=== PATIENT | male | born 1970 | race Caucasian/White ===

== ENCOUNTER 2020-01-10 10:10 | Outpatient (REF) | payer OTHER, SELFPAY ==
--- NOTE | 2020-01-10 10:27 | XR_ITS ---
EXAMINATION: XR BOTH KNEES AP STANDING XR LEFT KNEE, 2 VIEWS CLINICAL INFORMATION: Unilateral primary osteoarthritis in the left knee. COMPARISON: None. TECHNIQUE: Standing AP view of both knees and lateral and sunrise views of the left knee. FINDINGS: Left Knee: Screw tracks are evident within the tibial plateau from prior ORIF. Multiple punctate radiodense foreign bodies are present in the posterior lateral aspect of the knee, presumably related to prior surgical intervention or prior injury. No acute fractures are identified. The patella is absent. There is moderate osteophytes in the medial lateral compartments with nonuniform joint space narrowing, marginal osteophytes, cortical irregularity, and chondrocalcinosis. No appreciable joint effusion. Small foci of heterotopic ossification are present in the expected location of the patella. Right Knee: Moderate medial compartment osteoarthritis with joint space narrowing and marginal osteophytes. More mild lateral compartment osteophytes. Varus angulation is present at the right knee. Chondrocalcinosis is noted. IMPRESSION: Surgical absence of the left patella. Chronic postsurgical changes of prior ORIF of the tibial plateau with numerous punctate foreign bodies in the soft tissues surrounding the left knee. Moderate osteoarthritis in the left knee medial and lateral compartments. Moderate osteoarthritis in the medial compartment of the right knee with varus angulation.
== END 2020-01-10 10:11 | disposition home or self-care (01) ==
LOC: CF 10:10
PROVIDERS: PCP Internal Medicine; Visit Provider Orthopaedic Surgery
DX: M17.32 Unilateral post-traumatic osteoarthritis, left knee (principal)
CPT/HCPCS: 20610; 73562; 99204; J1100

== ENCOUNTER → 2020-02-14 10:39 | Outpatient (BNVA) | payer OTHER, SELFPAY | PROVIDERS: Visit Provider Orthopaedic Surgery | DX: M17.32 Unilateral post-traumatic osteoarthritis, left knee (principal); T14.90XS Injury, unspecified, sequela; M22.90 Unspecified disorder of patella, unspecified knee | CPT/HCPCS: 99212 ==

== ENCOUNTER 2020-03-05 09:04 | Outpatient (REF) | payer OTHER, SELFPAY | END 2020-03-05 09:05 | disposition home or self-care (01) | LOC: HO.HAP 09:04 | PROVIDERS: PCP Allergy & Immunology Allergy; Referring Provider Allergy & Immunology Allergy; Visit Provider Allergy & Immunology Allergy | DX: Z13.89 Encounter for screening for other disorder (principal) | CPT/HCPCS: 92700 ==

== ENCOUNTER 2020-03-19 14:21 | Outpatient (REF) | payer OTHER, SELFPAY | END 2020-03-19 14:22 | disposition home or self-care (01) | LOC: HO.HAP 14:21 | PROVIDERS: Visit Provider Allergy & Immunology Allergy | DX: Z13.89 Encounter for screening for other disorder (principal) ==

== ENCOUNTER 2020-05-01 08:42 | Outpatient (REF) | payer OTHER, SELFPAY ==
--- NOTE | 2020-05-01 08:46 | MR_ITS ---
EXAMINATION: MR KNEE WITHOUT CONTRAST, LEFT CLINICAL INFORMATION: Left knee pain. COMPARISON: Radiographs 01/10/2020. TECHNIQUE: MRI of the knee without contrast was performed using routine sequences on a high-field scanner. There is extensive micrometallic artifact from previous surgeries that obscure visualization. FINDINGS: MENISCI: Medial Meniscus: Visualization is largely obscured. No definite tear. Meniscal body is slightly attenuated and extruded. Lateral Meniscus: Visualization is predominately obscured. No obvious tear. LIGAMENTS: Cruciate: Visualization is obscured by artifact. The posterior cruciate ligament is intact. The ACL is not visualized, possibly a chronic complete tear with resorption. Collateral: Intact. EXTENSOR MECHANISM: The patella is essentially absent. There may be a few small ossific fragments remaining, with the quadriceps and patellar tendons appearing intact. ARTICULAR CARTILAGE/BONE: Patellofemoral Compartment: Cartilage thinning throughout the trochlea. Medial Compartment: Mild cartilage thinning with areas of surface irregularity throughout the weightbearing aspect with marginal osteophytes. Lateral Compartment: Prominent marginal osteophytes. JOINT FLUID AND BURSAE: Trace joint effusion. MR/MR knee LT wo con IMPRESSION: Postsurgical changes as described with extensive metallic artifact. Probable chronic complete ACL tear with resorption. No definite meniscal tear. The medial meniscus body is slightly attenuated and extruded. Postsurgical changes of the extensor mechanism with no acute abnormality. [id number] medial and lateral compartment osteoarthritis with a trace joint effusion.
== END 2020-05-01 08:43 | disposition home or self-care (01) ==
LOC: HO.MRI 08:42
PROVIDERS: Visit Provider Orthopaedic Surgery
DX: M17.32 Unilateral post-traumatic osteoarthritis, left knee (principal)
CPT/HCPCS: 73721

== ENCOUNTER → 2020-05-08 10:38 | Outpatient (BNVA) | payer OTHER, SELFPAY | PROVIDERS: Visit Provider Orthopaedic Surgery | DX: M22.92 Unspecified disorder of patella, left knee (principal); M17.32 Unilateral post-traumatic osteoarthritis, left knee; T14.90XS Injury, unspecified, sequela | CPT/HCPCS: 99212 ==

== ENCOUNTER 2020-06-09 08:45 | Outpatient (REF) | payer OTHER, SELFPAY ==
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
== END 2020-06-09 08:46 | disposition home or self-care (01) ==
LOC: HO.SH 08:45
PROVIDERS: Visit Provider Internal Medicine
DX: Z46.1 Encounter for fitting and adjustment of hearing aid (principal); H90.3 Sensorineural hearing loss, bilateral; H93.13 Tinnitus, bilateral
CPT/HCPCS: 92557; 92567; 92593; 99499

== ENCOUNTER → 2020-06-12 11:16 | Outpatient (BNVA) | payer OTHER, SELFPAY | PROVIDERS: PCP Internal Medicine; Visit Provider Orthopaedic Surgery | DX: M17.32 Unilateral post-traumatic osteoarthritis, left knee (principal); M22.90 Unspecified disorder of patella, unspecified knee; M17.11 Unilateral primary osteoarthritis, right knee; S06.9X9A Unspecified intracranial injury with loss of consciousness of unspecified duration, initial encounter | CPT/HCPCS: 20610; 99212; J1100; J7318 ==

== ENCOUNTER → 2020-07-10 09:36 | Outpatient (BNVA) | payer OTHER, SELFPAY | PROVIDERS: Visit Provider Orthopaedic Surgery | DX: M17.32 Unilateral post-traumatic osteoarthritis, left knee (principal) | CPT/HCPCS: 99212 ==

== ENCOUNTER 2020-09-04 09:46 | Outpatient (REF) | payer OTHER, SELFPAY ==
--- NOTE | 2020-09-04 11:16 | ECG_ITS ---
Test Reason : PREOP Blood Pressure : / mmHG Vent. Rate : 089 BPM Atrial Rate : 089 BPM P-R Int : 144 ms QRS Dur : 078 ms QT Int : 352 ms P-R-T Axes : 059 022 045 degrees QTc Int : 428 ms Normal sinus rhythm Normal ECG No previous ECGs available Referred By: Valentín Alejandro Electronically Signed By:Lakhwinder Atkinson
[2020-09-04 12:12] LABS: MANUAL DIFF FLAG NO
[2020-09-04 12:20] LABS: Basophils Percent Auto 0.5 % (0-2); Eosinophils Absolute Auto 0.1 X10*3/uL (0.0-0.4); Eosinophils Percent Auto 0.9 % (0-4); Hematocrit 42.2 % (42-52); Hemoglobin 14.4 g/dl (14.0-18.0); Imm Gran Abs Auto 0.05 X10*3/uL (0.00-0.03); Imm Gran Pct Auto 0.6 % (0.0-0.4); Lymphocytes Percent Auto 25.6 % (20-40); Mean Corpuscular HGB Conc 34.1 g/dl (31.0-36.0); Mean Corpuscular Hemoglobin 28.1 pg (27.0-33.0); Mean Corpuscular Volume 82.3 fL (80-98); Mean Platelet Volume 9.9 fL (9.4-12.4); Monocytes Absolute Auto 0.6 X10*3/uL (0.1-1.2); Monocytes Percent Auto 7.7 % (2-11); Neutrophils Absolute Auto 5.2 X10*3/uL (2.0-8.3); Neutrophils Percent Auto 64.7 % (45-73); Platelet Count 212 X10*3/uL (160-400); Red Blood Count 5.13 X10*6/uL (4.60-5.80); Red Cell Distribution Width 12.1 % (11.0-16.0)
[2020-09-04 13:00] LABS: Anion Gap 11 (12-20); Blood Urea Nitrogen 6 mg/dL (9-16); Calcium 9.6 mg/dL (8.4-10.2); Carbon Dioxide 29 mmol/L (22-29); Chloride 105 mmol/L (96-108); Estimated Glomerular Filt Rate > 60; Glucose Random 104 mg/dL (60-115); Potassium 4.2 mmol/L (3.3-5.1); Sodium 141 mmol/L (135-145)
== END 2020-09-04 09:47 | disposition home or self-care (01) ==
LOC: HO.LAB 09:46
PROVIDERS: PCP Internal Medicine; Visit Provider Orthopaedic Surgery
DX: Z01.810 Encounter for preprocedural cardiovascular examination (principal); Z01.812 Encounter for preprocedural laboratory examination
CPT/HCPCS: 36415; 80048; 85025; 93005

== ENCOUNTER 2020-09-25 08:26 | Outpatient (REF) | payer OTHER, SELFPAY ==
[2020-09-25 11:58] LABS: Cholesterol 235 mg/dL; HDL Cholesterol 33 mg/dL; Triglycerides 421 mg/dL
[2020-09-25 12:05] LABS: TSH reflex Free T4 0.32 uIU/mL (0.32-4.0); Vitamin D 25-OH Total 22.7 ng/mL (>30)
[2020-09-25 12:23] LABS: Folate 18.6 ng/mL (> or = 4.0); Vitamin B12 477 pg/mL (200-900)
== END 2020-09-25 08:27 | disposition home or self-care (01) ==
LOC: HO.WFDLDS 08:26
PROVIDERS: Visit Provider Internal Medicine
DX: E05.90 Thyrotoxicosis, unspecified without thyrotoxic crisis or storm (principal); E55.9 Vitamin D deficiency, unspecified
CPT/HCPCS: 36415; 80061; 82306; 82607; 82746; 84443

== ENCOUNTER 2020-10-14 07:00 | Outpatient (RCR) | payer OTHER, SELFPAY | END 2021-04-20 09:21 | disposition home or self-care (01) | LOC: HO.PTWFD 07:00 | PROVIDERS: PCP Internal Medicine; Visit Provider Orthopaedic Surgery | DX: M22.90 Unspecified disorder of patella, unspecified knee (principal) | CPT/HCPCS: 97110; 97116; 97162; 97530; 97535 ==

== ENCOUNTER → 2020-10-23 12:37 | Outpatient (BNVA) | payer OTHER, SELFPAY | PROVIDERS: Visit Provider Physician Assistant | DX: Z01.812 Encounter for preprocedural laboratory examination (principal); M17.32 Unilateral post-traumatic osteoarthritis, left knee; F17.210 Nicotine dependence, cigarettes, uncomplicated | CPT/HCPCS: 99212 ==

== ENCOUNTER 2020-10-28 08:16 | Inpatient (IN) | payer OTHER, SELFPAY ==
--- NOTE | 2020-10-03 11:49 | HO.ANESPROP2 ---
Documented by User: Gertrude Boseney 10/27/20 08:20 HPI - Anesthesia Eval Consult details Narrative: 50yo M for Left Knee Replacement Total PCP cleared [facility] Active Problems Active Problems: All Active Problems (Updated 10/03/20 @ 09:07 by Eboni Cardenas) Patellar disorder (Acute) Post-traumatic osteoarthritis of left knee (Acute) Past Medical History Medical History ADHD, adult residual type Anxiety Bipolar 1 disorder Elevated cholesterol Graves disease Patellar disorder Post-traumatic osteoarthritis of left knee Traumatic brain injury Family History Family History Father CVD (cardiovascular disease) Mother Hypertension Son No problems noted. Family history of problems with anesthesia: No Surgical History Surgical History H/O vasectomy History of left knee surgery History of right knee surgery Hx of surgical procedure History of Problems with Anesthesia: No Social History Social History Are you a primary palliative care specialist to a significant other at home: No Do you presently have visiting nurse or other home services: No Patient Tobacco Use Status: Former Tobacco user Quit Date: 5 months ago Tobacco use type: Cigarette Second Hand Smoke Exposure: No Use of substances other than those prescribed or required for medical reasons: No Have you been hit, kicked, punched, or otherwise hurt by someone within the past year? 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 Narrative Narrative: No recent illness No CP or SOB wihthin limits of OA pain Meds Allergies Allergy/AdvReac Type Severity Reaction Status Date / Time No Known Allergies Allergy Verified 10/23/20 12:44 [No Known Allergies*] Home Medications Medication Instructions Recorded Confirmed Last Taken Type cyclobenzaprine 10 mg tablet 10 mg PO TID PRN 01/02/20 10/02/20 Unknown History multivitamin 1 tab PO DAILY 01/02/20 10/02/20 Unknown History sertraline 100 mg tablet 100 mg PO BEDTIME 01/02/20 09/04/20 Unknown History tramadol 50 mg tablet 50 mg PO BID PRN 09/04/20 10/02/20 Unknown History cholecalciferol (vitamin D3) 1 tab PO DAILY 10/03/20 10/03/20 Unknown History [Vitamin D3] gabapentin 1 tab PO TID 10/03/20 10/03/20 Unknown History nabumetone 1 tab PO BID 10/03/20 10/03/20 Unknown History omega-3 fatty acids-fish oil 1 cap PO BID 10/03/20 10/03/20 Unknown History rosuvastatin 1 tab PO BEDTIME 10/03/20 10/03/20 Unknown History Exam Exam Date and Time: October 03, 2020 1149 Pertinent Lab Results Pertinent Lab Results: Laboratory Tests 09/04/20 09/04/20 11:30 11:30 WBC 8.0 Hgb 14.4 Hct 42.2 Plt Count 212 Sodium 141 Potassium 4.2 Chloride 105 Carbon Dioxide 29 BUN 6 L Creatinine 0.81 Lab Results 10/03/20 10/23/20 Range/Units Unknown 13:48 Nasal Screen MRSA (PCR) NEGATIVE (Negative) Nasal S. aureus Screen POSITIVE A (Negative) Nasal MRSA/S.aureus Interp SEE NOTE Blood Type O Positive Antibody Screen NEGATIVE Narrative Narrative: EKG 09/2020 Vent. Rate : 089 BPM Atrial Rate : 089 BPM P-R Int : 144 ms QRS Dur : 078 ms QT Int : 352 ms P-R-T Axes : 059 022 045 degrees QTc Int : 428 ms Normal sinus rhythm Normal ECG No previous ECGs available Airway Mallampati Class: I TM Dist: >3cm Neck ROM: Full Denture: Upper Loose/Missing/Broken Teeth: Yes (Lower molar missing) Heart: tachy Lungs: CTAB Assessment and Plan Assessment Anesthesia Assessment: Anesthesia Plan Discussed and PAT Visit Documented by User: Timothy Quiros MD 10/28/20 08:56 [facility] Past Medical History Medical History ADHD, adult residual type Anxiety Bipolar 1 disorder Elevated cholesterol Graves disease Patellar disorder Post-traumatic osteoarthritis of left knee Traumatic brain injury Family History Family History Father CVD (cardiovascular disease) Mother Hypertension Son No problems noted. Surgical History Surgical History H/O vasectomy History of left knee surgery History of right knee surgery Hx of surgical procedure Social History Social History Are you a primary palliative care specialist to a significant other at home: No Do you presently have visiting nurse or other home services: No Patient Tobacco Use Status: Former Tobacco user Quit Date: 5 months ago Tobacco use type: Cigarette Second Hand Smoke Exposure: No Use of substances other than those prescribed or required for medical reasons: No Have you been hit, kicked, punched, or otherwise hurt by someone within the past year? 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 Allergies Allergy/AdvReac Type Severity Reaction Status Date / Time No Known Allergies Allergy Verified 10/23/20 12:44 [No Known Allergies*] Home Medications Medication Instructions Recorded Confirmed Last Taken Type cyclobenzaprine 10 mg tablet 10 mg PO TID PRN 01/02/20 10/02/20 Unknown History multivitamin 1 tab PO DAILY 01/02/20 10/02/20 Unknown History sertraline 100 mg tablet 100 mg PO BEDTIME 01/02/20 09/04/20 Unknown History tramadol 50 mg tablet 50 mg PO BID PRN 09/04/20 10/02/20 Unknown History cholecalciferol (vitamin D3) 1 tab PO DAILY 10/03/20 10/03/20 Unknown History [Vitamin D3] gabapentin 1 tab PO TID 10/03/20 10/03/20 Unknown History nabumetone 1 tab PO BID 10/03/20 10/03/20 Unknown History omega-3 fatty acids-fish oil 1 cap PO BID 10/03/20 10/03/20 Unknown History rosuvastatin 1 tab PO BEDTIME 10/03/20 10/03/20 Unknown History Assessment and Plan Assessment Anesthesia Assessment: Anesthesia Plan Discussed and Chart Reviewed Final Anesthetic Review NPO: Yes ASA Class: II Final Preanesthetic Review: No Changes in Pt Med Stat, Meds/Allgs Chart Reviewed, Consent Obtained/Reviewed and Anes Risks/Benef Reviewed Patient Risk: Low Procedure Risk: Intermediate Anesthetic Plan Anesthetic Plan: MAC:, Spinal and Regional Block Disposition: Standard PACU
[2020-10-03 12:17] VITALS: BMI 23.3
[2020-10-03 12:26] VITALS: BP 134/95; PULSE 104; RESP 20; O2SAT 98
[2020-10-03 15:20] LABS: MRSA Nasal PCR NEGATIVE (Negative); SA Nasal PCR POSITIVE (Negative)
[2020-10-28] VITALS (12 sets, daily range): BP systolic 95–174; BP diastolic 58–117; PULSE 81–122; RESP 14–18; TEMP 36.2–37.2; O2SAT 96–100
--- NOTE | ~2020-10-28 | XR_ITS ---
EXAMINATION: XR KNEE, LEFT CLINICAL INFORMATION: Status post left TKA. COMPARISON: Left knee 01/10/2020 TECHNIQUE: Four views of the left knee. FINDINGS: There is a total left knee prosthesis with prosthetic components in satisfactory alignment. Immediate postoperative changes are noted with anterior skin juan f. XR/XR knee LT 2V IMPRESSION: Total left knee arthroplasty with prosthetic components in satisfactory alignment.
[2020-10-28 08:33] LABS: COVID-19 Test Negative (Negative)
[2020-10-28] MEDS: Lactated Ringers 1,000 ML 100 ML IVCONT (08:52)
--- NOTE | 2020-10-28 09:34 | MHC.SHP ---
Pre-Procedural Eval Section A Date of Service: 10/28/20 The patient is an INPATIENT: No Changes since office visit: Yes Patient answered all questions; No Cold of Flu in the past 2 weeks, No New Medical Problems and No Changes in Medication The History & Physical has been completed within 30 days and I have reviewed it.: Yes Section B Chief Complaint: Left Total Knee Arthroplasty Allergies: Allergies Allergy/AdvReac Type Severity Reaction Status Date / Time No Known Allergies Allergy Verified 10/23/20 12:44 [No Known Allergies*] Plan I have reviewed the history and physical and performed a pertinent physical examination on my patient. No changes have occurred unless specified.
--- NOTE | 2020-10-28 11:59 | P.BOP_ITS ---
Brief Operative Note Date of Service: 10/28/20 Pre-op diagnosis: left knee OA Post-op diagnosis: same Procedure: Left TKA Implants: [place] triathalon press fit 07/07/10PS Surgeon: Valentín Alejandro MD Anesthesia: GETA and regional Was an Pastoral Counselor used for this Procedure?: Yes Pastoral Counselor: Katie Quiroga Estimated blood loss (mL): 150 Tourniquet time (min): 42 IV fluids (mL): 1,000 Pathology: other Condition: stable Disposition: PACU
--- NOTE | 2020-10-28 12:01 | W.PM.OPN ---
Operative Note Operative Note Date of Service: 10/28/20 Narrative: Pre-op diagnosis: left knee OA Post-op diagnosis: same Procedure: Left TKA Implants: [place] triathalon press fit 07/07/10 Surgeon: Valentín Alejandro MD Anesthesia: GETA and regional Was an Electrostatic Powder Coating Technician used for this Procedure?: Yes Electrostatic Powder Coating Technician: Katie Quiroga Estimated blood loss (mL): 150 Tourniquet time (min): 42 IV fluids (mL): 1,000 Pathology: other Condition: stable Disposition: PACU Procedure in detail: Patient was brought to the operating room and prepped and draped in standard sterile fashion. A time-out was called to identify proper site proper procedure proper surgeon IV antibiotics were administered. 1 g of IV tranexamic acid was also administered. I began by making a midline incision to the retinaculum. He had had a prior patellectomy so I fermormed a modified medial perapatellar arthrotomy. and performed a medial parapatellar arthrotomy. The knee was flexed up and the trochlea and medial femoral condyle were eburnated. I performed a small medial peel and resected the infrapatellar fat pad. Dorchester's line was then used to drill my intramedullary femoral guide and my distal femur cut was made in 5 degrees of valgus. I then measured a # __4_ femur and placed my cutting guide and made my anterior posterior and chamfer cuts protecting the soft tissues at all times. A box cut was made slightly lateral and the PCL was removed. Once I was satisfied with my cut I turned my attention to the tibia. I removed the meniscus and , using an external cutting guide, in line with the tibial crest and the third ray, I made my distal tibial cut with slight posterior slope while the posterior soft tissues at all times. An extension block was used to confirm appropriate amount of bony resection. I then sized a #_5__ tibia and once I was satisfied that there was good tibial coverage I placed my trial in slight external rotation and with the trial femur in place took the knee through range of motion. I was satisfied with the extension and flexion as well as the stability at 0, 30 and 90 degrees. I then returned to the femur and drilled my femoral lug holes and prepared the tibia. Femoral bone plug was then placed and the knee was irrigated copiously. I then press fit the tibia and femur in standard fashion. I trialed different inserts until I selected a #___11PS_ insert. The final insert was placed and a 3 minutes iodine soak with local TXA was performed. The knee was then closed with a running Quill suture, a 3 0 Vicryl and juan f on the skin. Patient was then placed in sterile dressing and brought to recovery room in stable condition there were no known complications.
--- NOTE | 2020-10-28 15:27 | PM.IMCN ---
History of Present Illness Data of Consult Service Date: 10/28/20 Primary Care Provider: Chris Floyd MD HPI Reason for consult: hld 50M presented for elective left knee replacement. he has history of mood disorder on zoloft, well controlled, and hld on crestor. he is feeling well postoperatively, denies pain, sob, fever, chills. Review of Systems Cardiovascular: Cardiovascular: Reports no additional cardiovascular complaints Respiratory: Respiratory: Reports no additional respiratory complaints Gastrointestinal: Gastrointestinal: Reports no additional gastrointestinal complaints Genitourinary: Genitourinary: Reports no additional male genitourinary complaints Musculoskeletal: Musculoskeletal: Reports no additional musculoskeletal complaints PMFSH Medical History ADHD, adult residual type Anxiety Bipolar 1 disorder Elevated cholesterol Graves disease Patellar disorder Post-traumatic osteoarthritis of left knee Traumatic brain injury Family History Father CVD (cardiovascular disease) Mother Hypertension Son No problems noted. Family history: reviewed and not pertinent Surgical History H/O vasectomy History of left knee surgery History of right knee surgery Hx of surgical procedure Social History Are you a primary healthcare liaison to a significant other at home: No Do you presently have visiting nurse or other home services: No Patient Tobacco Use Status: Former Tobacco user Quit Date: 5 months ago Tobacco use type: Cigarette Second Hand Smoke Exposure: No Use of substances other than those prescribed or required for medical reasons: No Have you been hit, kicked, punched, or otherwise hurt by someone within the past year? 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 Allergies Allergy/AdvReac Type Severity Reaction Status Date / Time No Known Allergies Allergy Verified 10/23/20 12:44 [No Known Allergies*] Active Medications: Current Medications Generic Name Dose Route Start Last Admin Trade Name Freq PRN Reason Stop Dose Admin Acetaminophen 650 mg 10/28/20 15:16 Acetaminophen 325 Mg Tablet PO Q6H PRN Pain, Mild (Pain Scale 1-3) Atorvastatin Calcium 40 mg 10/28/20 21:00 Atorvastatin Calcium 40 Mg Tablet PO BEDTIME [facility] Celecoxib 200 mg 10/28/20 21:00 Celecoxib 200 Mg Capsule PO BID [facility] Cyclobenzaprine HCl 10 mg 10/28/20 15:16 Cyclobenzaprine Hcl 10 Mg Tablet PO TID PRN Pain Docusate Sodium 100 mg 10/28/20 21:00 Docusate Sodium 100 Mg Capsule PO BID [facility] Gabapentin 600 mg 10/28/20 15:16 Gabapentin 600 Mg Tablet PO TID [facility] Hydromorphone HCl 0.25 mg 10/28/20 15:16 Hydromorphone Hcl 0.5 Mg/0.5 Ml Syringe IVPUSH Q4H PRN Pain, Severe (Pain Scale 7-10) Dextrose/Sodium Chloride 1,000 mls @ 80 mls/hr 10/28/20 15:16 D51/2ns IVCONT .[id number] [facility] Cefazolin Sodium 2 gm/ Sodium 50 mls @ 100 mls/hr 10/28/20 16:00 Chloride IV 10/28/20 16:29 POSTOP ONE Multivitamins/Vitamin C 1 tab 10/29/20 09:00 Multivitamin Tablet PO DAILY [facility] Naloxone HCl 0.2 mg 10/28/20 15:16 Naloxone Hcl 0.4 Mg/Ml Vial IVPUSH Q2M PRN Excessive sedation or RR < 8 Ondansetron HCl 4 mg 10/28/20 15:16 Ondansetron Hcl 4 Mg/2 Ml Vial IVPUSH Q8H PRN Nausea and Vomiting Oxycodone HCl 10 mg 10/28/20 15:16 Oxycodone Hcl Immed Release 5 Mg Tablet PO Q4H PRN Pain, Moderate (Pain Scale 4-6 Oxycodone HCl 10 mg 10/28/20 21:00 Oxycodone Hcl Er 10 Mg Tab.Er.12h PO BID [facility] Sodium Chloride 3 ml 10/28/20 16:00 0.9 % Sodium Chloride Flush 3 Ml Syringe IVFLUSH QSHIFT [facility] Home Medications Medication Instructions Recorded Confirmed Last Taken Type cyclobenzaprine 10 mg tablet 10 mg PO TID PRN 01/02/20 10/02/20 Unknown History multivitamin 1 tab PO DAILY 01/02/20 10/02/20 Unknown History sertraline 100 mg tablet 100 mg PO BEDTIME 01/02/20 09/04/20 Unknown History tramadol 50 mg tablet 50 mg PO BID PRN 09/04/20 10/02/20 Unknown History cholecalciferol (vitamin D3) 1 tab PO DAILY 10/03/20 10/03/20 Unknown History [Vitamin D3] gabapentin 1 tab PO TID 10/03/20 10/03/20 10/28/20 History nabumetone 1 tab PO BID 10/03/20 10/03/20 Unknown History omega-3 fatty acids-fish oil 1 cap PO BID 10/03/20 10/03/20 Unknown History rosuvastatin 1 tab PO BEDTIME 10/03/20 10/03/20 Unknown History Physical Exam Vital Signs and Narrative: Vital Signs: Last Vital Signs Temp 97.2 F 10/28/20 13:35 Pulse 89 10/28/20 13:35 Resp 16 10/28/20 13:35 BP 119/79 10/28/20 13:35 Pulse Ox 98 10/28/20 13:35 Body Mass Index 23.3 General: no acute distress HEENT: atraumatic Neck: normal to visual inspection CVS: S1, S2, RRR Resp: CTA bilateral Chest: non tender GI: soft, non tender, non distended : no CVA tenderness Skin: no rashes Extremities: no edema Neuro: Oriented X3, grossly intact Psych: cooperative Results Labs Labs: Laboratory Results - last 24 hr 10/28/20 08:11 COVID-19 (DEX) Negative COVID-19 Clin Com See Note Imaging Radiologist's Impressions: Impressions Knee X-Ray 10/28/20 12:20 IMPRESSION: Total left knee arthroplasty with prosthetic components in satisfactory alignment. Assessment and Plan (1) Patellar disorder: Status: Acute 50M presented for left TKA s/p left TKA management per ortho hld statin mood disorder zoloft
--- NOTE | 2020-10-28 15:47 | PC.NURSE ---
PT RECEIVED INTO ROOM 385 AT 1350 PT WAS ALERT AND ORIENTED. ORIENTED TO ROOM. DSG D&I DENIED PAIN.
[2020-10-28] MEDS: HYDROmorphone HCl 0.5 MG/0.5 ML SYRINGE 0.25 MG IVPUSH ×2 (15:53→20:39)
[2020-10-28] MEDS: 0.9 % Sodium Chloride Flush 3 ML SYRINGE IVFLUSH (15:58)
[2020-10-28] MEDS: Gabapentin 600 MG TABLET PO ×2 (15:58→20:32)
[2020-10-28] MEDS: Dextrose 5 % and 0.45 % NaCl 1,000 ML 80 ML IVCONT (15:58)
[2020-10-28] MEDS: oxyCODONE HCl Immed Release 5 MG TABLET 10 MG PO (18:57)
[2020-10-28] MEDS: Celecoxib 200 MG CAPSULE PO (20:31)
[2020-10-28] MEDS: Atorvastatin Calcium 40 MG TABLET PO (20:32)
[2020-10-28] MEDS: oxyCODONE HCl ER 10 MG TAB.ER.12H PO (20:32)
[2020-10-28] MEDS: Docusate Sodium 100 MG CAPSULE PO (20:32)
[2020-10-28] MEDS: Acetaminophen 325 MG TABLET 650 MG PO (20:39)
[2020-10-28] MEDS: Cyclobenzaprine HCl 10 MG TABLET PO (20:39)
[2020-10-29] MEDS: Dextrose 5 % and 0.45 % NaCl 1,000 ML 80 ML IVCONT ×2 (02:58→15:27)
[2020-10-29 06:36] LABS: Basophils Percent Auto 0.1 % (0-2); Hematocrit 34.9 % (42-52); Hemoglobin 11.8 g/dl (14.0-18.0); Imm Gran Abs Auto 0.09 X10*3/uL (0.00-0.03); Imm Gran Pct Auto 0.5 % (0.0-0.4); Lymphocytes Absolute Auto 1.3 X10*3/uL (1.2-4.9); Lymphocytes Percent Auto 7.9 % (20-40); MANUAL DIFF FLAG SCAN; Mean Corpuscular HGB Conc 33.8 g/dl (31.0-36.0); Mean Corpuscular Hemoglobin 28.4 pg (27.0-33.0); Mean Corpuscular Volume 83.9 fL (80-98); Mean Platelet Volume 10.3 fL (9.4-12.4); Monocytes Absolute Auto 1.7 X10*3/uL (0.1-1.2); Monocytes Percent Auto 10.2 % (2-11); Neutrophils Absolute Auto 13.4 X10*3/uL (2.0-8.3); Neutrophils Percent Auto 81.3 % (45-73); Platelet Count 196 X10*3/uL (160-400); Red Blood Count 4.16 X10*6/uL (4.60-5.80); Red Cell Distribution Width 12.3 % (11.0-16.0); SCAN SMEAR FLAG 1; White Blood Count 16.4 X10*3/uL (4.8-10.8)
[2020-10-29 06:47] LABS: Anion Gap 13 (12-20); Blood Urea Nitrogen 15 mg/dL (9-16); Calcium 9.1 mg/dL (8.4-10.2); Carbon Dioxide 28 mmol/L (22-29); Chloride 102 mmol/L (96-108); Creatinine Clr Calc Pharmacy 113.3; Estimated Glomerular Filt Rate > 60; Glucose Fasting 138 mg/dL (60-99); Sodium 139 mmol/L (135-145)
[2020-10-29 07:32] VITALS: BP 122/89; PULSE 92; RESP 17; TEMP 36.2; O2SAT 99
--- NOTE | 2020-10-29 07:38 | P.PNOP_ITS ---
Subjective Subjective Date of Service: 10/29/20 Interval history: POD1 s/p LTKA with Dr. Alejandro. No overnight events. Pain is well managed. Denies SOB, CP, abd pain. Physical Exam Vital Signs: Vital Signs: Last Vital Signs Temp 97.2 F 10/29/20 07:32 Pulse 92 10/29/20 07:32 Resp 17 10/29/20 07:32 BP 122/89 10/29/20 07:32 Pulse Ox 99 10/29/20 07:32 Body Mass Index 23.3 Const: General: cooperative, healthy appearing and no acute distress Resp: Effort & Inspection: normal respiratory effort and able to speak in comp lete sentences Cardio: Rate: regular rate Peripheral pulses: Peripheral pulses 2+ throughout GI: Palpation (GI): Soft to palpation Skin: Lesions: no lesions Rashes: no rashes Extrem: Other: Left knee no ecchymosis, redness, or drainage. Aquacel is clean dry and intact. Patient is able to dorsiflex and plantar flex. Pedal pulse intact. Procedures Date of Service Date of Service: 10/29/20 Progress Note: A&P Assessment and plan (1) Status post total knee replacement, left: Status: Acute Assessment and Plan: Continue pain mgmnt Begin ASA for dvt ppx begin PT for LTKA Dispo planning-Pending PT eval, pain mgmnt Fall Risk Details Current Medications: Current Medications Generic Name Dose Route Start Last Admin Trade Name Freq PRN Reason Stop Dose Admin Acetaminophen 650 mg 10/28/20 15:16 10/28/20 20:39 Acetaminophen 325 Mg Tablet PO 650 mg Q6H PRN Administration Pain, Mild (Pain Scale 1-3) Aspirin 325 mg 10/29/20 10:00 Aspirin 325 Mg Tablet PO BID@1000,2200 SERGEY Atorvastatin Calcium 40 mg 10/28/20 21:00 10/28/20 20:32 Atorvastatin Calcium 40 Mg Tablet PO 40 mg BEDTIME SERGEY Administration Celecoxib 200 mg 10/28/20 21:00 10/28/20 20:31 Celecoxib 200 Mg Capsule PO 200 mg BID SERGEY Administration Cyclobenzaprine HCl 10 mg 10/28/20 15:16 10/28/20 20:39 Cyclobenzaprine Hcl 10 Mg Tablet PO 10 mg TID PRN Administration Pain Docusate Sodium 100 mg 10/28/20 21:00 10/28/20 20:32 Docusate Sodium 100 Mg Capsule PO 100 mg BID SERGEY Administration Gabapentin 600 mg 10/28/20 15:16 10/28/20 20:32 Gabapentin 600 Mg Tablet PO 600 mg TID SERGEY Administration Hydromorphone HCl 0.25 mg 10/28/20 15:16 10/28/20 20:39 Hydromorphone Hcl 0.5 Mg/0.5 Ml Syringe IVPUSH 0.25 mg Q4H PRN Administration Pain, Severe (Pain Scale 7-10) Dextrose/Sodium Chloride 1,000 mls @ 80 mls/hr 10/28/20 15:16 10/29/20 02:58 D51/2ns IVCONT 80 mls/hr .[id number] SERGEY Administration Multivitamins/Vitamin C 1 tab 10/29/20 09:00 Multivitamin Tablet PO DAILY SERGEY Naloxone HCl 0.2 mg 10/28/20 15:16 Naloxone Hcl 0.4 Mg/Ml Vial IVPUSH Q2M PRN Excessive sedation or RR < 8 Ondansetron HCl 4 mg 10/28/20 15:16 Ondansetron Hcl 4 Mg/2 Ml Vial IVPUSH Q8H PRN Nausea and Vomiting Oxycodone HCl 10 mg 10/28/20 15:16 10/28/20 18:57 Oxycodone Hcl Immed Release 5 Mg Tablet PO 10 mg Q4H PRN Administration Pain, Moderate (Pain Scale 4-6 Oxycodone HCl 10 mg 10/28/20 21:00 10/28/20 20:32 Oxycodone Hcl Er 10 Mg Tab.Er.12h PO 10 mg BID SERGEY Administration Sertraline HCl 100 mg 10/29/20 09:00 Sertraline Hcl 100 Mg Tablet PO DAILY SERGEY Sodium Chloride 3 ml 10/28/20 16:00 10/28/20 21:30 0.9 % Sodium Chloride Flush 3 Ml Syringe IVFLUSH Not Given QSHIFT SERGEY Time Spent With Patient Time: Total time spent is greater than 50% in coordination of care (as documented) at patient's floor/unit and/or counseling patient: Time with patient: less than 15 minutes Quality Stroke Does the patient have a stroke diagnosis?: No VTE Prior VTE?: No VTE Risk Level:: Surgical - high VTE Device Contraindication: N/A - Device Ordered VTE Drug Contraindication: N/A - Med Ordered
[2020-10-29 07:45] LABS: SLIDE REVIEW VERIFIED
[2020-10-29] MEDS: Multivitamin TABLET 1 TAB PO (07:59)
[2020-10-29] MEDS: Docusate Sodium 100 MG CAPSULE PO ×2 (07:59→21:13)
[2020-10-29] MEDS: Celecoxib 200 MG CAPSULE PO ×2 (07:59→21:13)
[2020-10-29] MEDS: Gabapentin 600 MG TABLET PO ×3 (07:59→21:13)
[2020-10-29] MEDS: oxyCODONE HCl Immed Release 5 MG TABLET 10 MG PO ×3 (07:59→16:59)
[2020-10-29] MEDS: Sertraline HCL 100 MG TABLET PO (07:59)
[2020-10-29 08:09] VITALS: BP 122/89; PULSE 92; O2SAT 99
[2020-10-29] MEDS: Aspirin 325 MG TABLET PO ×2 (08:38→21:13)
[2020-10-29] MEDS: oxyCODONE HCl ER 10 MG TAB.ER.12H PO ×2 (08:38→21:13)
[2020-10-29] MEDS: Cyclobenzaprine HCl 10 MG TABLET PO ×2 (08:39→14:32)
--- NOTE | 2020-10-29 08:40 | HO.POSTANES ---
Post Anesthesia Evaluation Post Anesthesia Evaluation Vital Signs: Vital Signs Temp Pulse Resp BP Pulse Ox 10/29/20 07:32 97.2 F 92 17 122/89 99 10/28/20 23:49 97.3 F 84 18 102/73 96 10/28/20 20:48 98.7 F 122 H 16 135/85 97 Anesthesia: General Mental Status: Awake Pain Control: Satisfactory Nausea/Vomiting: None Hydration: Adequate Anesthesia-Related Issues: No Anes. Related Issues
[2020-10-29 11:06] VITALS: BP 159/74; PULSE 94; RESP 17; TEMP 36.1; O2SAT 100
[2020-10-29 13:39] VITALS: BP 159/74; PULSE 94; O2SAT 100
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
--- NOTE | 2020-10-29 15:12 | HO.PM.IMPN ---
Subjective Subjective Date of Service: 10/29/20 Review of Systems Feels comfortable with complain mainly of knee pain Physical Exam Vital Signs: Vital Signs: Last Vital Signs Temp 97.0 F 10/29/20 11:06 Pulse 94 10/29/20 13:39 Resp 17 10/29/20 11:06 BP 159/74 H 10/29/20 13:39 Pulse Ox 100 10/29/20 13:39 Body Mass Index 23.3 Const: Other: Alert, oriented Knee covered with dressing, no drainage Breathing bilaterally well, no wheezing Skin clear with no Objective Data Current Medications Generic Name Dose Route Start Last Admin Trade Name Freq PRN Reason Stop Dose Admin Acetaminophen 650 mg 10/28/20 15:16 10/28/20 20:39 Acetaminophen 325 Mg Tablet PO 650 mg Q6H PRN Administration Pain, Mild (Pain Scale 1-3) Aspirin 325 mg 10/29/20 10:00 10/29/20 08:38 Aspirin 325 Mg Tablet PO 325 mg BID@1000,2200 SERGEY Administration Atorvastatin Calcium 40 mg 10/28/20 21:00 10/28/20 20:32 Atorvastatin Calcium 40 Mg Tablet PO 40 mg BEDTIME SERGEY Administration Celecoxib 200 mg 10/28/20 21:00 10/29/20 07:59 Celecoxib 200 Mg Capsule PO 200 mg BID SERGEY Administration Cyclobenzaprine HCl 10 mg 10/28/20 15:16 10/29/20 14:32 Cyclobenzaprine Hcl 10 Mg Tablet PO 10 mg TID PRN Administration Pain Docusate Sodium 100 mg 10/28/20 21:00 10/29/20 07:59 Docusate Sodium 100 Mg Capsule PO 100 mg BID SERGEY Administration Gabapentin 600 mg 10/28/20 15:16 10/29/20 14:32 Gabapentin 600 Mg Tablet PO 600 mg TID SERGEY Administration Hydromorphone HCl 0.25 mg 10/28/20 15:16 10/28/20 20:39 Hydromorphone Hcl 0.5 Mg/0.5 Ml Syringe IVPUSH 0.25 mg Q4H PRN Administration Pain, Severe (Pain Scale 7-10) Dextrose/Sodium Chloride 1,000 mls @ 80 mls/hr 10/28/20 15:16 10/29/20 02:58 D51/2ns IVCONT 80 mls/hr .[id number] SERGEY Administration Multivitamins/Vitamin C 1 tab 10/29/20 09:00 10/29/20 07:59 Multivitamin Tablet PO 1 tab DAILY SERGEY Administration Naloxone HCl 0.2 mg 10/28/20 15:16 Naloxone Hcl 0.4 Mg/Ml Vial IVPUSH Q2M PRN Excessive sedation or RR < 8 Ondansetron HCl 4 mg 10/28/20 15:16 Ondansetron Hcl 4 Mg/2 Ml Vial IVPUSH Q8H PRN Nausea and Vomiting Oxycodone HCl 10 mg 10/28/20 15:16 10/29/20 12:42 Oxycodone Hcl Immed Release 5 Mg Tablet PO 10 mg Q4H PRN Administration Pain, Moderate (Pain Scale 4-6 Oxycodone HCl 10 mg 10/28/20 21:00 10/29/20 08:38 Oxycodone Hcl Er 10 Mg Tab.Er.12h PO 10 mg BID SERGEY Administration Sertraline HCl 100 mg 10/29/20 09:00 10/29/20 07:59 Sertraline Hcl 100 Mg Tablet PO 100 mg DAILY SERGEY Administration Sodium Chloride 3 ml 10/28/20 16:00 10/29/20 15:11 0.9 % Sodium Chloride Flush 3 Ml Syringe IVFLUSH Not Given QSHIFT [facility] Labs CBC & Chem 7: 10/29/20 05:00 10/29/20 05:00 Labs: Laboratory Results - last 24 hr 10/29/20 10/29/20 05:00 05:00 MCV 83.9 MCH 28.4 MCHC 33.8 RDW 12.3 Plt Count 196 MPV 10.3 Immature Gran % (Auto) 0.5 H Neut % (Auto) 81.3 H Lymph % (Auto) 7.9 L [place] % (Auto) 10.2 Eos % (Auto) 0.0 Baso % (Auto) 0.1 Lymph # (Auto) 1.3 [place] # (Auto) 1.7 H Eos # (Auto) 0.0 Baso # (Auto) 0.0 Abs Immat Gran (auto) 0.09 H Absolute Neuts (auto) 13.4 H Absolute Nucleated RBC 0.000 Nucleated RBC % (auto) 0.0 Smear Tech's Comments VERIFIED Anion Gap 13 Estim Creat Clear Calc 113.3 Estimated GFR > 60 Fasting Glucose 138 H Calcium 9.1 Assessment and Plan (1) Status post total knee replacement, left: Status: Acute Assessment and Plan: 50 years old male with left total knee arthroplasty s/p left TKA management per ortho Hyperlipidemia Continue statin Anxiety disorder zoloft DVT PPX Per orthopedic team Quality Stroke Does the patient have a stroke diagnosis?: No VTE Prior VTE?: No VTE Risk Level:: Surgical - high VTE Device Contraindication: N/A - Device Ordered VTE Drug Contraindication: N/A - Med Ordered
[2020-10-29 15:15] VITALS: BP 164/82; PULSE 104; RESP 16; TEMP 37.1; O2SAT 100
[2020-10-29] MEDS: Acetaminophen 325 MG TABLET 650 MG PO (16:59)
[2020-10-29] MEDS: HYDROmorphone HCl 0.5 MG/0.5 ML SYRINGE 0.25 MG IVPUSH (18:12)
[2020-10-29 18:58] VITALS: BP 139/83; PULSE 93; RESP 18; TEMP 36.3; O2SAT 98
[2020-10-29] MEDS: Atorvastatin Calcium 40 MG TABLET PO (21:14)
[2020-10-30] VITALS: BP 149/83; PULSE 100; RESP 16; TEMP 36.1; O2SAT 99
[2020-10-30] MEDS: 0.9 % Sodium Chloride Flush 3 ML SYRINGE IVFLUSH (00:21)
[2020-10-30] MEDS: oxyCODONE HCl Immed Release 5 MG TABLET 10 MG PO ×3 (00:38→13:16)
[2020-10-30 04:00] VITALS: BP 126/81; PULSE 99; RESP 16; TEMP 36.9; O2SAT 99
[2020-10-30] MEDS: Dextrose 5 % and 0.45 % NaCl 1,000 ML 80 ML IVCONT (05:12)
[2020-10-30 07:08] LABS: Anion Gap 13 (12-20); Blood Urea Nitrogen 11 mg/dL (9-16); Carbon Dioxide 29 mmol/L (22-29); Chloride 105 mmol/L (96-108); Creatinine Clr Calc Pharmacy 113.3; Estimated Glomerular Filt Rate > 60; Glucose Fasting 129 mg/dL (60-99); Potassium 4.7 mmol/L (3.3-5.1); Sodium 142 mmol/L (135-145)
[2020-10-30 07:17] VITALS: BP 127/65; PULSE 105; RESP 17; TEMP 36.2; O2SAT 99
--- NOTE | 2020-10-30 07:59 | PM.DS ---
DS: Providers Provider Date of Service: 10/30/20 Date of admission: 10/28/20 08:16 Primary care physician: Chris Floyd MD Consults: 10/28/20 15:16 Consult to Hospitalist Routine Consulting Provider: Hospitalist Reason For Exam: post op medical managmeent DS: Diagnosis Discharge Diagnosis (1) Status post total knee replacement, left: Status: Acute DS: Medications Discharge Medications Home Medications: Home Medications Medication Instructions Recorded Confirmed cyclobenzaprine 10 mg tablet 10 mg PO TID PRN 01/02/20 10/02/20 multivitamin 1 tab PO DAILY 01/02/20 10/02/20 sertraline 100 mg tablet 100 mg PO BEDTIME 01/02/20 09/04/20 cholecalciferol (vitamin D3) 125 1 tab PO DAILY 10/03/20 10/03/20 mcg (5,000 unit) tablet (Vitamin D3) gabapentin 600 mg tablet 1 tab PO TID 10/03/20 10/03/20 nabumetone 750 mg tablet 1 tab PO BID 10/03/20 10/03/20 omega-3 fatty acids-fish oil 300 1 cap PO BID 10/03/20 10/03/20 mg-1,000 mg capsule rosuvastatin 10 mg tablet 1 tab PO BEDTIME 10/03/20 10/03/20 Previous Rx's Medication Instructions Recorded walker #1 ea 10/23/20 acetaminophen 325 mg tablet 650 mg PO Q6H PRN 30 Days #240 tab 10/30/20 aspirin 325 mg tablet 325 mg PO BID@1000,2200 28 Days 10/30/20 #56 tab docusate sodium 100 mg capsule 100 mg PO BID 14 Days #28 cap 10/30/20 oxycodone 10 mg tablet 10 mg PO Q4H PRN 7 Days #42 tab 10/30/20 DS: Summary Hospital Course Hospital Course: This is a 50-year-old gentleman who presented to the office with left knee pain. 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 Therefore he consented to move forward with left total knee arthroplasty. The patient underwent a successful left total knee arthroplasty, was transferred to PACU and then to the floor to recover. During their stay, their vitals were stable, afebrile at 97.2. Labs were unremarkable . POD 1 he was started on aspirin for DVT ppx, they also received physical therapy services twice a day. Prior to discharge, their dressing was change, incision clean dry and intact, new Aquacel dressing applied and the plan was to be discharged home with VNA services Time Spent with Patient Time attestation: Total time spent providing and/or coordinating discharge services: Discharge coordination time: Less than 30 minutes Quality: Stroke Does the patient have a stroke diagnosis?: No Physical Exam Vital Signs: Vital Signs: Last Vital Signs Temp 97.2 F 10/30/20 07:17 Pulse 105 H 10/30/20 07:17 Resp 17 10/30/20 07:17 BP 127/65 10/30/20 07:17 Pulse Ox 99 10/30/20 07:17 Body Mass Index 23.3 Const: General: cooperative, healthy appearing and no acute distress Resp: Effort & Inspection: normal respiratory effort and able to speak in complete sentences Cardio: Rate: regular rate Peripheral pulses: Peripheral pulses 2+ throughout GI: Palpation (GI): Soft to palpation Skin: General skin exam: no rashes or lesions noted Extrem: Other: incision clean dry and intact. [place] intact. No erythema or joint effusion. Calf supple nontender. Neurovascularly intact. DS: Data Data Completed and Pending Pending studies at discharge: Pending at discharge 10/28/20 11:35 Surgical [PTH] Routine Labs on day of discharge: Laboratory Results - last 24 hr 10/30/20 06:02 Sodium 142 Potassium 4.7 Chloride 105 Carbon Dioxide 29 Anion Gap 13 BUN 11 Creatinine 0.78 Estim Creat Clear Calc 113.3 Estimated GFR > 60 Fasting Glucose 129 H Calcium 9.0 Discharge Plan Discharge Patient Disposition: Home Health Service Discharge Diagnosis: LT TKA Referrals: [facility] [Outside] - 1 Day (DISCHARGED [place] WITH NEW REFERRAL TO THE [facility] FOR HOME PHYSICAL THEAPRY , TO START THE DAY AFTER YOU ARE DISCHARGED PCP CHRIS PEGUERO PATIENT INSTRUCTED TO CALL FOR POST HOSPITLA DISCHARGE FOLLOW UP ORTHOPEDIC SURGICAL FOLLOW IP PER DISCHARGE INSTRUCTIONS TRANSPORTATION FAMILY ) Chris Floyd MD [Primary Care Provider] - 1 Week Discharge Medications: New docusate sodium 100 mg Capsule 100 mg PO BID 14 Days Qty: 28 RF: 0 oxycodone 10 mg tablet 10 mg PO Q4H PRN (Reason: Pain, Moderate (Pain Scale 4-6) 7 Days Qty: 42 RF: 0 aspirin 325 mg Tablet 325 mg PO BID@1000,2200 28 Days Qty: 56 RF: 0 acetaminophen 325 mg Tablet 650 mg PO Q6H PRN (Reason: Pain, Mild (Pain Scale 1-3)) 30 Days Qty: 240 RF: 0 Continued gabapentin 600 mg tablet 1 tab PO TID RF: 0 rosuvastatin 10 mg tablet 1 tab PO BEDTIME RF: 0 cholecalciferol (vitamin D3) [Vitamin D3] 125 mcg (5,000 unit) tablet 1 tab PO DAILY RF: 0 nabumetone 750 mg tablet 1 tab PO BID RF: 0 sertraline 100 mg tablet 100 mg PO BEDTIME RF: 0 cyclobenzaprine 10 mg tablet 10 mg PO TID PRN (Reason: Pain) RF: 0 multivitamin Tablet 1 tab PO DAILY RF: 0 (DME) walker Misc See Rx Instructions .MEDSUPPLY Qty: 1 RF: 0 Held omega-3 fatty acids-fish oil 300-1,000 mg capsule 1 cap PO BID RF: 0 Hold Instructions: Resume on 10/30/20. Hold Fish Oil until Aspirin discontinued Discontinued tramadol 50 mg tablet 50 mg PO BID PRN (Reason: Pain) RF: 0 Discharge Orders: Discharge Order (Routine); Ordered 10/30/20 Ordered By: Katie Quiroga Diet: regular diet Activity on Discharge: Use cane or walker Stand Alone Forms: Patient Portal Discharge page Care Plan Goals: Restore function of joint Health Concerns: none Plan of Treatment: Physical Therapy Pain management DVT prophylaxis Assessment: Physical Therapy for Total knee arthroplasty: gait training, ROM 0-12, quad strength Limit stair climbing No showering, no tub bath-keep dressing clean, dry and intact No driving x6 weeks Continue Aspirin twice a day x 4 weeks Follow up with [facility] Orth[facility]ics in 2 weeks
[2020-10-30] MEDS: Gabapentin 600 MG TABLET PO (08:10)
[2020-10-30] MEDS: Docusate Sodium 100 MG CAPSULE PO (08:10)
[2020-10-30] MEDS: Celecoxib 200 MG CAPSULE PO (08:10)
[2020-10-30] MEDS: Multivitamin TABLET 1 TAB PO (08:10)
[2020-10-30] MEDS: Sertraline HCL 100 MG TABLET PO (08:10)
[2020-10-30] MEDS: oxyCODONE HCl ER 10 MG TAB.ER.12H PO (09:17)
[2020-10-30] MEDS: Aspirin 325 MG TABLET PO (09:17)
[2020-10-30 09:52] VITALS: BP 127/65; PULSE 105; O2SAT 99
[2020-10-30 11:11] VITALS: BP 144/86; PULSE 102; RESP 17; TEMP 36.2; O2SAT 98
--- NOTE | 2020-10-30 12:24 | HO.PM.IMPN ---
Subjective Subjective Date of Service: 10/30/20 Review of Systems Seen and evaluated in the morning Able to ambulate with no reported pain Do not Feels comfortable with complain mainly of knee pain Physical Exam Vital Signs: Vital Signs: Last Vital Signs Temp 97.1 F 10/30/20 11:11 Pulse 102 H 10/30/20 11:11 Resp 17 10/30/20 11:11 BP 144/86 H 10/30/20 11:11 Pulse Ox 98 10/30/20 11:11 Body Mass Index 23.3 Const: Other: Alert, oriented Knee covered with dressing, no drainage Breathing bilaterally well, no wheezing Skin clear with no Objective Data Current Medications Generic Name Dose Route Start Last Admin Trade Name Freq PRN Reason Stop Dose Admin Acetaminophen 650 mg 10/28/20 15:16 10/29/20 16:59 Acetaminophen 325 Mg Tablet PO 650 mg Q6H PRN Administration Pain, Mild (Pain Scale 1-3) Aspirin 325 mg 10/29/20 10:00 10/30/20 09:17 Aspirin 325 Mg Tablet PO 325 mg BID@1000,2200 SERGEY Administration Atorvastatin Calcium 40 mg 10/28/20 21:00 10/29/20 21:14 Atorvastatin Calcium 40 Mg Tablet PO 40 mg BEDTIME SERGEY Administration Celecoxib 200 mg 10/28/20 21:00 10/30/20 08:10 Celecoxib 200 Mg Capsule PO 200 mg BID SERGEY Administration Cyclobenzaprine HCl 10 mg 10/28/20 15:16 10/29/20 14:32 Cyclobenzaprine Hcl 10 Mg Tablet PO 10 mg TID PRN Administration Pain Docusate Sodium 100 mg 10/28/20 21:00 10/30/20 08:10 Docusate Sodium 100 Mg Capsule PO 100 mg BID SERGEY Administration Gabapentin 600 mg 10/28/20 15:16 10/30/20 08:10 Gabapentin 600 Mg Tablet PO 600 mg TID SERGEY Administration Hydromorphone HCl 0.25 mg 10/28/20 15:16 10/29/20 18:12 Hydromorphone Hcl 0.5 Mg/0.5 Ml Syringe IVPUSH 0.25 mg Q4H PRN Administration Pain, Severe (Pain Scale 7-10) Dextrose/Sodium Chloride 1,000 mls @ 80 mls/hr 10/28/20 15:16 10/30/20 05:12 D51/2ns IVCONT 80 mls/hr .[id number] SERGEY Administration Multivitamins/Vitamin C 1 tab 10/29/20 09:00 10/30/20 08:10 Multivitamin Tablet PO 1 tab DAILY SERGEY Administration Naloxone HCl 0.2 mg 10/28/20 15:16 Naloxone Hcl 0.4 Mg/Ml Vial IVPUSH Q2M PRN Excessive sedation or RR < 8 Ondansetron HCl 4 mg 10/28/20 15:16 Ondansetron Hcl 4 Mg/2 Ml Vial IVPUSH Q8H PRN Nausea and Vomiting Oxycodone HCl 10 mg 10/28/20 15:16 10/30/20 08:10 Oxycodone Hcl Immed Release 5 Mg Tablet PO 10 mg Q4H PRN Administration Pain, Moderate (Pain Scale 4-6 Oxycodone HCl 10 mg 10/28/20 21:00 10/30/20 09:17 Oxycodone Hcl Er 10 Mg Tab.Er.12h PO 10 mg BID SERGEY Administration Sertraline HCl 100 mg 10/29/20 09:00 10/30/20 08:10 Sertraline Hcl 100 Mg Tablet PO 100 mg DAILY SERGEY Administration Sodium Chloride 3 ml 10/28/20 16:00 10/30/20 08:11 0.9 % Sodium Chloride Flush 3 Ml Syringe IVFLUSH Not Given QSHIFT [facility] Labs CBC & Chem 7: 10/29/20 05:00 10/30/20 06:02 Labs: Laboratory Results - last 24 hr 10/30/20 06:02 Anion Gap 13 Estim Creat Clear Calc 113.3 Estimated GFR > 60 Fasting Glucose 129 H Calcium 9.0 Assessment and Plan (1) Status post total knee replacement, left: Status: Acute Assessment and Plan: 50 years old male with left total knee arthroplasty s/p left TKA management per ortho Hyperlipidemia Continue statin Anxiety disorder zoloft DVT PPX Per orthopedic team Quality Stroke Does the patient have a stroke diagnosis?: No VTE Prior VTE?: No VTE Risk Level:: Surgical - high VTE Device Contraindication: N/A - Device Ordered VTE Drug Contraindication: N/A - Med Ordered
== END 2020-10-30 13:18 | disposition home health service (06) | DRG 470 ==
LOC: HO.SSSA 08:18 → HO.S3 13:28
PROVIDERS: Physician Assistant; Admitting Provider Orthopaedic Surgery; PCP Internal Medicine; Visit Provider Orthopaedic Surgery
PROC: 0SRD0JA Replacement of Left Knee Joint with Synthetic Substitute, Uncemented, Open Approach (ICD-10-PCS; CPT 27447; principal; 2020-10-28 10:00)
DX: M17.32 Unilateral post-traumatic osteoarthritis, left knee (principal); F39 Unspecified mood [affective] disorder; E78.5 Hyperlipidemia, unspecified; Z20.822 Contact with and (suspected) exposure to COVID-19; Z87.891 Personal history of nicotine dependence; Z79.82 Long term (current) use of aspirin; Z79.899 Other long term (current) drug therapy
CPT/HCPCS: 36415; 73560; 80048; 85025; 86850; 86900; 86901; 87635; 87640; 87641; 88305; 88311; 97110; 97116; 97162; C1776; J0690; J1100; J1170; J2250

== ENCOUNTER 2020-10-29 13:37 | Outpatient (REF) | payer OTHER, SELFPAY ==
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
== END 2020-10-29 13:38 | disposition home or self-care (01) ==
LOC: HO.HAP 13:37
PROVIDERS: Visit Provider Internal Medicine
DX: Z13.89 Encounter for screening for other disorder (principal)

== ENCOUNTER → 2020-11-13 09:58 | Outpatient (BNVA) | payer OTHER, SELFPAY | PROVIDERS: PCP Internal Medicine; Visit Provider Physician Assistant | DX: Z47.1 Aftercare following joint replacement surgery (principal); Z96.652 Presence of left artificial knee joint | CPT/HCPCS: 99212 ==

== ENCOUNTER → 2020-11-20 13:32 | Outpatient (BNVA) | payer OTHER, SELFPAY | PROVIDERS: PCP Internal Medicine; Visit Provider Orthopaedic Surgery | DX: Z47.1 Aftercare following joint replacement surgery (principal); Z96.652 Presence of left artificial knee joint | CPT/HCPCS: 99212 ==

== ENCOUNTER 2020-11-24 12:58 | Outpatient (REF) | payer OTHER, SELFPAY | END 2020-11-24 12:59 | disposition home or self-care (01) | LOC: HO.HAP 12:58 | PROVIDERS: Visit Provider Allergy & Immunology Allergy | DX: Z13.89 Encounter for screening for other disorder (principal) ==

== ENCOUNTER → 2020-12-11 13:29 | Outpatient (BNVA) | payer OTHER, SELFPAY | PROVIDERS: Visit Provider Orthopaedic Surgery | DX: Z47.1 Aftercare following joint replacement surgery (principal); Z96.652 Presence of left artificial knee joint | CPT/HCPCS: 99212 ==

== ENCOUNTER 2021-01-21 11:00 | Outpatient (RCR) | payer OTHER, SELFPAY ==
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
--- NOTE | 2021-02-04 08:01 | MHC.PT.DC ---
[facility] [place] Office [place] Office [place] Office [address] Florencio Shipman [address] [phone] F: [phone] F: [phone] F: [phone] F: [phone] Physical Therapy Discharge Report Diagnosis: S/P L TKA 10/28/20 Date of Surgery: 10/28/20 Date of Evaluation: 11/19/20 Date of Discharge: 02/04/21 Treatments to Date: 25 Cancellations to Date: No Shows to Date: Discharge Status: Achieved Goals Improved Function Independent with HEP Discharge Summary: HAS MET PT GOALS. TO SEE ORTHO TOMORROW (WILL EITHER FINISH UP WITH LAST SESSIONS VS DC...DC Electronically signed by: CRISTIANO MARTINEZ PT Please sign and return to therapist. Thank you for your referral.
== END 2021-02-04 08:02 | disposition home or self-care (01) ==
LOC: HO.PTWFD 11:00
PROVIDERS: Visit Provider Physician Assistant
DX: Z96.652 Presence of left artificial knee joint (principal)
CPT/HCPCS: 97014; 97110; 97140; 97163; 97530; 97535

== ENCOUNTER → 2021-01-22 12:22 | Outpatient (BNVA) | payer OTHER, SELFPAY | PROVIDERS: Visit Provider Orthopaedic Surgery | DX: Z47.1 Aftercare following joint replacement surgery (principal); Z96.652 Presence of left artificial knee joint | CPT/HCPCS: 99212 ==

== ENCOUNTER 2021-05-07 12:23 | Outpatient (REF) | payer SELFPAY | END 2021-05-07 12:24 | disposition home or self-care (01) | LOC: HO.HAP 12:23 | PROVIDERS: PCP Internal Medicine; Visit Provider Internal Medicine | DX: Z01.118 Encounter for examination of ears and hearing with other abnormal findings (principal); H90.3 Sensorineural hearing loss, bilateral | CPT/HCPCS: 92700 ==

== ENCOUNTER 2021-11-06 09:28 | Outpatient (REF) | payer SELFPAY ==
--- NOTE | ~2021-11-06 | XR_ITS ---
EXAMINATION: XR KNEE, LEFT XR KNEE AP STANDING CLINICAL INFORMATION: Pain. COMPARISON: Prior radiographs, most recently 10/28/2020. TECHNIQUE: Four views of the left knee. AP bilateral standing view of the knees was obtained. FINDINGS: Prosthetic components of the left total knee arthroplasty are appropriately aligned, without periprosthetic fracture or abnormal lucency. No component migration. No joint effusion. There is moderate asymmetric narrowing of the medial joint space compartment of the right knee, and the lateral joint space compartment is well-maintained. There is a secondary mild varus configuration. The right knee shows chondrocalcinosis. XR/XR knee standing BI IMPRESSION: 1. Appropriate alignment of the left total knee arthroplasty without evidence of complications. 2. There is moderate asymmetric narrowing of the medial joint space compartment of the right knee. There is a mild right paracentral configuration. 3. There is right knee chondrocalcinosis, which can be associated with CPPD.
--- NOTE | ~2021-11-06 | XR_ITS ---
EXAMINATION: XR KNEE, LEFT XR KNEE AP STANDING CLINICAL INFORMATION: Pain. COMPARISON: Prior radiographs, most recently 10/28/2020. TECHNIQUE: Four views of the left knee. AP bilateral standing view of the knees was obtained. FINDINGS: Prosthetic components of the left total knee arthroplasty are appropriately aligned, without periprosthetic fracture or abnormal lucency. No component migration. No joint effusion. There is moderate asymmetric narrowing of the medial joint space compartment of the right knee, and the lateral joint space compartment is well-maintained. There is a secondary mild varus configuration. The right knee shows chondrocalcinosis. XR/XR knee LT 2V IMPRESSION: 1. Appropriate alignment of the left total knee arthroplasty without evidence of complications. 2. There is moderate asymmetric narrowing of the medial joint space compartment of the right knee. There is a mild right paracentral configuration. 3. There is right knee chondrocalcinosis, which can be associated with CPPD.
== END 2021-11-06 09:29 | disposition home or self-care (01) ==
LOC: HO.HOSX 09:28
PROVIDERS: Visit Provider Orthopaedic Surgery
DX: M25.561 Pain in right knee (principal); Z96.652 Presence of left artificial knee joint
CPT/HCPCS: 73560; 73565; 99212

== ENCOUNTER 2022-06-03 12:11 | Outpatient (REF) | payer OTHER, SELFPAY ==
--- NOTE | ~2022-06-03 | XR_ITS ---
EXAMINATION: XR SHOULDER, LEFT CLINICAL INFORMATION: Pain COMPARISON: None TECHNIQUE: AP external rotation, Grashey, scapular Y, and axillary views of the left shoulder. FINDINGS: The bones and soft tissues are normal. No fracture. Glenohumeral and acromioclavicular alignment is anatomic with mild loss of left AC joint space. No abnormal soft tissue calcifications. XR/XR shoulder LT min 2V IMPRESSION: Mild degenerative changes left AC joint. No visible acute fracture or dislocation seen. Rest of the left shoulder appears unremarkable
== END 2022-06-03 12:12 | disposition home or self-care (01) ==
LOC: HO.HOSX 12:11
PROVIDERS: Visit Provider Orthopaedic Surgery
DX: M25.512 Pain in left shoulder (principal); M75.42 Impingement syndrome of left shoulder
CPT/HCPCS: 20610; 73030; 99212; J1100

== ENCOUNTER 2022-07-13 08:00 | Outpatient (RCR) | payer OTHER, SELFPAY ==
--- NOTE | 2022-07-13 08:12 | MHC.PT.OD ---
[facility] [place] Office [place] Office [place] Office [address] Florencio Shipman [address] [phone] F: [phone] F: [phone] F: [phone] F: [phone] Physical Therapy Daily Note Diagnosis: PT eval and treat: Impingement syndrome of left shoulder- M75.[address] Alejandro 06/03/22 Date of Surgery: Date of Evaluation: 06/08/22 Date of Treatment: 07/05/22 Treatments to Date: Cancellations to Date: No Shows to Date: Authorized Visits: 7 Insurance End Date: Precautions/ Contraindications:history of TBI, anxiety, history of falls fall onto L shoulder 6 months ago history of L TKA Subjective: I cant reach behind my back or beyond neutral. Its really bothering me. Pain Score and Location: 6 Objective Flowsheet: Tests & Measures AROM flexion 130, (140) AROM IR T12 AROM ER T1 Abduction 130 Exercises SCI-fit bike seat #8 airex pad under feet for posterior revolutions UE exercise x 8 minutes cues for postural support. AAROM shoulder flexion x 2 sets 5R, AAROM shoulder scaption x 2 sets 5R, iso scap squeeze x 10R, rows x 2 sets 10R RTB reviewed quadriped UE lower trap raises and middle trap raises x 2 sets 10R with core tight kneeling on mat, neutral core. Phone call placed to [facility] spoke with Chaparro to establish assist and establish intake for patient as patient verbalizes desire to seek emotional support. Sensation intact. Three piece rocktape I strip for L anterior/medial/posterior shoulder stability taping with education re: application/removal/indications for use. Fourth tape piece used to provide scapular stability. self care, icing shoulder, pillow/positional support changes for posture/bed mobility HEP sheet AAROM flexion with hand vs cane supine, isometricc scap retraction, seated rows with YTB to neutral, Modalities Ice to L shoulder seated x 10 minutes post session with pillow under arm Assessment: 07/05/22 Pt to see [facility] ortho for a follow up on 07/15/22 at 8:45 am. Pt has demonstrated some improvements in sx/ROM/pain since start of care, however due to plateauing status patient would benefit from a follow up to rule out need for further imaging due to hx trauma. Pt continues to exhibit TTP posterior RTC insertion and reports pain with ER/ABD/IR. (He reports this is the area he had direct trauma to when he fell and landed on L shoulder a few months ago). Pt continues to attend the gym several times weekly and has been advised to refrain from tasks which cause him pain. He has been encouraged to ice his shoulder prn for sx relief. 06/24/22: Pt has attended five se ssions of PT to date demonstrating improvements in AROM/AAROM and periscap strength. Pt would benefit from continued skilled PT services at a frequency of 2x/week to address impairments, implement HEP, and restore functional mobility and advance to meeting STG/LTG. 06/21/22 Improving ROM and mobility of the L shoulder. 06/24/22: Pt more sore today, reports reaching behind his back irritated sx. We reviewed body mechanics and ways to reduce sx along with icing. Pt has been improving motion of the L shoulder since start of care. Pt's sx are present along posterior L RTC insertion. Recommending patient continue 2xweek for two weeks to meet listed goals. 06/17/22: Pt demonstrates improvement in L shoulder motion since start of care. Pt reports he has been exercising in the gym setting- we reviewed specific gym equipment he has been using. I encouraged him to refrain from lifting objects overhead and continue use of icing prn for sx. He was issued a written HEP program today and given horizontal abduction, resisted flexion, and ER pullout in supine with YTB for home. 06/10/22: Positive response from trial of ROCKTAPE for postural support. Educated re: goals of treatment, findings, removal, indications for use. Pt is an ambidextrous 51 y/o male, referred to PT from Dr. Alejandro for treatment of L shoulder pain following history of fall down the stairs (landed on L shoulder) which occurred about six months ago. Pt exhibits decreased AROM of the L shoulder, impaired strength/lifting tolerance for the L UE, impaired sleeping tolerance, and TTP over posterior/lateral L RTC insertion GH joint of the L shoulder. Pt would benefit from attending skilled PT services at a frequency of 2x/week x 4 weeks to address impairments, implement HEP, and restore functional mobility tolerance to maximize safety. 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 Pt PMH significant for TBI, anxiety, bipolar disorder, L TKA 10/2020. Pt exhibits altered gait pattern due to neurological impact due to history of TBI. Pt was initiated in AAROM of the L shoulder and encouraged to trial icing in effort to ease sx. Pt has had PT at this office in the past and has a history of excellent compliance. PT Plan: one visit- reassessment next session then to [facility] ortho 07/15/22 at 8:45 am. Short Term Goals: 1. Pt will demonstrate AAROM flexion 160 degrees. 2. Strength L scapular extensors 5/5. 3. Strength ER 5/5 on the L. 4. Pt will demonstrate self care and good safety insight on the L shoulder. Intermediate Goals: 1. Strength AAROM ER 5/5. 2. Pt will lift a gallon of milk with use of his left upper extremity. 3. Pt will resume sleeping on L side 50% of the evening. 4. Pt will ambulate 500ft with use of quad cane in L UE with good dynamic balance and pain <3/10. 5. Pt will demonstrate good HEP. Electronically signed by: Chantal Griffin, PT, DPT
== END 2023-05-03 12:09 | disposition home or self-care (01) ==
LOC: HO.PTWFD 08:00
PROVIDERS: PCP Radiology Diagnostic Radiology; Visit Provider Orthopaedic Surgery
DX: M75.42 Impingement syndrome of left shoulder (principal)
CPT/HCPCS: 97110; 97140; 97163; 97535

== ENCOUNTER → 2022-07-15 08:32 | Outpatient (BNVA) | payer OTHER, SELFPAY | PROVIDERS: PCP Radiology Diagnostic Radiology; Visit Provider Orthopaedic Surgery | DX: M75.42 Impingement syndrome of left shoulder (principal); M24.812 Other specific joint derangements of left shoulder, not elsewhere classified | CPT/HCPCS: 99212 ==

== ENCOUNTER 2022-09-01 10:00 | Outpatient (REF) | payer OTHER, SELFPAY ==
--- NOTE | ~2022-09-01 | MR_ITS ---
EXAMINATION: MRI LEFT SHOULDER WITHOUT CONTRAST CLINICAL INFORMATION: Left shoulder pain COMPARISON: Radiographs 06/03/2022 TECHNIQUE: MRI of the shoulder without contrast is performed on a 1.5 Anjana high-field scanner. FINDINGS: ROTATOR CUFF: Moderate infraspinatus tendinopathy. Mild undersurface fraying at the anterior leading edge of the supraspinatus tendon insertion. Small ill-defined undersurface partial tear of the subscapularis tendon insertion. No full-thickness tendon tear. No muscle atrophy or fatty infiltration. BICEPS: Normal. CORACOACROMIAL ARCH: The undersurface of the acromion is curved with no subacromial spur. Mild to moderate acromioclavicular osteoarthritis. LABRUM/CAPSULE: Evidence of a small undersurface tear of the posterior labrum at the 9:00 position with a 4 mm paralabral cyst. Probable small undersurface partial tear of the inferior labrum at the 5:00-6:00 position demonstrated on coronal images 10-11. GLENOHUMERAL JOINT/MARROW: Trace glenohumeral joint effusion. Small subchondral cyst of the posterior glenoid rim. ADDITIONAL FINDINGS: None. MR/MR shoulder LT wo con IMPRESSION: 1. Moderate infraspinatus tendinopathy. Mild undersurface fraying at the anterior leading edge of the supraspinatus tendon insertion. 2. Small ill-defined undersurface partial tear of the subscapularis tendon insertion. 3. Mild to moderate acromioclavicular osteoarthritis. 4. Small undersurface tears of the posterior and inferior labrum. Trace glenohumeral joint effusion.
== END 2022-09-01 10:01 | disposition home or self-care (01) ==
LOC: HO.MRI 10:00
PROVIDERS: PCP Nurse Practitioner Family; Visit Provider Orthopaedic Surgery
DX: M75.42 Impingement syndrome of left shoulder (principal)
CPT/HCPCS: 73221

== ENCOUNTER → 2022-09-24 11:41 | Outpatient (BNVA) | payer OTHER, SELFPAY | PROVIDERS: PCP Nurse Practitioner Family; Visit Provider Orthopaedic Surgery | DX: M24.812 Other specific joint derangements of left shoulder, not elsewhere classified (principal); M75.42 Impingement syndrome of left shoulder | CPT/HCPCS: 99212 ==

== ENCOUNTER → 2022-10-08 08:48 | Outpatient (BNVA) | payer OTHER, SELFPAY | PROVIDERS: Visit Provider Orthopaedic Surgery | DX: M65.331 Trigger finger, right middle finger (principal) | CPT/HCPCS: 99202 ==

== ENCOUNTER 2022-10-25 09:05 | Day surgery (SDC) | payer OTHER, SELFPAY ==
[2022-10-25 11:08] VITALS: BMI 21.1
[2022-10-25 11:23] VITALS: BP 112/75; PULSE 95; RESP 18; TEMP 36.2; O2SAT 99
--- NOTE | 2022-10-25 12:32 | W.PM.OPN ---
Operative Note Operative Note Date of Service: 10/25/22 Narrative: Operative Note Preop diagnosis: 1. right middle finger Trigger finger Postop diagnosis: 1. right middle finger Trigger finger Procedure: 1. right middle finger A1 jacqui release Surgeon: Dionne Dobbs MD Anesthesia: local block using 1% lidocaine with epinephrine Findings: No locking or catching after A1 jacqui release EBL: Less than 5 mL Tourniquet time: None Specimens: None Complications: None Disposition: Brought to recovery room in stable condition Plan: Follow-up for 10-14 days for wound check and suture removal Indications: The patient is 52 years old, with a right middle finger trigger finger that has been unresponsive to nonoperative management. The risks and benefits of operative treatment including but not limited to risk of damage to blood vessels, nerves, tendons, infection, persistent pain, persistent symptoms, recurrence or possible need for additional surgery were discussed with the patient and the patient wishes to proceed with surgery. Procedure: Once consent was obtained a local block was performed in the preop area using a combination of 1% lidocaine with epinephrine. The patient was then brought back to the operating suite and placed on the operative table in supine position. The right upper extremity was prepped and draped in a standard surgical fashion. Once assured that we had a good block, a 1.5 cm oblique incision was made centered over the A1 jacqui of the right middle finger . The incision was made through the skin to the subcutaneous tissues using a #15 blade. Careful dissection was made down to the level of the A1 jacqui using tenotomy scissors, with care being taken to protect the nearby neurovascular structures. A longitudinal incision was made in the A1 jacqui 1st using a #15 blade, then using tenotomy scissors under direct visualization. The A1 jacqui was noted to be thickened. Following our A1 jacqui release, we no longer saw any locking or catching of the digit with flexion and extension. Once satisfied with our A1 jacqui release the wound was copiously irrigated with normal saline and hemostasis was obtained with a brief period of local pressure. The skin edges were reapproximated with some 5.0 nylon suture material and a sterile dressing was applied. The patient appears to have tolerated the procedure well and with no complications. All digits were well vascularized at the conclusion of the case.
[2022-10-25 13:15] VITALS: BP 125/65; PULSE 65; RESP 16; TEMP 36.2; O2SAT 98
== END 2022-10-25 13:58 | disposition home or self-care (01) ==
PROVIDERS: PCP Nurse Practitioner Family; Visit Provider Orthopaedic Surgery
PROC: (CPT 26055; principal; 2022-10-25 11:00)
DX: M65.331 Trigger finger, right middle finger (principal)
CPT/HCPCS: 26055; J0171

== ENCOUNTER → 2022-10-25 09:05 | Outpatient (BNV) | payer OTHER, SELFPAY | PROVIDERS: PCP Nurse Practitioner Family; Visit Provider Orthopaedic Surgery | DX: M65.331 Trigger finger, right middle finger (principal) | CPT/HCPCS: 26055 ==

== ENCOUNTER 2022-11-08 13:01 | Outpatient (AMB) | payer OTHER, SELFPAY ==
--- NOTE | 2022-11-08 13:13 | MHC.OFFVIS ---
Intake Vital Signs 11/08/22 13:19 Height 5 ft 9 in Weight 142 lb BMI 21.0 Handedness Ambidextrous Intake Visit Reasons: PO RT MF trigger 10/25/22 AR Intake Note: Cristobal is a 52 year old ambidextrous hand dominant male who presents today for his post op appointment s/p right MF trigger 10/25/22 AR. Patient reports having some soreness to the touch. He states that his middle finger feels better after surgery. Allergies No Known Allergies [No Known Allergies*] Allergy (Verified 11/08/22 13:16) HPI PO RT MF trigger 10/25/22 AR HPI Details Patient presents to the office today status post right middle finger trigger finger release with Dr. Dobbs on 10/25/2022. He reports that his symptoms have completely resolved and is not experiencing any locking or catching. Denies any pain. Denies any redness or drainage. [facility] Medical History ADHD, adult residual type Anxiety Bipolar 1 disorder Elevated cholesterol Graves disease Impingement syndrome, shoulder, left Patellar disorder Post-traumatic osteoarthritis of left knee Traumatic brain injury Surgical History H/O vasectomy History of left knee surgery History of right knee surgery Hx of surgical procedure Family History Father CVD (cardiovascular disease) Mother Hypertension Son No problems noted. 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 No surrounding erythema or drainage. No signs of infection. Able to perform full extension and flexion. No active locking. NVI. Assessment & Plan Assessment & Plan (1) Trigger finger, right middle finger: Code(s): M65.331 - Trigger finger, right middle finger Plan: Patient presents to the office today status post right middle finger trigger finger release with Dr. Dobbs on 10/25/2022. He reports that his symptoms have completely resolved and is not experiencing any locking or catching. Denies any pain. Denies any redness or drainage. Sutures removed in the office today Steri-Strips applied. Patient is able to demonstrate full hand range of motion so therefore occupational therapy was deferred at this time. He will follow-up p.r.n. sooner if needed. Coding Level of Care Code Global (20611) Diagnoses Trigger finger, right middle finger M65.331
[2022-11-08 13:19] VITALS: BMI 21.0
== END 2022-11-08 13:28 | disposition home or self-care (01) ==
PROVIDERS: PCP Nurse Practitioner Family; Visit Provider Physician Assistant
DX: M65.331 Trigger finger, right middle finger (principal)
CPT/HCPCS: 99024

== ENCOUNTER → 2022-11-08 13:01 | Outpatient (BNVA) | payer OTHER, SELFPAY | PROVIDERS: PCP Nurse Practitioner Family; Visit Provider Physician Assistant ==

== ENCOUNTER 2022-12-22 08:57 | Outpatient (AMB) | payer OTHER, SELFPAY ==
[2022-12-22 09:38] VITALS: BMI 21.0
--- NOTE | 2022-12-22 09:38 | A.OFFVIS_ITS ---
Intake Vital Signs 12/22/22 09:38 Height 5 ft 9 in Weight 142 lb BMI 21.0 Intake Visit Reasons: FC- Rt ring finger cortical fx Intake Note: Cristobal 52 yr old male who is ambidextrous, presents today for a new problem for his right ring form DOI approx Dec 01 while he was moving. States he injured his finger but isnt sure how it occurred. He is S/P RT MF trigger 10/25/22 AR. Currently states he has pain at his DIP in ring finger. Seen at [facility] where a fracture was confirm. States he has pa in when bending and also has a sharp pain at his MCP of MF and RF. Allergies No Known Allergies [No Known Allergies*] Allergy (Verified 12/22/22 09:45) HPI FC- Rt ring finger cortical fx HPI Details Cristobal is a 52 year old ambidextrous man who presents with complaints of right ring finger pain. He says he injured his ring finger on 12/01/22 while moving, and was told by an outside hospital that he had a fracture. He complains of pain primarily in his ring finger with bending activities as well as a sharp pain in the MCP joint of his ring & middle fingers. He complains of some swelling in his ring finger which he was concerned about. He says he has been taping his finger when performing daily activities, but when at rest he works on finger ROM. He has a hx of a right middle trigger finger release, DOS: 10/25/22, and he no longer has any locking or catching. He complains of swelling in his middle finger and continues to have some pain when using it. He also says he occasionally sees a bubble in his finger when using it. [facility] Medical History ADHD, adult residual type Anxiety Bipolar 1 disorder Elevated cholesterol Graves disease Impingement syndrome, shoulder, left Patellar disorder Post-traumatic osteoarthritis of left knee Traumatic brain injury Surgical History H/O vasectomy History of left knee surgery History of right knee surgery Hx of surgical procedure Family History Father CVD (cardiovascular disease) Mother Hypertension Son No problems noted. 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 Review of Systems Const All systems reviewed & are unremarkable except as noted in HPI and below Physical Exam Vital Signs: BMI result Body Mass Index 21.0 Const General: no acute distress and alert Orientation/consciousness: patient oriented x3 Neuro General: patient oriented x3 Extrem Other: Evaluation of Right Upper Extremity: The patient is alert, oriented, and in no acute distress Neuro: Median, Ulnar, Radial nerves motor and sensory intact and sensation is normal to the tips of all digits Vascular: Cap refill brisk ROM: He can make a fist and extend all his digits Mild tenderness and swelling over the ring finger distal phalanx No nail deformity No rotational or angular mal-alignment At the middle finger a1 jacqui surgical site, the incision is well-healed He has a scar there which is mildly tender Good active ROM with no locking or catching Radiographs: 3 views of the right hand, with attention to the ring finger, were taken and viewed by me today in clinic. They show a distal phalanx body fracture, transverse at the metaphyseal-diaphyseal junction with some evidence of interval bony healing. 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 Psych Appearance: grossly normal Affect: normal affect Attitude: cooperative Office Procedures Fracture Care Details: Fracture care [id number] Fracture Billing Code: Fracture Billing Code Assessment & Plan Assessment & Plan (1) Fracture of distal phalanx of right ring finger: Code(s): S62.634A - Displaced fracture of distal phalanx of right ring finger, initial encounter for closed fracture (2) Trigger finger, right middle finger: Code(s): M65.331 - Trigger finger, right middle finger Plan Assessment & Plan: 1. Right ring finger distal phalanx body fracture, transverse & non-displaced At the metaphyseal-diaphyseal junction DOI: 12/01/22 I educated him about this condition I discussed operative and non-operative treatment options I recommend we manage this conservatively I discussed activity modification, he is to limit or avoid any heavy lifting activities for the next few weeks He should continue to tape or splint his finger with daily activities or out of the house, but should remove this when at rest He will continue to use his hands for daily activities and work on finger ROM He will follow up in 4 weeks with a PA. No X-rays unless he has increased pain. He can cancel this appointment if he is feeling well 2. Right middle finger trigger finger, S/P release DOS: 10/25/22 He complains of some soreness & swelling in his finger, worse with activity I explained that this is likely still from healing and I encouraged him to continue to use his hand for daily activities No acute intervention warranted Scribed for Dionne Dobbs MD by Sgeundo Pacheco, medical assisting instructor, on 12/22/22 at 10:10 AM, EST. Orders: Orders XR hand RT min 3V Today M79.641 - Pain in right hand Coding Level of Care Code Est Pt Level 3 (86488) Diagnoses Fracture of distal phalanx of right ring finger S62.634A Trigger finger, right middle finger M65.331 CPT Codes Fracture Care - Fracture Billing Code: Fracture Billing Code ([id number])
== END 2022-12-22 10:02 | disposition home or self-care (01) ==
PROVIDERS: PCP Nurse Practitioner Family; Visit Provider Orthopaedic Surgery
DX: S62.664A Nondisplaced fracture of distal phalanx of right ring finger, initial encounter for closed fracture (principal)
CPT/HCPCS: 99213

== ENCOUNTER 2022-12-22 11:28 | Outpatient (REF) | payer OTHER, SELFPAY ==
--- NOTE | ~2022-12-22 | XR_ITS ---
EXAMINATION: XR HAND, RIGHT CLINICAL INFORMATION: Pain in the right hand. COMPARISON: None available. TECHNIQUE: PA, lateral, and oblique views of the right hand. FINDINGS: There is a well-corticated ossific fragment distal to the ulna which has the appearance of an ununited ulnar styloid fracture. Otherwise, the bones and soft tissues are normal. Alignment is anatomic. Joint spaces are maintained. No erosions or soft tissue calcifications. XR/XR hand RT min 3V IMPRESSION: 1. No acute abnormality. 2. Old ununited ulnar styloid fracture.
== END 2022-12-22 11:29 | disposition home or self-care (01) ==
LOC: HO.HOSX 11:28
PROVIDERS: Visit Provider Orthopaedic Surgery
DX: S62.634A Displaced fracture of distal phalanx of right ring finger, initial encounter for closed fracture (principal)
CPT/HCPCS: 73130; 99212

== ENCOUNTER 2023-10-14 09:10 | Outpatient (REF) | payer OTHER, SELFPAY | END 2023-10-14 09:11 | disposition home or self-care (01) | LOC: HO.HOSX 09:10 | PROVIDERS: Visit Provider Orthopaedic Surgery | DX: Z13.89 Encounter for screening for other disorder (principal) ==

== ENCOUNTER 2023-11-10 13:58 | Outpatient (AMB) | payer OTHER, SELFPAY ==
--- NOTE | 2023-11-10 14:12 | A.OFFVIS_ITS ---
Intake Visit Reasons: Newprob-right knee pain/possible fluid Intake Note: Cristobal is a 53 year old male who presents today for a new problem visit with complaints of right knee pain. Patient reports that the right knee has bothered him since 1987, he reports that he took a fall about 1 month ago which has caused increased pain. He has an accumulation of fluid at the knee and he is hoping the have it drained. He have continued pain on the right knee but the left is doing great. Allergies No Known Allergies [No Known Allergies*] Allergy (Verified 12/22/22 09:45) HPI HPI Newprob-right knee pain/possible fluid: Details: Cristobal is a 53 year old male who presents today for a new problem visit with complaints of right knee pain. Patient reports that the right knee has bothered him since 1987, he reports that he took a fall about 1 month ago which has caused increased pain. He has an accumulation of fluid at the knee and he is hoping the have it drained. He have continued pain on the right knee but the left is doing great. [facility] Medical History (Updated 11/11/23 @ 09:11 by Valentín Alejandro MD) Traumatic brain injury Impingement syndrome, shoulder, left Anxiety Elevated cholesterol ADHD, adult residual type Bipolar 1 disorder Patellar disorder Post-traumatic osteoarthritis of left knee Graves disease Surgical History History of right knee surgery Hx of surgical procedure History of left knee surgery H/O vasectomy Family History Father CVD (cardiovascular disease) Mother Hypertension Son No problems noted. 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 He understands this (2) Arthritis of right knee: Code(s): M17.11 - Unilateral primary osteoarthritis, right knee Category: Medical Plan: Right knee OA. Pain and exam are unimpressive. He is curious about draining. There is nothing to drain. Can return if pain or swelling worsen. Coding Level of Care Code Est Pt Level 3 (16254) Diagnoses Traumatic brain injury S06.9X9A Arthritis of right knee M17.11
== END 2023-11-10 14:32 | disposition home or self-care (01) ==
PROVIDERS: PCP Nurse Practitioner Family; Visit Provider Orthopaedic Surgery
DX: M17.11 Unilateral primary osteoarthritis, right knee (principal); S06.9X9A Unspecified intracranial injury with loss of consciousness of unspecified duration, initial encounter
CPT/HCPCS: 99213

== ENCOUNTER → 2023-11-10 13:58 | Outpatient (BNVA) | payer OTHER, SELFPAY | PROVIDERS: PCP Nurse Practitioner Family; Visit Provider Orthopaedic Surgery | DX: S06.9X9A Unspecified intracranial injury with loss of consciousness of unspecified duration, initial encounter (principal); M17.11 Unilateral primary osteoarthritis, right knee | CPT/HCPCS: 99212 ==

== ENCOUNTER 2024-03-16 07:51 | Outpatient (AMB) | payer OTHER, SELFPAY ==
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
[2024-03-16 08:10] VITALS: BMI 21.9
== END 2024-03-16 08:29 | disposition home or self-care (01) ==
PROVIDERS: PCP Nurse Practitioner Family
DX: M25.641 Stiffness of right hand, not elsewhere classified (principal); M25.642 Stiffness of left hand, not elsewhere classified; R20.0 Anesthesia of skin; R20.2 Paresthesia of skin
CPT/HCPCS: 99213

== ENCOUNTER 2024-03-16 09:01 | Outpatient (REF) | payer OTHER, SELFPAY | END 2024-03-16 09:02 | disposition home or self-care (01) | LOC: HO.HOSX 09:01 | DX: M79.642 Pain in left hand (principal); M79.641 Pain in right hand; M25.641 Stiffness of right hand, not elsewhere classified; M25.642 Stiffness of left hand, not elsewhere classified; R20.0 Anesthesia of skin; R20.2 Paresthesia of skin | CPT/HCPCS: 73130; 99212 ==

== ENCOUNTER 2024-04-13 09:09 | Outpatient (AMB) | payer OTHER, SELFPAY ==
[2024-04-13 09:12] VITALS: BMI 21.9
--- NOTE | 2024-04-13 09:12 | A.OFFVIS_ITS ---
Vital Signs 04/13/24 09:12 Height 5 ft 9 in Weight 148 lb BMI 21.9 Intake Visit Reasons: OV-behind right knee pain/possible fluid Intake Note: Cristobal is a 53 year old male who presents today for a follow up of his right knee OA. Patient reports that he continues to have pain and swelling in the posterior aspect of the right knee. Patient reports that the right knee has bothered him since 1987. He has clicking of the knee with walking. Allergies No Known Allergies [No Known Allergies*] Allergy (Verified 04/13/24 09:14) HPI HPI OV-behind right knee pain/possible fluid: Details: Cristobal has right knee osteoarthritis. He has been having moderate pain occasionally and wanted to come in for a visit. He feels his knee is a little unstable and there is some swelling posterolaterally. [facility] Medical History (Updated 03/16/24 @ 09:16 by VICKI Olivares) Traumatic brain injury Impingement syndrome, shoulder, left Anxiety Elevated cholesterol ADHD, adult residual type Bipolar 1 disorder Patellar disorder Post-traumatic osteoarthritis of left knee Graves disease Surgical History History of right knee surgery Hx of surgical procedure History of left knee surgery H/O vasectomy Family History Father CVD (cardiovascular disease) Mother Hypertension Son No problems noted. 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 Office Procedures Joint Inj/Aspir; Non-Pain Clin Joint Injection/Drain Details: Injected 1 mL of Decadron and 3 mL 1% lidocaine and 3 mL of 0.25% Marcaine. Site was prepped using aseptic technique. Patient tolerated the procedure well. Shoulders, Hips, Knees, Knee Large Joint Injection : Right Knee Coding Procedure code (CPT) selection complete Assessment & Plan Assessment & Plan (1) Arthritis of right knee: Code(s): M17.11 - Unilateral primary osteoarthritis, right knee Category: Medical Plan: 53-year-old gentleman with right knee osteoarthritis. We did a left knee replacement many years ago and he has been doing well. His right knee continues to swell but he is able to engage in daily activities without severe discomfort. I injected his right knee. He can follow up in 6 months if he would like but no additional intervention warranted at this time. Coding Level of Care Code Est Pt Level 3 (87529) Diagnoses Arthritis of right knee M17.11 CPT Codes Shoulders, Hips, Knees, - Knee Large Joint Injection : Right Knee ([id number])
== END 2024-04-13 09:52 | disposition home or self-care (01) ==
PROVIDERS: PCP Nurse Practitioner Family; Visit Provider Orthopaedic Surgery
DX: M17.11 Unilateral primary osteoarthritis, right knee (principal)
CPT/HCPCS: 20610; 99213

== ENCOUNTER → 2024-04-13 09:09 | Outpatient (BNVA) | payer OTHER, SELFPAY | PROVIDERS: PCP Nurse Practitioner Family; Visit Provider Orthopaedic Surgery | DX: M17.11 Unilateral primary osteoarthritis, right knee (principal) | CPT/HCPCS: 20610; 99212; J0665; J1100; J2003 ==

== ENCOUNTER 2024-04-25 08:03 | Outpatient (REF) | payer OTHER, SELFPAY ==
--- NOTE | 2024-04-25 08:07 | EMG_ITS ---
Chief complaint: Bilateral hand numbness and trigger finger, left worse History of TBI, residual right sided weakness. Reason for referral: Evaluate for Carpal Tunnel Syndrome Referred by: Rafael COHEN Procedure done: Upper extremity NCS/EMG Precautions and/or limitations: None The limb temperature was monitored continuously and remained between 32-36 degrees C during the performance of the NCS. Nerve Conduction Studies Anti Sensory Summary Table ?Stim Site NR Onset (ms) Norm Onset (ms) Peak (ms) Norm Peak (ms) O-P Amp (?V) Norm O-P Amp Site1 Site2 Delta-0 (ms) Dist (cm) Conner (m/s) Norm Conner (m/s) Left Median Anti Sensory (2nd Digit) Wrist ? 2.8 3.6 <3.6 20.2 >10 Wrist 2nd Digit 2.8 14.0 50 Right Median Anti Sensory (2nd Digit) Wrist ? 2.8 3.4 <3.6 17.2 >10 Wrist 2nd Digit 2.8 14.0 50 Left Ulnar Anti Sensory (5th Digit) Wrist ? 0.9 3.0 <3.7 12.7 >15.0 Wrist 5th Digit 0.9 14.0 156 Right Ulnar Anti Sensory (5th Digit) Wrist ? 2.4 3.2 <3.7 26.1 >15.0 Wrist 5th Digit 2.4 14.0 58 Motor Summary Table ?Stim Site NR Onset (ms) Norm Onset (ms) O-P Amp (mV) Norm O-P Amp iAmp (mV) Amp (1st) (%) Site1 Site2 Delta-0 (ms) Dist (cm) Conner (m/s) Norm Conner (m/s) Left Median Motor (Abd Poll Brev) Wrist ? 3.8 <3.9 11.6 >4.5 14.6 100.0 Elbow Wrist 4.2 21.0 50 >45 Elbow ? 8.0 10.8 13.6 93.1 Right Median Motor (Abd Poll Brev) Wrist ? 3.5 <3.9 9.6 >4.5 11.2 100.0 Elbow Wrist 3.8 20.5 54 >45 Elbow ? 7.3 10.8 12.5 112.5 Left Ulnar Motor (Abd Dig Minimi) Wrist ? 2.7 <3.0 5.1 >5 6.3 100.0 B Elbow Wrist 3.2 19.0 59 >45 B Elbow ? 5.9 5.3 6.5 103.9 A Elbow B Elbow 2.2 10.0 45 >45 A Elbow ? 8.1 4.8 6.0 94.1 Right Ulnar Motor (Abd Dig Minimi) Wrist ? 2.8 <3.0 7.3 >5 10.0 100.0 B Elbow Wrist 3.5 20.0 57 >45 B Elbow ? 6.3 7.0 9.8 95.9 A Elbow B Elbow 1.3 10.0 77 >45 A Elbow ? 7.6 5.7 8.5 78.1 Comparison Summary Table ?Stim Site NR Peak (ms) Norm Peak (ms) P-T Amp (?V) Site1 Site2 Delta-P (ms) Norm Delta (ms) Left Median/Radial Dig I Comparison (Digit 1 - 10cm) Median ? 2.9 <2.9 29.7 Median Radial 0.3 Radial ? 2.6 <2.8 5.7 EMG ?Side Muscle Nerve Root Ins Act Fibs Psw Amp Dur Poly Recrt Int Pat Comment Right 1stDorInt Ulnar C8-T1 Nml Nml Nml Nml Nml 0 Nml Complete Right FlexCarRad Median C6-7 Nml Nml Nml Nml Nml 0 Nml Complete Right Biceps Musculocut C5-6 Nml Nml Nml Nml Nml 0 Nml Complete Right Triceps Radial C6-7-8 Nml Nml Nml Nml Nml 0 Nml Complete Right Deltoid Axillary C5-6 Nml Nml Nml Nml Nml 0 Nml Complete Left 1stDorInt Ulnar C8-T1 Nml Nml Nml Nml Nml 0 Nml Complete Left FlexCarRad Median C6-7 Nml Nml Nml Nml Nml 0 Nml Complete Left Biceps Musculocut C5-6 Nml Nml Nml Nml Nml 0 Nml Complete Left Triceps Radial C6-7-8 Nml Nml Nml Nml Nml 0 Nml Complete Left Deltoid Axillary C5-6 Nml Nml Nml Nml Nml 0 Nml Complete FINDINGS: All motor and sensory nerves tested showed normal latencies, amplitudes and conduction velocities. Concentric needle EMG was performed in selected muscles of the bilateral upper extremities. Study did not reveal signs of electric abnormalities as shown in the table above. IMPRESSION: 1. This is a normal study. 2. There is no electrodiagnostic evidence for median neuropathy, ulnar neuropathy, brachial plexopathy, or cervical radiculopathy. Thank you for your kind referral. Dorothy Heaton MD, RAKESH Board Certified, [place] Board of Physical Medicine and Rehabilitation (ABPMR) Board Certified, [place] Board of Electrodiagnostic Medicine (ABEM) CODIN [phone] MTDD
--- OUTSIDE RECORDS SUMMARY | 2024-04-25 08:07 | XMS_ITS | Encounter Summary ---
Author Organization [employer] Address [address] [place] [address] [address] [place] [address] Care Team Providers Care Seal Mixing Operator Name Role Phone Nadira Ospina NP Primary Care Provider [phone] Reason for Referral * Consultation (Routine) - Closed Specialty Diagnoses / Procedures Referred By Contadali t Referred To Contact Physical Therapy Diagnoses Chronic pain syndrome Nadira Ospina NP [address] [place] [address] Phone: tel: fax: [facility] [address] [place] [address] Phone: tel: fax: Referral ID Status Reason Start Date Expiration Date V isits Requested Visits Authorized [id number] Closed Specialty Services Required 04/13/2024 04/13/2025 1 1 Reason for Visit * Reason Onset Date Comments Referral 04/11/2024 Encounter Details Date Type Department Care Team ([facility] st Contact Info) Description 04/11/2024 Telephone [facility] MEDICINE [address] [place] [address] Nadira Ospina NP [address], [place] [phone] Referral Social History Tobacco Use Types Packs/Day Years Used Date Smoking Tobacco: Former Cigarettes Smokeless Tobacco: Never Alcohol Use Standard Drinks/Week Comments Never 0 (1 standard drink = 0.6 oz pur e alcohol) Alcohol Answer Date Recorded Frequency of Alcohol Consumption Not on file 01/31/2024 Average Number of Drinks Not on file 024 Frequency of Binge Drinking Not on file 01/03 Score 0 01/31/2024 Depression Answer Date Recorded Patient Health Questionnaire-9 Score 3 05/09/2023 Patient Health Questionnaire-9 Score 3 05/09/2023 Last PHQ-9: Questionnaire Data Not on file 0 05/09/2023 Housing Stability Answer Date Recorded What is your housing situation today? I have héctor norwood 01/31/[address] you li ve. Do you have problems with any of the following? None of the above 01/31/2024 Food Insecurity Answer Date Recorded Within the past 12 months, y ou worried that your food would run out before you got money to buy more: Never True 01/31/2024 Within the past 12 months,th e food you bought just didn't last and you didn't have enough money to get more: Never True Transportation Answer Date Recorded In the past 12 months, has l ack of transportation kept you from medical appts, meetings, work or from getting things needed for daily living? No 01/31/2024 Utilities Answer Date Recorded In the past 12 months, has t he electric, gas, oil or water company threatened to shut off services in your home? No 01/31/2024 Depression Answer Date Recorded Patient Health Questionnaire-2 Score 0 05/09/2023 Internet Access Answer Date Recorded Internet Access Q1 Yes 01/31/2024 Internet Access Q2 Not on file 01/31/2024 Sex and Gender Information Value Date Recorded Sex Assigned at Male 02/01/2022 10:31 AM EDT Legal Sex Male 10:31 AM EDT Gender Identity Male 02/01/2022 10:31 AM EDT Sexual Orientation Straight 02/01/2022 10 :31 AM EDT documented as of this encounter Miscellaneous Notes * Telephone Encounter - Alicia Atkins RN - 04/13/2024 9:44 AM EST TC placed to pt per PCP message that referral was placed for massage therapy. No answer, LVM to return call to office and ask to speak to the [place] team nurses. * Telephone Encounter - Alicia Atkins RN - 04/11/2024 11:55 AM EST TC to pt to inform a referral was mailed to pt 02/06/24 to contact [place] [phone] for audiology services as [facility] doesn't cover services for hearing. Pt notified of message and states he will call for audiology services. Pt requesting referral for therapeutic massage due to body pain. Pt states he has osteoarthritis, hx of left knee replacement, back discs, and pain in his neck, back, shoulders, and hands. Pt does not have a specific facility he would like the referral to be sent to upon PCP review. Message forwarded to PCP to review and advise. * Telephone Encounter - Jamir Mcarthur - 04/11/2024 8:14 AM EST Tc from pt requesting a new referral for audiology and therapeutic massage for a whole body as pt inform he needs it urgently documented in this encounter Plan of Treatment Scheduled Referrals Name Type Priority Associated Diagnoses Orde r Schedule Referral to Massage Therapy Outpatient Referral Routine Chronic pain syndrome Expected: 04/13/2024 (Approximate), Expires: 04/13/2025 documented as of this encounter Visit Diagnoses Diagnosis Chronic pain syndrome- Primary documented in this encounter Additional Health Concerns Assessment Noted Time PHQ-9 Depression Total Score: 3 05/09/19 10:30 AM EST documented as of this encounter Care Teams Seal Mixing Operator Relationship Specialty Start Date End Date Nadira Ospina NP [address] [place] [address] PCP - General Family Medicine 12/06/23 documented as of this encounter
--- OUTSIDE RECORDS SUMMARY | 2024-04-25 08:07 | XMS_ITS | Encounter Summary ---
Author Organization [employer] Address [address] [facility] [address] [place] [address] Care Team Providers Care Associate Sales Manager Name Role Phone Nadira Ospina NP Primary Care Provider [phone] Reason for Visit * Reason Comments Med Refill Encounter Details Date Type Department Care Team ([facility] st Contact Info) Description 04/18/2024 Refill [facility] MEDICINE [address] [place], [place] [phone] Nadira Ospina NP [address] [place], [place] [phone] Chronic low back pain, unspecified back pain laterality, unspecified whether sciatica present Social History Tobacco Use Types Packs/Day Years [...] AM EDT documented as of this encounter Plan of Treatment Not on file documented as of this encounter Visit Diagnoses Diagnosis Chronic low back pain, unspecified back pain laterality, unspecified whether sciatica present documented in this encounter Additional Health Concerns Assessment Noted Time PHQ-9 Depression Total Score: 3 05/09/19 24 10:30 AM EST documented as of this encounter Care Teams Associate Sales Manager Relationship Specialty Start Date End Date Nadira Ospina NP [address] [place] [id number] PCP - General Family Medicine 12/06/23 documented as of this encounter
--- OUTSIDE RECORDS SUMMARY | 2024-04-25 08:07 | XMS_ITS | Encounter Summary ---
Author Organization [employer] Address [address] [facility] 7t [place] [address] Care Team Providers Care Fretted String Instrument Repairer Name Role Phone Nadira Ospina NP Primary Care Provider [phone] Reason for Visit * Reason Onset Date Comments Referral 04/16/2024 Encounter Details Date Type Department Care Team ([facility] st Contact Info) Description 04/16/2024 Telephone [facility] MED[facility] [address] [place], [place] [phone] Nadira Ospina NP [address] [place], [place] [phone] Referral Social History Tobacco Use Types Packs/Day [...] Telephone Encounter - Alicia Atkins RN - 04/17/2024 11:45 AM EST TC to pt to inform of message from [facility] clinical account specialist, Joe gonzalez, [facility] PT will decide if patient is eligible for this. At this point there's nothing else we can do. If patient finds a place that would do that he can call us back with information to fax notes. As of now it's up to PT to consider it necessary. Thank you. Pt verbalized understanding and reports he will look for a facility for therapeutic massage. Denies any further questions or concerns at this time. * Telephone Encounter - Alicia Atkins RN - 04/17/2024 9:23 AM EST TC placed to Kyaw [facility] Physical Therapy in regards to referral placed on 04/13/24. Kyaw states that referral received states chronic pain but the note says hand pain. Kyaw states that if the pt is specifically looking for therapeutic massage and not physical therapy, they do not do that at [facility]. Kyaw states that massage is added to plan of care if they believe it would help to the pt but would not be apart of every visit. Kyaw states that if pt is looking for services for his hand pain, a new referral will need to be placed to OT. If the pt is looking for PT for knee pain, the referral they have willsuffice. TC placed to pt regarding above message from [facility]. Pt informed of what [facility] states. Pt specifically wants therapeutic massage. Pt reports he does not want PT and/or OT and is requesting therapeuticmassage only for chronic whole body pain due to osteoarthritis . Message forwarded to referral team to review and advise. * Telephone Encounter - Kun Barber - 04/17/2024 8:59 AM EST TC from pt Kyaw at [facility] Physical therapy returning call regarding prior message. Contact Kyaw at [phone] * Telephone Encounter - Alicia Atkins RN - 04/16/2024 11:09 AM EST TC placed to Kyaw at [facility] Physical Therapy. No answer, LVM to call office back and ask to speak to blue team nurses. * Telephone Encounter - Mike Garcia - 04/16/2024 9:56 AM EST Tc from Kyaw with Physical Therapy at [facility] reports received Referral for Chronic pain , but notes attached was regarding hand pain . Kyaw suggest if referral is indeed regarding hand pain , referral needs to be updated to Occupational Therapy and DX would also have to be updated with a DX for hand Kyaw # [phone] documented in this encounter Plan of Treatment Not on file documented as of this encounter Visit Diagnoses Not on filedocumented in this encounter Additional Health Concerns Assessment Noted Time PHQ-9 Depression Total Score: 3 05/09/19 10:30 AM EST documented as of this encounter Care Teams Fretted String Instrument Repairer Relationship Specialty Start Date End Date Nadira Ospina NP [address] [place] [id number] PCP - General Family Medicine 12/06/23 documented as of this encounter
--- OUTSIDE RECORDS SUMMARY | 2024-04-25 08:07 | XMS_ITS | Encounter Summary ---
Author Organization [employer] Address [address] [facility] 7[address] [place] [address] Care Team Providers Care Conical Mixer Name Role Phone Lauren Morgan Primary Care Provider [phone] Nadira Ospina NP Primary Care Provider [phone] Encounter Details Date Type Department Care Team (Late st Contact Info) Description 09/02/2023 Orders Only [facility] MED & PEDS [address] [place], [place] [phone] Lauren Morgan FNP [address] [place], [place] [phone] Social History Tobacco Use Types Packs/Day Years Used Date Smoking Tobacco: Some Days Cigarettes Smokeless Tobacco: Never Alcohol Use Standard Drinks/Week Comments Never 0 (1 standard drink = 0.6 oz pur e alcohol) Depression Answer Date Recorded Patient Health Questionnaire-9 Score 3 05/09/2023 Patient Health Questionnaire-9 Score 3 05/09/2023 Last PHQ-9: Questionnaire Data Not on file 0 05/09/2023 Housing Stability Answer Date Recorded What is your housing situation today? I have héctor norwood 01/18/[address] you li ve. Do you have problems with any of the following? None of the above 01/18/2023 Food Insecurity Answer Date Recorded Within the past 12 months, y ou worried that your food would run out before you got money to buy more: Never True 01/18/2023 Within the past 12 months,th e food you bought just didn't last and you didn't have enough money to get more: Never True Transportation Answer Date Recorded In the past 12 months, has l ack of transportation kept you from medical appts, meetings, work or from getting things needed for daily living? No 01/18/2023 Utilities Answer Date Recorded In the past 12 months, has t he electric, gas, oil or water company threatened to shut off services in your home? No 01/18/2023 Depression Answer Date Recorded Patient Health Questionnaire-2 Score 0 05/09/2023 Sex and Gender Information Value Date Recorded [...] documented as of this encounter Care Teams Conical Mixer Relationship Specialty Start Date End Date Lauren Morgan FNP [address] [place] [address] PCP - General Family Medicine 06/07/22 12/05/23 Nadira Ospina NP [address] [place] [address] PCP - General Family Medicine 12/06/23 documented as of this encounter
--- OUTSIDE RECORDS SUMMARY | 2024-04-25 08:07 | XMS_ITS | Clinical Summary ---
Author Organization [employer] Address [address] [place] [address] 7[address] [place] [address] Care Team Providers Care Control Board Operator Name Role Phone Nadira Ospina NP Primary Care Provider [phone] Allergies No known active allergies Medications Multiple Vitamins-Minerals (Mens Daily Formula/Lycopene) capsule Take 1 capsule by mouth in the morning. 021 Active gabapentin (Neurontin) 600 MG tablet TAKE 1 AND 1/2 TABLETS BY MOUTH 3 TIMES A DAY 023 Active rosuvastatin (Crestor) 10 MG tablet TAKE 1 TABLET BY MOUTH EVERY DAY 90 tablet 3 024 Active nabumetone (Relafen) 750 MG tabletIndications :Herniation of intervertebral disc between L4 and L5 TAKE 1 TABLET BY MOUTH TWICE A DAY 180 tablet 3 024 Active omega-3 (fish oil) 1000 MG capsule TAKE 1 CAPSULE (1,000 MG) BY MOUTH 2 TIMES DAILY. 180 capsule 2 024 Active Additional Information Patient taking differently: 1 capsule Oral Daily, Informant: Self, Reported on 01/04/2024 miconazole (Micotin) 2 % cream Apply 1 Application. topically 2 times daily. to affected area 024 Active mineral oil-hydrophilic petrolatum (Aquaphor) ointment Apply topically if needed for dry skin. 396 g 1 024 2024 Active lisinopril 20 MG tablet TAKE 1 TABLET BY MOUTH EVERY DAY IN THE MORNING 90 tablet 1 024 Active D-1000 Extra Strength 25 MCG (1000 UT) tabletIndications :Vitamin D deficiency TAKE 1 TABLET BY MOUTH EVERY DAY 90 tablet 1 024 Active cyclobenzaprine (Flexeril) 10 MG tabletIndications :Chronic low back pain, unspecified back pain laterality, unspecified whether sciatica present TAKE 1 TABLET BY MOUTH TWICE A DAY IN THE MORNING AND BEDTIME NEEDED FOR SPASMS 60 tablet 025 Active cyclobenzaprine (Flexeril) 10 MG tabletIndications :Chronic low back pain, unspecified back pain laterality, unspecified whether sciatica present TAKE 1 TABLET BY MOUTH TWICE A DAY IN THE MORNING AND BEDTIME NEEDED FOR SPASMS 60 tablet 024 2024 Discontinued Active Problems Problem Noted Date Diagnosed Date Diabetes due to undrl condition w oth diabetic n euro comp 02/04/2024 Conductive hearing loss of left ear 01/31/2024 Speech delay 01/31/2024 Pain in both hands 01/31/2024 Assessment & Plan (02/04/2024 3:30 PM EDT): Referral to ortho Hyperlipidemia 01/31/2024 Assessment & Plan (02/04/2024 3:31 PM EDT): Continue statin Labs as ordered below Hypertension 01/31/2024 Assessment & Plan (02/04/2024 3:30 PM EDT): Above goal of <140/<90 however pt reports bp at goal at home Continue lisinopril 20 mg Measure at home Encounter for screening for malignant neoplasm o f colon 01/31/2024 Assessment & Plan (02/04/2024 3:31 PM EDT): Cologuard ordered Flexural atopic dermatitis 01/31/2024 History of total left knee replacement (TKR) Muscle spasticity 06/30/2022 Assessment & Plan (02/04/2024 3:28 PM EDT): Cyclobenzaprine beneficial Cervicalgia 05/07/2022 Convulsions 05/07/2022 Excessive falling 05/07/2022 Osteoarthritis of knee 05/07/2022 Bipolar disorder 05/07/2022 Varicose veins of lower extremity 04/16/2022 IFG (impaired fasting glucose) 08/01/2018 Abnormal MRI, thoracic spine 08/08/2017 Chronic low back pain 08/08/2017 Herniation of intervertebral disc between L5 and S1 08/08/2017 Knee pain 10/13/2016 Post-traumatic osteoarthritis of both knees 10/02 Adult attention deficit hyperactivity disorder 0 08/10/2016 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 Assessment & Plan (02/04/2024 3:32 PM EDT): Stable, in remission Active Denies mh concerns Concerned re speech delay referral to speech therapy Encounters Date Type Department Care Team Description 04/18/2024 Refill [facility] [address] [place] [address] Nadira Ospina NP Chronic low back pain, unspecified back pain laterality, unspecified whether sciatica present 04/16/2024 Telephone [facility] [address] [place] [address] Nadira Ospina NP Referral 04/11/2024 Telephone [facility] [address] [place] [address] Nadira Ospina NP Referral 03/14/2024 Refill [facility] [address] [place] [address] Nadira Ospina NP Chronic low back pain, unspecified back pain laterality, unspecified whether sciatica present 02/18/2024 Refill [facility] [address] [place] [address] Lauren Morgan FNP Vitamin D deficiency 02/11/2024 Refill [facility] [address] [place] [address] Nadira Ospina NP Chronic low back pain, unspecified back pain laterality, unspecified whether sciatica present 01/31/2024 11:00 AM EDT Office Visit [facility] [address] [place] [address] Nadira Ospina NP Cervicalgia (Primary Dx); Convulsions, unspecified convulsion type (CMS/HCC); Herniation of intervertebral disc between L5 and S1; Conductive hearing loss of left ear, unspecified hearing status on contralateral side; Traumatic brain injury, 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, sequela (CMS/HCC); Speech delay; Pain in both hands; Hypertension, unspecified type; Moderate mixed hyperlipidemia not requiring statin therapy; Encounter for screening for malignant neoplasm of colon; Flexural atopic dermatitis; Encounter for immunization; Muscle spasticity; Diabetes due to undrl condition w oth diabetic neuro comp ([facility]/HCC); Bipolar disorder in full remission, most recent episode unspecified type (CMS/HCC); Traumatic brain injury with loss of consciousness, sequela ([facility]/HCC) 01/31/2024 Travel 01/30/2024 Telephone [facility] [address] [place] [address] Miracle Ferguson [place] CHART PREP 01/24/2024 Patient Outreach [facility] [address] [place], [place] [phone] Nadira Ospina NP Pre-visit Planning (SDOH unable to reach LV) from Last 3 Months Immunizations Name Administration Dates Next Due INFLUENZA VACCINE QUADRIVALE NT RECOMBINANT PRESERVATIVE FREE RIV4 01/31/2020 Influenza Injectable Quadriv alant Preservative Free IIV4 MDCK 03/16/2022,05/13/2017 Influenza injectable quadrivalent preservative f ree 03/16/2019,02/03/2018 Influenza, seasonal, injectable, preservative fr ee 01/31/2024,11/25/2014 Moderna Covid-19 Vaccine 12+ 09/12/2020,08/16/19 21 Pneumococcal Polysaccharide PPSV23 10/13/2023 Tdap 10/13/2023 Zoster, Recombinant 10/13/2023 Family History Medical History Relation Name Comments Heart attack Father Throat cancer Maternal Grandfather Heart disease Mother Liver cancer Paternal Grandfather Aneurysm Paternal Grandmother Relation Name Status Comments Father Maternal Grandfather Mother Paternal Grandfather Paternal Grandmother Social History Tobacco Use Types Packs/Day Years Used Date Smoking Tobacco: Former Cigarettes Smokeless Tobacco: Never Tobacco Cessation:Counseling Given: Not Answered Alcohol Use Standard Drinks/Week Comments Never 0 [...] Orientation Straight 02/01/2022 10 :31 AM EDT Last Filed Vital Signs Vital Sign Reading Time Taken Comments Blood Pressure 144/84 01/31/2024 10:49 AM EDT Pulse 83 01/31/2024 10:49 AM EDT Temperature 36.3 ??C (97.4 ??F) 09/02/2023 9:54 AM ED T Respiratory Rate 16 01/31/2024 10:49 AM EDT Oxygen Saturation 97% 01/31/2024 10:49 AM EDT Inhaled Oxygen Concentration - - Weight 65.9 kg (145 lb 3.2 oz) 01/31/2024 10:49 AM EDT Height 175.3 cm (5' 9 ) 01/31/2024 10:49 AM EDT Body Mass Index 21.44 01/31/2024 10:49 AM EDT Plan of Treatment Health Maintenance Due Date Last Done Comments CT Colonography 1970 Colonoscopy 1970 FIT DNA/Cologuard 1970 FIT 1970 Sigmoidoscopy 1970 Diabetes: Foot Exam 1980 Eye Exam 1980 Diabetes: Urine Protein Screening 1989 Hepatitis B Vaccines (1 of 3 - 19+ 3-dose series) 1989 Diabetes: Hemoglobin A1C 11/07/2022 05/10/2022, 09/02 Lipid Panel 05/10/2023 05/10/2022, 09/03, 09/19/2020 Colorectal Cancer Screening 08/03/2023 FOBT 08/03/2023 COVID-19 Vaccine ( season) 2023 09/12/2020, 08/15/2020 Zoster Vaccines (2 of 2) 12/08/2023 10/13/2023 Depression Screening 05/09/2024 05/09/2023, 05/09/19 24 Pneumococcal Vaccine: Pediatrics (0 to 5 Years) and At-Risk Patients (6 to 64 Years) (2 of 2 - PCV) 10/12/2024 10/13/2023 Alcohol/Substance Use Screening 01/30/2025 01/31/2024 SDOH Screening 01/30/2025 01/31/2024 Tobacco Screening 01/30/2025 01/31/2024 DTaP/Tdap/Td Vaccines (2 - Td or Tdap) 10/12/2033 10/13/2023 RSV Patients and Patients Aged 60 years or older (1 - 1-dose 75+ series) 2045 HIV Screening Completed 09/27/2022 Hepatitis C Screening Completed 09/27/2022 Influenza Vaccine Completed 01/31/2024, , 01/31/2020, Additional history exists HIB Vaccines Aged Out No longer eligi ble based on patient's age to complete this topic HPV Vaccines Aged Out No longer eligi ble based on patient's age to complete this topic Hepatitis A Vaccines Aged Out No long er eligible based on patient's age to complete this topic IPV Vaccines Aged Out No longer eligi ble based on patient's age to complete this topic Meningococcal Vaccine Aged Out No liz roger eligible based on patient's age to complete this topic RSV under 20 months Aged Out No longe r eligible based on patient's age to complete this topic Rotavirus Vaccines Aged Out No longer eligible based on patient's age to complete this topic Procedures Procedure Name Priority Date/Time Associated Diagnosis Comments HEPATITIS C AB W/REFL TO HCV RNA, QN, PCR Routine 09/27/2022 8:32 AM EDT Screening for STD (sexually transmitted disease) HIV 1 RNA, QN PCR W/RFL MAGGY (RTI,PI,INTEGRASE) Routine 09/27/2022 8:32 AM EDT Screening for STD (sexually transmitted disease) HEMOGLOBIN A1C Routine 05/10/2022 9:25 AM EST IFG (impaired fasting glucose) LIPID PANEL, STANDARD Routine 05/10/2022 9:25 AM EST IFG (impaired fasting glucose) from Last 3 Months or Most Recently Relevant to Health Maintenance Results * HIV-1 RNA, Quantitative, Real-Time PCR with Reflex to Genotype (RTI, PI, Integrase) (09/27/2022 8:32 AM EDT) Pathologist [facility] HIV 1 RNA, QN PCR NOT DETECTED copies/mL [facility]/N Written [facility], HIV 1 RNA, QN PCR NOT DETECTED Log copies/mL [facility]/N Written [facility], Comment: REFERENCE RANGE: NOT DETECTED copies/mL ?NOT DETECTED ??Log copies/mL This test was performed using Real-Time Polymerase Chain Reaction. Reportable range is 20 to 10,000,000 copies/mL (1.30-7.00 Log copies/mL). 09/27/2022 8:32 AM EDT 09/27/2022 8:33 AM EDT Narrative [facility] - 09/30/2022 7:15 PM EDT FASTING:NO FASTING: NO [employer] [facility] LAB BLOOD ORDERABLES Final Resu lt Performing Organization Address [facility] de Phone Number [facility] [address], [facility] [place] [address] [employer]Antonio [facility], [address] [place] [address] * Hepatitis C Antibody with Reflex to HCV, RNA, Quantitative, Real-Time PCR (09/27/2022 8:32 AM EDT) Pathologist [facility] Hepatitis C Antibody NON-REACT ANA MARÍA NON-REACT ANA MARÍA [employer] Comment: HCV antibody was non-reactive. There is no laboratory evidence of HCV infection. In most cases, no further action is required. However, if recent HCV exposure is suspected, a test for HCV RNA (test code 75771) is suggested. For additional information please refer to http://education.[employer]/faq/NIW17y9 (This link is being provided for informational/ educational purposes only.) Blood Venous blood specimen / Unknown 09/27/2022 8:32 AM EDT 09/27/2022 8:33 AM EDT Narrative [facility] - 09/30/2022 7:15 PM EDT FASTING:NO FASTING: NO Result [facility] [employer] [facility] LAB BLOOD ORDERABLES Final Resu lt Performing Organization Address [facility] Co de Phone Number [facility] [address], [facility] [place] [address] [employer] [place] [facility] [address] [place] [address] * Hemoglobin A1c (05/10/2022 9:25 AM EST) Pathologist [facility] Hemoglobin A1c 5.3 <5.7 % of total Hgb [employer] [facility] Comment: For the purpose of screening for the presence of diabetes: <5.7% ? Consistent with the absence of diabetes 5.7-6.4% ?Consistent with increased risk for diabetes ?(prediabetes) > or =6.5% ??Consistent with diabetes This assay result is consistent with a decreased risk of diabetes. Currently, no consensus exists regarding use of hemoglobin A1c for diagnosis of diabetes in children. According to [place] Diabetes Association (ADA) guidelines, hemoglobin A1c <7.0% represents optimal control in non- diabetic patients. Different metrics may apply to specific patient populations. Standards of Medical Care in Diabetes(ADA). ?? Blood Venous blood specimen / Unknown 05/10/2022 9:25 AM EST 05/10/2022 9:25 AM EST Narrative [facility] - 05/10/2022 9:11 PM EST FASTING:YES FASTING: YES Lauren Cathy [facility] LAB BLOOD ORDERABLES Final Resu lt [address], [place] [address] [employer] [place] [facility] [address] [facility], ([address]) [place] [address] * (ABNORMAL) Lipid Panel, Standard (05/10/2022 9:25 AM EST) [facility] Signature Cholesterol, Total 187 <200 mg/dL [employer] [place] [facility] HDL Cholesterol 37(L) > OR = 40 mg/dL [employer] [place] [facility] Triglycerides 184(H) <150 mg/dL [employer] [facility] LDL Cholesterol 119(H) mg/dL (calc) [employer] [facility] Comment: Reference range: <100 Desirable range <100 mg/dL for primary prevention; ?? <70 mg/dL for patients with CHD or diabetic patients with > or = 2 CHD risk factors. LDL-C is now calculated using the Joao calculation, which is a validated novel method providing better accuracy than the Friedewald equation in the estimation of LDL-C. Darek SANTOS et al. JEANNE. 2013;310(19): 6859-0357 (http://education.lensgen.[place] [employer]/faq/XSP704) Chol/HDLC Ratio 5.1(H) <5.0 (calc) [employer] [facility] Non-HDL Cholesterol 150(H) <130 mg/dL (calc) [employer] [facility] Comment: For patients with diabetes plus 1 major ASCVD risk factor, treating to a non-HDL-C goal of <100 mg/dL (LDL-C of <70 mg/dL) is considered a therapeutic option. Blood Venous blood specimen / Unknown 05/10/2022 9:25 AM EST 05/10/2022 9:25 AM EST Narrative [facility] - 05/10/2022 9:11 PM EST FASTING:YES FASTING: YES Lauren Morgan [facility] LAB BLOOD ORDERABLES Final Resu lt [facility] [address], [place] [address] [employer] 200 [facility], ([address]) [place] [address] from Last 3 Months or Most Recently Relevant to Health Maintenance Insurance [facility] Care Teams Control Board Operator Relationship Specialty Start Date End Date Nadira Ospina NP [address] [place] [address] PCP - General Family Medicine 12/06/23
--- OUTSIDE RECORDS SUMMARY | 2024-04-25 08:07 | XMS_ITS | Clinical Summary ---
Author Organization [employer] [facility] ity Address [address] [place] [address] Care Team Providers Care Software Packaging Engineer Name Role Phone Unavailable Primary Care Provider Unavailabl e Social History Tobacco Use Types Packs/Day Years Used Date Smoking Tobacco: Never Assessed Sex and Gender Information Value Date Recorded Sex Assigned at Not on file Gender Identity Not on file Sexual Orientation Not on file Plan of Treatment Health Maintenance Due Date Last Done Comments DTaP,Tdap,and Td Vaccines (1 - Tdap) 1989 Hepatitis B Vaccines (1 of 3 - 19+ 3-dose series) 1989 Zoster Vaccines (1 of 2) 2020 Cholesterol Screening (Lipid Panel) 11/28/2023 Colorectal Cancer Screening: Colonoscopy 11/28/2023 Depression Screening 11/28/2023 HIV Screening 11/28/2023 Hepatitis C Screening 11/28/2023 Social Influencers of Health Screening 11/28/2023 COVID-19 Vaccine ( - 2023-2 5 season) 2023 Influenza Vaccine (#1) 2023 HIB Vaccines Aged Out No longer eligi [...] on patient's age to complete this topic MMR Vaccines Aged Out No longer eligi ble based on patient's age to complete this topic Meningococcal ACWY Vaccine Aged Out N o longer eligible based on patient's age to complete this topic Pneumococcal Vaccine: Pediat rics (0 to 5 Years) and At-Risk Patients (6 to 64 Years) Aged Out No longer eligible b ased on patient's age to complete this topic RSV Immunization Patients Un christin 20 months Aged Out No longer eligible b ased on patient's age to complete this topic Varicella Vaccines Aged Out No longer eligible based on patient's age to complete this topic
--- OUTSIDE RECORDS SUMMARY | 2024-04-25 08:08 | XMS_ITS | Encounter Summary ---
Author Organization [employer] Address [address] [place] [address] 7t [place] [address] Care Team Providers Care Sequins Spooler Name Role Phone Lauren MorganP Primary Care Provider [phone] Nadira Ospina NP Primary Care Provider [phone] Reason for Visit * Reason Onset Date Comments Med Refill 08/31/2023 Encounter Details Date Type Department Care Team (Late st Contact Info) Description 08/31/2023 Refill [facility] MEDICINE [address] [place], [place] [phone] Lauren Morgan FNP [address] [place], [place] [phone] Chronic low back pain, unspecified back pain laterality, unspecified whether sciatica present; Herniation of intervertebral disc between L4 and L5 Social History Tobacco Use Types Packs/Day Years [...] back pain laterality, unspecified whether sciatica present Herniation of intervertebral disc between L4 and L5 documented in this encounter Additional Health Concerns Assessment Noted Time PHQ-9 Depression Total Score: 3 05/09/19 24 10:30 AM EST documented as of this encounter Care Teams Sequins Spooler Relationship Specialty Start Date End Date Lauren Morgan FNP [address] [place] [address] PCP - General Family Medicine 06/07/22 12/05/23 Nadira Ospina NP [address] [place] [address] PCP - General Family Medicine 12/06/23 documented as of this encounter
--- OUTSIDE RECORDS SUMMARY | 2024-04-25 08:08 | XMS_ITS | Encounter Summary ---
Author Organization [employer] Address [address] [place] [address] 7 [place] [address] Care Team Providers Care Rifle Case Repairer Name Role Phone Jordan Hagen Primary Care Provider Gilmer Mcadams Primary Care Provider Gilmer Bender Primary Care Provider Jordan Lacey Primary Care Provider Unavail Lauren Peterson Primary Care Provider + Nadira Ospina NP Primary Care Provider [phone] Reason for Visit * Reason Comments Med Refill Encounter Details Date Type Department Care Team (Late st Contact Info) Description 04/19/2022 Refill [facility] [address] [place], [place] [phone] Barry Ott MD [address] [place], [place] [phone] Herniation of intervertebral disc between L4 and [...] encounter Miscellaneous Notes * Telephone Encounter - JOHN Garcia - 04/23/2022 4:38 PM EST Will refill, please schedule TP appointment with me. documented in this encounter Plan of Treatment Not on file documented as of this encounter Visit Diagnoses Diagnosis Herniation of intervertebral disc between L4 and L5 documented in this encounter Care Teams Rifle Case Repairer Relationship Specialty Start Date End Date Jordan Hagen AGNP PCP - General Family Medicine 03/03/22 05/06/22 Gilmer Biggs FNP PCP - General Family Medicine 05/07/22 05/16/22 Gilmer Biggs FNP PCP - General Family Medicine 05/17/22 05/26/22 Jordan Hagen AGNP PCP - General Family Medicine 05/27/22 06/06/22 Lauren Morgan FNP 230 [place] [address] PCP - General Family Medicine 06/07/22 12/05/23 Nadira Ospina NP [address] [place] [address] PCP - General Family Medicine 12/06/23 documented as of this encounter
--- OUTSIDE RECORDS SUMMARY | 2024-04-25 08:08 | XMS_ITS | Encounter Summary ---
Author Organization [employer] Address [address] [place] [address] 7t [place] [address] Care Team Providers Care Sheet Metal Layout Worker Name Role Phone Lauren MorganP Primary Care Provider [phone] Nadira Ospian NP Primary Care Provider [phone] Reason for Visit * Reason Comments Med Change Request Encounter Details Date Type Department Care Team ([facility] st Contact Info) Description 09/02/2023 Refill [facility] MEDICINE [address] [place], [place] [phone] Lauren Morgan FNP [address] [place], [place] [phone] Social History Tobacco Use Types Packs/Day Years [...] documented as of this encounter Care Teams Sheet Metal Layout Worker Relationship Specialty Start Date End Date Lauren Morgan FNP [address] [place] [address] PCP - General Family Medicine 06/07/22 12/05/23 Nadira Ospina NP [address] [place] [address] PCP - General Family Medicine 12/06/23 documented as of this encounter
--- OUTSIDE RECORDS SUMMARY | 2024-04-25 08:08 | XMS_ITS | Encounter Summary ---
Author Organization [employer] Address [address] [facility] 7t [place] [address] Care Team Providers Care Radiology Teacher Name Role Phone Lauren MorganP Primary Care Provider [phone] Nadira Ospina NP Primary Care Provider [phone] Reason for Visit * Reason Comments Med Refill Encounter Details Date Type Department Care Team (Late st Contact Info) Description 04/12/2023 Refill [facility] MEDICINE [address] [place], [place] [phone] Lauren Morgan FNP [address] [place], [place] [phone] Vitamin D deficiency Social History Tobacco Use Types Packs/Day Years Used Date Smoking Tobacco: Never Smokeless Tobacco: Never Alcohol Use Standard Drinks/Week Comments Never 0 (1 standard drink = 0.6 oz pur e alcohol) Housing Stability Answer Date Recorded What is [...] Date Recorded Patient Health Questionnaire-2 Score 0 05/07/2022 Sex and Gender Information Value Date Recorded Sex Assigned at Male 02/01/2022 10:31 AM EDT Legal Sex Male 10:31 AM EDT Gender Identity Male 02/01/2022 10:31 AM EDT Sexual Orientation Straight 02/01/2022 10 :31 AM EDT documented as of this encounter Plan of Treatment Not on file documented as of this encounter Visit Diagnoses Diagnosis Vitamin D deficiency documented in this encounter Care Teams Radiology Teacher Relationship Specialty Start Date End Date Lauren Morgan FNP [address] [place] [address] PCP - General Family Medicine 06/07/22 12/05/23 Nadira Ospina NP [address] [place] [address] PCP - General Family Medicine 12/06/23 documented as of this encounter
--- OUTSIDE RECORDS SUMMARY | 2024-04-25 08:08 | XMS_ITS | Encounter Summary ---
Author Organization [employer] Address [address] [place] [address] 7t [place] [address] Care Team Providers Care Solar Energy Consultant And Designer Name Role Phone Lauren Morgan COMMUNITY SUPPORT WORKER Primary Care Provider [phone] Nadira Ospina PRODUCTION TEAM ADVISOR Primary Care Provider [phone] Reason for Visit * Reason Comments Med Refill Encounter Details Date Type Department Care Team (Late st Contact Info) Description 08/30/2023 Refill [facility] MEDICINE [address] [place], [place] [phone] [facility] [address] [place], [place] [phone] Herniation of intervertebral disc between L4 and [...] documented as of this encounter Care Teams Solar Energy Consultant And Designer Relationship Specialty Start Date End Date Lauren Morgan FNP [address] [place] [address] PCP - General Family Medicine 06/07/22 12/05/23 Nadira Ospina NP [address] [place] [address] PCP - General Family Medicine 12/06/23 documented as of this encounter
--- OUTSIDE RECORDS SUMMARY | 2024-04-25 08:08 | XMS_ITS | Encounter Summary ---
Author Organization [employer] Address [address] [facility] 7t [place] [address] Care Team Providers Care Entertainer & Comic Name Role Phone Lauren MorganP Primary Care Provider [phone] Nadira Ospina NP Primary Care Provider [phone] Reason for Visit * Reason Comments Med Change Request Encounter Details Date Type Department Care Team ([facility] st Contact Info) Description 03/26/2023 Refill [facility] MEDICINE [address] [place], [place] [phone] Lauren Morgan FNP [address] [place], [place] [phone] Herniation of intervertebral disc between L4 and [...] encounter Miscellaneous Notes * Telephone Encounter - Lauren Morgan CNP - 04/25/2023 7:48 PM EST duplicate documented in this encounter Plan of Treatment Not on file documented as of this encounter Visit Diagnoses Diagnosis Herniation of intervertebral disc between L4 and L5 documented in this encounter Care Teams Entertainer & Comic Relationship Specialty Start Date End Date Lauren Morgan FNP [address] [place] [address] PCP - General Family Medicine 06/07/22 12/05/23 Nadira Ospina NP [address] [place] [address] PCP - General Family Medicine 12/06/23 documented as of this encounter
--- OUTSIDE RECORDS SUMMARY | 2024-04-25 08:08 | XMS_ITS | Encounter Summary ---
Author Organization [employer] Address [address] [place] [address] 7t [place] [address] Care Team Providers Care Outside Solar Sales Consultant Name Role Phone Lauren MorganP Primary Care Provider [phone] Nadira Ospina NP Primary Care Provider Reason for Visit * Reason Comments Med Refill Encounter Details Date Type Department Care Team (Late st Contact Info) Description 08/20/2023 Refill [facility] MEDICINE [address] [place], [place] [phone] Lauren Morgan FNP [address] [place], [place] [phone] Vitamin D deficiency Social History Tobacco Use [...] Vitamin D deficiency documented in this encounter Additional Health Concerns Assessment Noted Time PHQ-9 Depression Total Score: 3 05/09/19 10:30 AM EST documented as of this encounter Care Teams Outside Solar Sales Consultant Relationship Specialty Start Date End Date Lauren Morgan FNP [address] [place] [address] PCP - General Family Medicine 06/07/22 12/05/23 Nadira Ospina NP [address] [place] [address] PCP - General Family Medicine 12/06/23 documented as of this encounter
--- OUTSIDE RECORDS SUMMARY | 2024-04-25 08:08 | XMS_ITS | Encounter Summary ---
Author Organization [employer] Address [address] [place] [address] 7t [place] [address] Care Team Providers Care Hand Sewer Shoes Name Role Phone Gilmer Biggs Primary Care Provider Gilmer Bender Primary Care Provider Jordan Lacey Primary Care Provider Lauren Ames Primary Care Provider [phone] Nadira Ospina NP Primary Care Provider [phone] Encounter Details Date Type Department Care Team (Late st Contact Info) Description 05/10/2022 Orders Only [facility] MEDICINE [address] [place], [place] [phone] Lauren Morgan FNP [address] [place], [place] [phone] IFG (impaired fasting glucose) (Primary Dx) Social History Tobacco Use Types Packs/Day Years Used Date Smoking Tobacco: Never Smokeless Tobacco: Never Depression Answer Date Recorded Patient Health Questionnaire-2 Score 0 05/07/2022 Sex and Gender Information Value Date Recorded Sex Assigned at Male 02/01/2022 10:31 AM EDT Legal Sex Male 10:31 AM EDT Gender Identity Male 02/01/2022 10:31 AM EDT Sexual Orientation Straight 02/01/2022 10 :31 AM EDT COVID-19 Exposure Response Date Recorded In the last 10 days, have yo u been in contact with someone who was confirmed or suspected to have Coronavirus/COVID-19? No / Unsure 05/07/2022 9:11 AM EST documented as of this encounter Plan of Treatment Not on file documented as of this encounter Procedures Procedure Name Priority Date/Time Associated Diagnosis Comments HEMOGLOBIN A1C Routine 05/10/2022 9:25 AM EST IFG (impaired fasting glucose) LIPID PANEL, STANDARD Routine 05/10/2022 9:25 AM EST IFG (impaired fasting glucose) COMPREHENSIVE METABOLIC PANEL Routine 05/10/2022 9:25 AM EST IFG (impaired fasting glucose) documented in this encounter Results * Hemoglobin A1c (05/10/2022 9:25 AM EST) Pathologist [facility] Hemoglobin A1c 5.3 <5.7 % of total Hgb [facility] Comment: For the purpose of screening for the presence of diabetes: <5.7% ? Consistent with the absence of diabetes 5.7-6.4% ?Consistent with increased risk for diabetes ?(prediabetes) > or =6.5% ??Consistent with diabetes This assay result is consistent with a decreased risk of diabetes. Currently, no consensus exists regarding use of hemoglobin A1c for diagnosis of diabetes in children. According to [place] Diabetes Association (ADA) guidelines, hemoglobin A1c <7.0% represents optimal control in non- diabetic patients. Different metrics may apply to specific patient populations. Standards of Medical Care in Diabetes(ADA). ?? Blood Venous blood specimen / Unknown 05/10/2022 9:25 AM EST 05/10/2022 9:25 AM EST Narrative [facility] - 05/10/2022 9:11 PM EST FASTING:YES FASTING: YES us Lauren Morgan [facility] BLOOD ORDERABLES Final Resu lt [facility] [address], [place] [address] [facility] [address] [facility], ([address]) [place] [address] * (ABNORMAL) Lipid Panel, Standard (05/10/2022 9:25 AM EST) Pathologist [facility] Cholesterol, Total 187 <200 mg/dL [facility] HDL Cholesterol 37(L) > OR = 40 mg/dL [facility] Triglycerides 184(H) <150 mg/dL [facility] LDL Cholesterol 119(H) mg/dL (calc) [facility] Comment: Reference range: <100 Desirable range <100 mg/dL for primary prevention; ?? <70 mg/dL for patients with CHD or diabetic patients with > or = 2 CHD risk factors. LDL-C is now calculated using the Joao calculation, which is a validated novel method providing better accuracy than the Friedewald equation in the estimation of LDL-C. Darek SS et al. JEANNE. 2013;310(19): 8387-1167 (http://education.[employer]faq/WEY048) Chol/HDLC Ratio 5.1(H) <5.0 (calc) [facility] Non-HDL Cholesterol 150(H) <130 mg/dL (calc) [facility] Comment: For patients with diabetes plus 1 major ASCVD risk factor, treating to a non-HDL-C goal of <100 mg/dL (LDL-C of <70 mg/dL) is considered a therapeutic option. Blood Venous blood specimen / Unknown 05/10/2022 9:25 AM EST 05/10/2022 9:25 AM EST Narrative [facility] - 05/10/2022 9:11 PM EST FASTING:YES FASTING: YES Lauren Morgan [facility] BLOOD ORDERABLES Final Resu lt [facility] [address] [facility], [place] [address] [facility] [address] [facility], ([address]) [place] [address] * (ABNORMAL) Comprehensive Metabolic Panel (05/10/2022 9:25 AM EST) Glucose 101(H) 65 - 99 mg/dL [facility] Comment: ? Fasting reference interval For someone without known diabetes, a glucose value between 100 and 125 mg/dL is consistent with prediabetes and should be confirmed with a follow-up test. Urea Nitrogen (BUN) 9 7 - 25 mg/dL [facility] Creatinine, Serum 0.81 0.70 - 1.30 mg/dL [facility] eGFR 107 > OR = 60 mL/min/1 .73m2 [facility] Comment: The eGFR is based on the CKD-EPI 2020 equation. To calculate the new eGFR from a previous Creatinine or Cystatin C result, go to https://www.kidney.org/professionals/ kdoqi/gfr%5Fcalculator BUN/Creatinine Ratio NOT APPLICABLE 6 - 22 (calc) [facility] Sodium 139 135 - 146 mmol/L [facility] Potassium 4.6 3.5 - 5.3 mmol/L [facility] Chloride 101 98 - 110 mmol/L [facility] Carbon Dioxide 26 20 - 32 mmol/L [facility] Calcium 9.7 8.6 - 10.3 mg/dL [facility] Protein, Total 7.5 6.1 - 8.1 g/dL [facility] Albumin 4.9 3.6 - 5.1 g/dL [facility] Globulin 2.6 1.9 - 3.7 g/dL (calc) [facility] Albumin/Globul in Ratio 1.9 1.0 - 2.5 (calc) [facility] Bilirubin, Total 0.4 0.2 - 1.2 mg/dL [facility] Alkaline Phosphatase 77 35 - 144 U/L [facility] AST 24 10 - 35 U/L [facility] ALT 31 9 - 46 U/L [facility] Blood Venous blood specimen / Unknown 05/10/2022 9:25 AM EST 05/10/2022 9:25 AM EST Narrative [facility] - 05/10/2022 9:11 PM EST FASTING:YES FASTING: YES Lauren [facility] BLOOD ORDERABLES Final Resu lt [facility] [address] [facility], [place] [address] [facility] [address] [facility], ([address]) [place] [address] documented in this encounter Visit Diagnoses Diagnosis IFG (impaired fasting glucose)- Primary documented in this encounter Care Teams Hand Sewer Shoes Relationship Specialty Start Date End Date Gilmer Biggs FNP PCP - General Family Medicine 05/07/22 05/16/22 Gilmer Biggs FNP PCP - General Family Medicine 05/17/22 05/26/22 Jordan Hagen AGNP PCP - General Family Medicine 05/27/22 06/06/22 Lauren Morgan FNP [address] [place] [address] PCP - General Family Medicine 06/07/22 12/05/23 Nadira Ospina NP [address] [place] [address] PCP - General Family Medicine 12/06/23 documented as of this encounter
--- OUTSIDE RECORDS SUMMARY | 2024-04-25 08:08 | XMS_ITS | Encounter Summary ---
Author Organization [employer] Address [address] [place] [address] 7t [place] [address] Care Team Providers Care Child Health Associate Name Role Phone Lauren MorganP Primary Care Provider [phone] Nadira Ospina NP Primary Care Provider [phone] Reason for Visit * Reason Comments Med Refill Encounter Details Date Type Department Care Team (Late st Contact Info) Description 08/30/2023 Refill [facility] MEDICINE [address] [place], [place] [phone] Lauren Morgan FNP [address] [place], [place] [phone] Vitamin D deficiency Social History Tobacco Use [...] documented as of this encounter Care Teams Child Health Associate Relationship Specialty Start Date End Date Lauren Morgan FNP [address] [place] [address] PCP - General Family Medicine 06/07/22 12/05/23 Nadira Ospina NP [address] [place] [address] PCP - General Family Medicine 12/06/23 documented as of this encounter
--- OUTSIDE RECORDS SUMMARY | 2024-04-25 08:08 | XMS_ITS | Encounter Summary ---
Author Organization [employer] Address [address] [place] [address] 7 [place] [address] Care Team Providers Care Entry Level Buyer Name Role Phone Jordan Hagen Primary Care Provider Gilmer Mcadams Primary Care Provider Gilmer Bender Primary Care Provider Jordan Lacey Primary Care Provider Unavail Lauren Peterson Primary Care Provider [phone] Nadira Ospina NP Primary Care Provider [phone] Reason for Visit * Reason Comments Med Refill Encounter Details Date Type Department Care Team (Late st Contact Info) Description 04/30/2022 Refill [facility] MEDICINE [address] [place] [address] Marilou Riggs FNP Chronic low back pain, unspecified back pain [...] whether sciatica present documented in this encounter Care Teams Entry Level Buyer Relationship Specialty Start Date End Date Jordan Hagen AGNP PCP - General Family Medicine 03/03/22 05/06/22 Gilmer Biggs FNP PCP - General Family Medicine 05/07/22 05/16/22 Gilmer Biggs FNP PCP - General Family Medicine 05/17/22 05/26/22 Jordan Hagen AGNP PCP - General Family Medicine 05/27/22 06/06/22 Lauren Morgan FNP 230 [place] [address] PCP - General Family Medicine 06/07/22 12/05/23 Nadira Ospina NP [address] [place] [address] PCP - General Family Medicine 12/06/23 documented as of this encounter
--- OUTSIDE RECORDS SUMMARY | 2024-04-25 08:08 | XMS_ITS | Encounter Summary ---
Author Organization [employer] Address [address] [facility] 7t [place] [address] Care Team Providers Care Fur Repairer Name Role Phone Lauren MorganP Primary Care Provider [phone] Nadira Ospina NP Primary Care Provider [phone] Reason for Visit * Reason Onset Date Comments Nurse Triage 02/22/2023 Encounter Details Date Type Department Care Team ([facility] st Contact Info) Description 02/22/2023 Telephone [facility] MEDICINE [address] [place], [place] [phone] Lauren Morgan FNP [address] [place], [place] [phone] Nurse Triage Social History Tobacco Use Types Packs/Day Years [...] encounter Miscellaneous Notes * Telephone Encounter - Darcy Tobias RN - 02/22/2023 9:52 AM EST Triage call Pt reports pencil eraser sized lump on right side of neck which Pt feels is an ingrownhair . Pt reports it is painful to touch and needs to be checked. Pt denies redness, drainage, fever. Advised Pt to come to [facility] today, open until 8pm. Pt agrees with disposition . Pt also reports athletes foot on one toe. Advised to obtain OTC treatment such as powders available and to try this at this time and Pt agrees. Protocol Used: Skin Lump or Localized Swelling (Adult) Protocol-Based Disposition: See in Office or Video Visit Today Video visit not offered Positive Triage Question: * Swelling is painful to touch and no fever * All higher-acuity triage questions were negative Care Advice Discussed: * Reasons To Call Back - Fever occurs - Spreading redness occurs - Swelling becomes painful - Swelling persists over 1 week - You become worse * Telephone Encounter - Antoni Virk - 02/22/2023 8:54 AM EST Symptom: Skin Lump Outcome: Schedule an urgent appointment (within 4 hours) or talk to a nurse or provider soon Reason: Red and larger than 1 inch The caller accepted this outcome documented in this encounter Plan of Treatment Not on file documented as of this encounter Visit Diagnoses Not on filedocumented in this encounter Care Teams Fur Repairer Relationship Specialty Start Date End Date Lauren Morgan FNP [address] [place] [address] PCP - General Family Medicine 06/07/22 12/05/23 Nadira Ospina NP 230 [place] [address] PCP - General Family Medicine 12/06/23 documented as of this encounter
== END 2024-04-25 08:04 | disposition home or self-care (01) ==
LOC: HO.NEURO 08:03
DX: R20.0 Anesthesia of skin (principal); R20.2 Paresthesia of skin
CPT/HCPCS: 95886; 95911

== ENCOUNTER → 2024-04-25 08:07 | Outpatient (BNV) | payer OTHER, SELFPAY | PROVIDERS: Visit Provider Physical Medicine & Rehabilitation | DX: R20.0 Anesthesia of skin (principal); R20.2 Paresthesia of skin | CPT/HCPCS: 95886; 95911 ==

== ENCOUNTER 2024-04-30 07:27 | Outpatient (RCR) | payer OTHER, SELFPAY ==
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
--- NOTE | 2024-04-30 08:37 | MHC.OT.DC ---
[address] [phone] F: [phone] Occupational Therapy Discharge Note Patient Name: Cristobal Maurer Clif Olvera Provider: Rafael Santana Diagnosis: (B)hand stiffness Date of Surgery: Date of Evaluation: 03/30/24 Date of Discharge: Treatments to Date: 8 Cancellations to Date: No Shows to Date: Discharge Status: Achieved Goals Improved Function Independent with HEP Discharge Summary: Patient report his hand is better and states I can't believe its back to normal . He is (I) with his HEP and self massage, and compliant with wearing his brace. His Quick DASH score has improved significantly as he achieved a 20.5%. As patient has improved and made maximal potential during therapy patient is discharged from skilled therapy. Thank you for your referral, patient is was a pleasure to work with. Electronically Signed By: ASHLEY Beltrán/BENNY Maurer Reviewed/agree with student documentation: N/A Therapist: Please Sign and return to therapist, thank you for your referral.
== END 2024-04-30 08:37 | disposition home or self-care (01) ==
LOC: HO.OT 07:27
DX: M25.641 Stiffness of right hand, not elsewhere classified (principal); M25.642 Stiffness of left hand, not elsewhere classified
CPT/HCPCS: 97110; 97140; 97166; 97760

== ENCOUNTER 2024-06-01 14:59 | Outpatient (AMB) | payer OTHER, SELFPAY ==
--- NOTE | 2024-06-01 15:00 | A.OFFVIS_ITS ---
Intake Visit Reasons: TEL-B/L hand EMG review Intake Note: Cristobal is a 53 year old ambidextrous male who presents today VIA Telephone for a bilateral hand EMG review. Allergies No Known Allergies [No Known Allergies*] Allergy (Verified 04/13/24 09:14) HPI HPI TEL-B/L hand EMG review: Details: Cristobal is a 53 year old ambidextrous male who presents today VIA Telephone for a bilateral hand EMG review. Patient states that his numbness and tingling have improved since starting therapy. No other acute complaints or concerns at this time. [facility] Medical History (Updated 03/16/24 @ 09:16 by VICKI Olivares) Traumatic brain injury Impingement syndrome, shoulder, left Anxiety Elevated cholesterol ADHD, adult residual type Bipolar 1 disorder Patellar disorder Post-traumatic osteoarthritis of left knee Graves disease Surgical History History of right knee surgery Hx of surgical procedure History of left knee surgery H/O vasectomy Family History Father CVD (cardiovascular disease) Mother Hypertension Son No problems noted. 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 This is a normal study. 2. There is no electrodiagnostic evidence for median neuropathy, ulnar neuropathy, brachial plexopathy, or cervical radiculopathy. Thank you for your kind referral. Dorothy Heaton MD, RAKESH Assessment & Plan Assessment & Plan (1) Numbness and tingling in both hands: Code(s): R20.0 - Anesthesia of skin; R20.2 - Paresthesia of skin Category: Medical Plan 1. Numbness and tingling of both hands Improving since starting occupational therapy At this time, patient was educated that there is no acute intervention indicated for his hands, as his EMG and nerve conduction study were negative Patient was educated that if the numbness and tingling persists for the next 4-5 months, he should call us at that point for referral for repeat EMG Patient was amenable to this plan Patient will follow-up as needed with any acute concerns Coding Level of Care Code Tele Est Pt Level 3 (41929) Diagnoses Numbness and tingling in both hands R20.0; R20.2
--- OUTSIDE RECORDS SUMMARY | 2024-06-01 17:09 | XMS_ITS | Encounter Summary ---
Author Organization [employer] Address [address] [place] [address] 7 [place] [address] Care Team Providers Care Brake Repairer Railroad Name Role Phone Jordan Hagen Primary Care Provider Gilmer Mcadams Primary Care Provider Gilmer Bender Primary Care Provider Jordan Lacey Primary Care Provider Unavail Lauren Peterson Primary Care Provider [phone] Nadira Ospina NP Primary Care Provider [phone] Reason for Visit * Reason Comments Med Refill Encounter Details Date Type Department Care Team (Late st Contact Info) Description 04/30/2022 Refill [facility] MED[facility] [address] [place] [id number] Marilou Riggs FNP Chronic low back pain, [...] present documented in this encounter Care Teams Brake Repairer Railroad Relationship Specialty Start Date End Date Jordan Hagen AGNP PCP - General Family Medicine 03/03/22 05/06/22 Gilmer Biggs FNP PCP - General Family Medicine 05/07/22 05/16/22 Gilmer Biggs FNP PCP - General Family Medicine 05/17/22 05/26/22 Jordan Hagen AGNP PCP - General Family Medicine 05/27/22 06/06/22 Lauren Morgan FNP [address] [place] [address] PCP - General Family Medicine 06/07/22 12/05/23 Nadira Ospina NP [address] [place] [address] PCP - General Family Medicine 12/06/23 documented as of this encounter
--- OUTSIDE RECORDS SUMMARY | 2024-06-01 17:09 | XMS_ITS | Encounter Summary ---
Author Organization [employer] Address [address] [place] [address] 7t [place] [address] Care Team Providers Care Director Employment Name Role Phone Gilmer Biggs Primary Care Provider Gilmer Bender Primary Care Provider Jordan Lacey Primary Care Provider Lauren Ames Primary Care Provider [phone] Nadira Ospina NP Primary Care Provider [phone] Encounter Details Date Type Department Care Team (Late st Contact Info) Description 05/10/2022 Orders Only [facility] MEDICINE [address] [place], [place] [phone] Lauren Morgan FNP [address] [place], [place] [phone] IFG (impaired fasting glucose) (Primary Dx) Social [...] Hemoglobin A1c (05/10/2022 9:25 AM EST) Pathologist [facility] Hemoglobin A1c 5.3 <5.7 % of total Hgb [employer] [email or web address] Comment: For the purpose of screening for the presence of diabetes: <5.7% ? Consistent with the absence of diabetes 5.7-6.4% ?Consistent with increased risk for diabetes ?(prediabetes) > or =6.5% ??Consistent with diabetes This assay result is consistent with a decreased risk of diabetes. Currently, no consensus exists regarding use of hemoglobin A1c for diagnosis of diabetes in children. According to [place] Diabetes Association (ADA) guidelines, hemoglobin A1c <7.0% represents optimal control in non- diabetic patients. Different metrics may apply to specific patient populations. Standards of Medical Care in Diabetes(ADA). ?? Blood Venous blood specimen / Unknown 05/10/2022 9:25 AM EST 05/10/2022 9:25 AM EST Narrative [facility] - 05/10/2022 9:11 PM EST FASTING:YES FASTING: YES us Lauren Morgan [facility] LAB BLOOD ORDERABLES Final Resu lt [facility] [address], [place] [address] [employer] [email or web address] [address] [facility], ([address]) [place] [address] * (ABNORMAL) Lipid Panel, Standard (05/10/2022 9:25 AM EST) Pathologist [facility] Cholesterol, Total 187 <200 mg/dL [employer] [place] [employer] HDL Cholesterol 37(L) > OR = 40 mg/dL [employer] [place] [employer] Triglycerides 184(H) <150 mg/dL [facility] LDL Cholesterol 119(H) mg/dL (calc) [employer] [place] [employer] Comment: Reference range: <100 Desirable range <100 mg/dL for primary prevention; ?? <70 mg/dL for patients with CHD or diabetic patients with > or = 2 CHD risk factors. LDL-C is now calculated using the Joao calculation, which is a validated novel method providing better accuracy than the Friedewald equation in the estimation of LDL-C. Darek SS et al. JEANNE. 2013;310(19): 4092-7443 (http://education.HotGrinds/faq/EGW572) Chol/HDLC Ratio 5.1(H) <5.0 (calc) [employer] [place] [employer] Non-HDL Cholesterol 150(H) <130 mg/dL (calc) [employer] [place] [employer] Comment: For patients with diabetes plus 1 major ASCVD risk factor, treating to a non-HDL-C goal of <100 mg/dL (LDL-C of <70 mg/dL) is considered a therapeutic option. Blood Venous blood specimen / Unknown 05/10/2022 9:25 AM EST 05/10/2022 9:25 AM EST Narrative [facility] - 05/10/2022 9:11 PM EST FASTING:YES FASTING: YES Lauren Morgan [facility] BLOOD ORDERABLES Final Resu lt [facility] [address] [facility], [address] [place] [address] [employer] [email or web address] 200 [facility], (Nl[address]) [place] [address] * (ABNORMAL) Comprehensive Metabolic Panel (05/10/2022 9:25 AM EST) Glucose 101(H) 65 - 99 mg/dL [employer] [place] [employer] Comment: ? Fasting reference interval For someone without known diabetes, a glucose value between 100 and 125 mg/dL is consistent with prediabetes and should be confirmed with a follow-up test. Urea Nitrogen (BUN) 9 7 - 25 mg/dL [employer] [place] [employer] Creatinine, Serum 0.81 0.70 - 1.30 mg/dL [employer] [place] [employer] eGFR 107 > OR = 60 mL/min/1 .73m2 [employer] [place] [employer] Comment: The eGFR is based on the CKD-EPI 2020 equation. To calculate the new eGFR from a previous Creatinine or Cystatin C result, go to https://www.kidney.org/professionals/ kdoqi/gfr%5Fcalculator BUN/Creatinine Ratio NOT APPLICABLE 6 - 22 (calc) [employer] [place] [employer] [facility] Sodium 139 135 - 146 mmol/L [employer] [place] [employer] Potassium 4.6 3.5 - 5.3 mmol/L [employer] [place] [employer] Chloride 101 98 - 110 mmol/L [employer] [place] [employer] Carbon Dioxide 26 20 - 32 mmol/L [employer] [place] [employer] [facility] Calcium 9.7 8.6 - 10.3 mg/dL [employer] [place] [employer] Protein, Total 7.5 6.1 - 8.1 g/dL [employer] [place] [employer] Albumin 4.9 3.6 - 5.1 g/dL [facility] [place] [facility] Globulin 2.6 1.9 - 3.7 g/dL (calc) [employer] [email or web address] Albumin/Globul in Ratio 1.9 1.0 - 2.5 (calc) [employer] [place] [employer] Bilirubin, Total 0.4 0.2 - 1.2 mg/dL [employer] [place] [employer] [facility] Alkaline Phosphatase 77 35 - 144 U/L [employer] [place] [employer] AST 24 10 - 35 U/L [employer] [place] [employer] [facility] ALT 31 9 - 46 U/L [employer] [place] [employer] [facility] Blood Venous blood specimen / Unknown 05/10/2022 9:25 AM EST 05/10/2022 9:25 AM EST Narrative [facility] - 05/10/2022 9:11 PM EST FASTING:YES FASTING: YES Lauren [facility] BLOOD ORDERABLES Final Resu lt [facility] [address] [facility], [address], [place] [address] [facility] [address] [facility], ([address]) [place] [address] documented in this encounter Visit Diagnoses Diagnosis IFG (impaired fasting glucose)- Primary documented in this encounter Care Teams Director Employment Relationship Specialty Start Date End Date Gilmer Biggs FNP PCP - General Family Medicine 05/07/22 05/16/22 Gilmer Biggs FNP PCP - General Family Medicine 05/17/22 05/26/22 Jordan Hagen AGNP PCP - General Family Medicine 05/27/22 06/06/22 Lauren Morgan FNP [address] [place] [address] PCP - General Family Medicine 06/07/22 12/05/23 Nadira Ospina NP [address] [place] [address] PCP - General Family Medicine 12/06/23 documented as of this encounter
--- OUTSIDE RECORDS SUMMARY | 2024-06-01 17:09 | XMS_ITS ---
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 Generated for Alexander andrew/Bob/eTransmitting on:?06/01/2024 09:06 AM EST
--- OUTSIDE RECORDS SUMMARY | 2024-06-01 17:09 | XMS_ITS | Clinical Summary ---
Author Organization [employer] Address [address] [place] [address] 7t [place] [address] Care Team Providers Care Websphere Process Server Developer Name Role Phone Nadira Ospina NP Primary Care Provider [phone] Allergies No known active allergies Medications Multiple [...] topically 2 times daily. to affected area Active mineral oil-hydrophilic petrolatum (Aquaphor) ointment Apply [...] BEDTIME NEEDED FOR SPASMS 60 tablet 025 2024 Discontinued Active Problems Problem Noted Date [...] Encounters Date Type Department Care Team Description 06/01/2024 11:15 AM EST Office Visit [facility]INE [address] [place] [address] Cristal Neal NP Popliteal cyst, right (Primary Dx); Elevated blood pressure reading in office with diagnosis of hypertension 05/30/2024 Telephone [facility] [address] [place] [address] Nadira Ospina NP Nurse Triage 05/29/2024 Telephone [facility] [address] [place] [address] Nadira Ospina NP 05/17/2024 Refill [facility] [address] [place] [address] Nadira Ospina NP Chronic low back pain, unspecified back pain laterality, unspecified whether sciatica present 04/18/2024 Refill [facility] [address] [place] [address] Nadira Ospina NP Chronic low back pain, unspecified back pain laterality, unspecified whether sciatica present 04/16/2024 Telephone [facility] [address] [place] [address] Nadira Ospina NP Referral 04/11/2024 Telephone [facility] [address] [place] [address] Nadira Ospina NP Referral 03/14/2024 Refill [facility] [address] [place] [address] Nadira Ospina NP Chronic low back pain, unspecified back pain laterality, unspecified whether sciatica present from Last 3 Months Immunizations Name Administration [...] Sign Reading Time Taken Comments Blood Pressure 118/68 06/01/2024 12:01 PM EST Pulse 70 06/01/2024 12:01 PM EST Temperature 36.5 ??C (97.7 ??F) 06/01/2024 11:[address] Respiratory Rate 06/01/2024 11:16 AM EST Oxygen Saturation 98% 06/01/2024 11:16 AM EST Inhaled Oxygen Concentration - - Weight 62 kg (136 lb 9.6 oz) 06/01/2024 11:16 AM EST Height 175.3 cm (5' 9 ) 06/01/2024 11:16 AM EST Body Mass Index 20.17 06/01/2024 11:16 AM EST Plan of Treatment Health Maintenance Due Date Last Done Comments CT Colonography 1970 Colonoscopy 1970 FIT DNA/Cologuard 1970 FIT 1970 Sigmoidoscopy 1970 Diabetes: Foot Exam 1980 Eye Exam 1980 Diabetes: Urine Protein Screening 1989 Hepatitis B Vaccines (1 of 3 - 19+ 3-dose series) 1989 Diabetes: Hemoglobin A1C 11/07/2022 05/10/2022, 0611/2020 Lipid Panel 05/10/2023 05/10/2022, 0607/2020, 09/19/2020 Colorectal Cancer Screening 08/03/2023 FOBT 08/03/2023 COVID-19 Vaccine ( - season) 2023 09/12/2020, 08/15/2020 Zoster Vaccines (2 of 2) 12/08/2023 10/13/2023 Depression Screening 05/09/2024 05/09/2023, 02/05/20 24 Pneumococcal Vaccine: 50+ Years (2 of 2 - PCV) 10/12/2024 10/13/2023 Alcohol/Substance Use Screening 01/30/2025 01/31/2024 SDOH Screening 01/30/2025 01/31/2024 Tobacco Screening 06/01/2025 06/01/2024 DTaP/Tdap/Td Vaccines (2 - Td or Tdap) [...] PI, Integrase) (09/27/2022 8:32 AM EDT) Pathologist [facility] HIV 1 RNA, QN PCR NOT DETECTED copies/mL [facility], HIV 1 RNA, QN PCR NOT DETECTED Log copies/mL [facility], Comment: REFERENCE RANGE: NOT DETECTED copies/mL ?NOT DETECTED ??Log copies/mL This test was performed using Real-Time Polymerase Chain Reaction. Reportable range is 20 to 10,000,000 copies/mL (1.30-7.00 Log copies/mL). 09/27/2022 8:32 AM EDT 09/27/2022 8:33 AM EDT [facility] - 09/30/2022 7:15 PM EDT FASTING:NO FASTING: NO Lauren Morgan [facility] LAB BLOOD ORDERABLES Final Resu lt [facility] [address], [place] [address] [facility], [address] [place] [address] * Hepatitis C Antibody with Reflex to HCV, RNA, Quantitative, Real-Time PCR (09/27/2022 8:32 AM EDT) Pathologist [facility] Hepatitis C Antibody NON-REACT ANA MARÍA NON-REACT ANA MARÍA [email or web address] [facility] Comment: HCV antibody was non-reactive. There is no laboratory evidence of HCV infection. In most cases, no further action is required. However, if recent HCV exposure is suspected, a test for HCV RNA (test code 86361) is suggested. For additional information please refer to http://education.A[employer]arium Life Customs.XL Hybrids/faq/YJD05e0 (This link is being provided for informational/ educational purposes only.) Blood Venous blood specimen / Unknown 09/27/2022 8:32 AM EDT 09/27/2022 8:33 AM EDT Narrative [facility] - 09/30/2022 7:15 PM EDT FASTING:NO FASTING: NO Lauren Morgan [facility] BLOOD ORDERABLES Final Resu lt Performing Organization Address [facility] de Phone Number SATHISH [address], [facility] [place] [address] [email or web address] [place] [employer] [facility] [address] [place] [phone] * Hemoglobin A1c (05/10/2022 9:25 AM EST) [facility] Hemoglobin A1c 5.3 <5.7 % of total Hgb [email or web address] [place] [employer] Comment: For the purpose of screening for the presence of diabetes: <5.7% ? Consistent with the absence of diabetes 5.7-6.4% ?Consistent with increased risk for diabetes ?(prediabetes) > or =6.5% ??Consistent with diabetes This assay result is consistent with a decreased risk of diabetes. Currently, no consensus exists regarding use of hemoglobin A1c for diagnosis of diabetes in children. According to [place] Diabetes Association (ADA) guidelines, hemoglobin A1c <7.0% represents optimal control in non- diabetic patients. Different metrics may apply to specific patient populations. Standards of Medical Care in Diabetes(ADA). ?? Blood Venous blood specimen / Unknown 05/10/2022 9:25 AM EST 05/10/2022 9:25 AM EST Narrative [facility] - 05/10/2022 9:11 PM EST FASTING:YES FASTING: YES Lauren Go[employer] [facility] BLOOD ORDERABLES Final Resu lt Performing Organization Address [facility]/ZIP Co de Phone Number [address] [place] [address] [email or web address] [place] [employer] [address] [place] [address], ([address]2) [place] [address] * (ABNORMAL) Lipid Panel, Standard (05/10/2022 9:25 AM EST) [facility] Cholesterol, Total 187 <200 mg/dL [email or web address] [place] [employer] HDL Cholesterol 37(L) > OR = 40 mg/dL [email or web address] [place] [employer] Triglycerides 184(H) <150 mg/dL [email or web address] [place] [employer] [facility] LDL Cholesterol 119(H) mg/dL (calc) [email or web address] [place] [employer] Comment: Reference range: <100 Desirable range <100 mg/dL for primary prevention; ?? <70 mg/dL for patients with CHD or diabetic patients with > or = 2 CHD risk factors. LDL-C is now calculated using the Darek-Ann calculation, which is a validated novel method providing better accuracy than the Friedewald equation in the estimation of LDL-C. Adrek SS et al. JEANNE. 2013;310(19): 8977-9160 (http://education.Watermark Medical/faq/ROY571) Chol/HDLC Ratio 5.1(H) <5.0 (calc) [email or web address] [place] [employer] [facility] Non-HDL Cholesterol 150(H) <130 mg/dL (calc) [email or web address] [place] [employer] Comment: For patients with diabetes plus 1 major ASCVD risk factor, treating to a non-HDL-C goal of <100 mg/dL (LDL-C of <70 mg/dL) is considered a therapeutic option. Blood Venous blood specimen / Unknown 05/10/2022 9:25 AM EST 05/10/2022 9:25 AM EST Narrative [facility] - 05/10/2022 9:11 PM EST FASTING:YES FASTING: YES Lauren Morgan [facility] BLOOD ORDERABLES Final Resu lt [facility] 200 [facility], [place] [address] [email or web address] [place] [employer] [facility] [facility] 200 [facility], ([address]2) [place] [address] from Last 3 Months or Most Recently Relevant to Health Maintenance Insurance [facility] Care Teams Websphere Process Server Developer Relationship Specialty Start Date End Date Nadira Ospina NP [address] [place] [address] PCP - General Family Medicine 12/06/23
--- OUTSIDE RECORDS SUMMARY | 2024-06-01 17:09 | XMS_ITS | Encounter Summary ---
Author Organization [employer] Address [address] [place] [address] 7 [place] [address] Care Team Providers Care Software Developer Intern Name Role Phone Jordan Hagen Primary Care Provider Gilmer Mcadams Primary Care Provider Gilmer Bender Primary Care Provider Jordan Lacey Primary Care Provider Unavail Lauren Peterson Primary Care Provider + Nadira Ospina NP Primary Care Provider [phone] Reason for Visit * Reason Comments Med Refill Encounter Details Date Type Department Care Team (Late st Contact Info) Description 04/19/2022 Refill [facility] MED [facility] PEDS [address] [place], [place] [phone] Barry Ott MD [address] [place], [place] [phone] Herniation of intervertebral disc between L4 and [...] L5 documented in this encounter Care Teams Software Developer Intern Relationship Specialty Start Date End Date Jordan Hagen AGNP PCP - General Family Medicine 03/03/22 05/06/22 Gilmer Biggs FNP PCP - General Family Medicine 05/07/22 05/16/22 Gilmer Biggs FNP PCP - General Family Medicine 05/17/22 05/26/22 Jordan Hagen AGNP PCP - General Family Medicine 05/27/22 06/06/22 Lauren Morgan FNP [address] [place] [address] PCP - General Family Medicine 06/07/22 12/05/23 Nadira Ospina NP [address] [place] [address] PCP - General Family Medicine 12/06/23 documented as of this encounter
--- OUTSIDE RECORDS SUMMARY | 2024-06-01 17:10 | XMS_ITS | Encounter Summary ---
Author Organization [employer] Address [address] [place] [address] 7[address] [place] [address] Care Team Providers Care Lead Enterprise Architect Name Role Phone Lauren MorganP Primary Care Provider [phone] Nadira Ospina NP Primary Care Provider [phone] Reason for Visit * Reason Comments Med Change Request Encounter Details Date Type Department Care Team ([facility] st Contact Info) Description 09/02/2023 Refill [facility] MED[facility]INE [address] [place], [place] [phone] Lauren Morgan FNP [address] [place], [place] [phone] Social History Tobacco Use Types Packs/Day Years [...] documented as of this encounter Care Teams Lead Enterprise Architect Relationship Specialty Start Date End Date Lauren Morgan FNP [address] [place] [address] PCP - General Family Medicine 06/07/22 12/05/23 Nadira Ospina NP [address] [place] [address] PCP - General Family Medicine 12/06/23 documented as of this encounter
--- OUTSIDE RECORDS SUMMARY | 2024-06-01 17:10 | XMS_ITS | Encounter Summary ---
Author Organization [employer] Address [address] [facility] 7t [place] [address] Care Team Providers Care Gunner Mate Name Role Phone Lauren MorganP Primary Care Provider [phone] Nadira Ospina NP Primary Care Provider [phone] Reason for Visit * Reason Comments Med Change Request Encounter Details Date Type Department Care Team ([facility] st Contact Info) Description 03/26/2023 Refill [facility] MEDICINE [address] [place], [place] [phone] Lauren Morgan FNP [address] [place], [place] [phone] Herniation of intervertebral disc between L4 and [...] L5 documented in this encounter Care Teams Gunner Mate Relationship Specialty Start Date End Date Lauren Morgan FNP [address] [place] [address] PCP - General Family Medicine 06/07/22 12/05/23 Nadira Ospina NP [address] [place] [address] PCP - General Family Medicine 12/06/23 documented as of this encounter
--- OUTSIDE RECORDS SUMMARY | 2024-06-01 17:10 | XMS_ITS | Patient Health Record ---
Author Organization [facility] Address [address] [place] [address] Care Team Providers Care Supervisor Purification Name Role Phone Anai Nadira Primary Care Provider Jayden Negro Unavailable [phone] Reason For Referral No Information Encounters Encounter Location Date Provider Diagnosis [facility] [address] [place] [address] 04/18/2024 Jayden Rogers Plan Of Treatment Next Appt Details Provider Name:Jayden Rogers, 06/12/2024 09:30:00 AM, [address] [facility], [place], [address], Insurance Providers Payer Name Payer Address Payer Phone Subscriber Number Group Number Insured Name Patient Relationship to Insured Coverage Start Date Coverage End Date [facility] [employer] Claims [address] [place] [id number] Cristobal Menezes Self - patient is the insured
--- OUTSIDE RECORDS SUMMARY | 2024-06-01 17:10 | XMS_ITS | Encounter Summary ---
Author Organization [employer] Address [address] [place] [address] 7t [place] [address] Care Team Providers Care Tooth Clerk Name Role Phone Lauren MorganP Primary Care Provider [phone] Nadira Ospina NP Primary Care Provider [phone] Reason for Visit * Reason Comments Med Refill Encounter Details Date Type Department Care Team (Late st Contact Info) Description 08/20/2023 Refill [facility] MEDICINE [address] [place], [place] [phone] Lauren Morgan FNP [address] [place], [place] [phone] Vitamin D deficiency Social History Tobacco Use [...] documented as of this encounter Care Teams Tooth Clerk Relationship Specialty Start Date End Date Lauren Morgan FNP [address] [place] [address] PCP - General Family Medicine 06/07/22 12/05/23 Nadira Ospina NP [address] [place] [address] PCP - General Family Medicine 12/06/23 documented as of this encounter
--- OUTSIDE RECORDS SUMMARY | 2024-06-01 17:10 | XMS_ITS | Encounter Summary ---
Author Organization [employer] Address [address] [facility] 7t [place] [address] Care Team Providers Care Journeyman Millwright Name Role Phone Lauren MorganP Primary Care Provider [phone] Nadira Ospina NP Primary Care Provider Reason for Visit * Reason Comments Med Refill Encounter Details Date Type Department Care Team (Late st Contact Info) Description 04/12/2023 Refill [facility] MEDICINE [address] [place], [place] [phone] Lauren Morgan FNP [address] [place], [place] [phone] Vitamin D deficiency Social History Tobacco Use [...] deficiency documented in this encounter Care Teams Journeyman Millwright Relationship Specialty Start Date End Date Lauren Morgan FNP [address] [place] [address] PCP - General Family Medicine 06/07/22 12/05/23 Nadira Ospina NP [address] [place] [address] PCP - General Family Medicine 12/06/23 documented as of this encounter
--- OUTSIDE RECORDS SUMMARY | 2024-06-01 17:10 | XMS_ITS | Encounter Summary ---
Author Organization [employer] Address [address] [place] [address] 7t [place] [address] Care Team Providers Care Size Roller Operator Name Role Phone Lauren Morgan CAN OPERATOR Primary Care Provider [phone] Nadira Ospina CHILDCARE TEACHER Primary Care Provider [phone] Reason for Visit * Reason Comments Med Refill Encounter Details Date Type Department Care Team (Late st Contact Info) Description 08/30/2023 Refill [facility] MEDICINE [address] [place], [place] [phone] [facility] [address] [place], [place] [phone] Herniation of intervertebral disc between L4 and [...] documented as of this encounter Care Teams Size Roller Operator Relationship Specialty Start Date End Date Lauren Morgan FNP [address] [place] [address] PCP - General Family Medicine 06/07/22 12/05/23 Nadira Ospina NP [address] [place] [address] PCP - General Family Medicine 12/06/23 documented as of this encounter
--- OUTSIDE RECORDS SUMMARY | 2024-06-01 17:10 | XMS_ITS | Encounter Summary ---
Author Organization [employer] Address [address] [facility] 7t [place] [address] Care Team Providers Care Supervisor Sulfuric Acid Plant Name Role Phone Lauren MorganP Primary Care Provider [phone] Nadira Ospina NP Primary Care Provider [phone] Reason for Visit * Reason Onset Date Comments Nurse Triage 02/22/2023 Encounter Details Date Type Department Care Team ([facility] st Contact Info) Description 02/22/2023 Telephone [facility] MEDICINE [address] [place], [place] [phone] Lauren Morgan FNP [address] [place], [place] [phone] Nurse Triage Social History Tobacco Use Types [...] drainage, fever. Advised Pt to come to [facility] today, open until 8pm. Pt agrees with [...] on filedocumented in this encounter Care Teams Supervisor Sulfuric Acid Plant Relationship Specialty Start Date End Date Lauren Morgan FNP [address] [place] [address] PCP - General Family Medicine 06/07/22 12/05/23 Nadira Ospina NP [address] [place] [address] PCP - General Family Medicine 12/06/23 documented as of this encounter
--- OUTSIDE RECORDS SUMMARY | 2024-06-01 17:10 | XMS_ITS | Encounter Summary ---
Author Organization [employer] Address [address] [facility] 7t [place] [address] Care Team Providers Care Blow Down Operator Name Role Phone Nadira Ospina NP Primary Care Provider Encounter Details Date Type Department Care Team (Late st Contact Info) Description 05/29/2024 Telephone [facility] MEDICINE [address] [place] [address] Nadira Ospina NP [address] [place], [place] [phone] Social History Tobacco Use Types Packs/Day Years [...] documented as of this encounter Care Teams Blow Down Operator Relationship Specialty Start Date End Date Nadira Ospina NP [address] [place] [address] PCP - General Family Medicine 12/06/23 documented as of this encounter
--- OUTSIDE RECORDS SUMMARY | 2024-06-01 17:10 | XMS_ITS | Encounter Summary ---
Author Organization [employer] Address [address] [facility] 7t [place] [address] Care Team Providers Care Photo Finisher Name Role Phone Nadira Ospina NP Primary Care Provider [phone] Reason for Visit * Reason Comments Med Refill Encounter Details Date Type Department Care Team ([facility] st Contact Info) Description 05/17/2024 Refill [facility] MEDICINE [address] [place], [place] [phone] Nadira Ospina NP [address] [place], [place] [phone] Chronic low back pain, unspecified back pain [...] documented as of this encounter Care Teams Photo Finisher Relationship Specialty Start Date End Date Nadira Ospina NP [address] [place] [address] PCP - General Family Medicine 12/06/23 documented as of this encounter
--- OUTSIDE RECORDS SUMMARY | 2024-06-01 17:10 | XMS_ITS | Encounter Summary ---
Author Organization [employer] Address [address] [place] [address] 7t [place] [address] Care Team Providers Care Pharmacognosist Name Role Phone Lauren MorganP Primary Care Provider [phone] Nadira Ospina NP Primary Care Provider [phone] Reason for Visit * Reason Onset Date Comments Med Refill 08/31/2023 Encounter Details Date Type Department Care Team (Late st Contact Info) Description 08/31/[address] [facility] MEDICINE [address] [place], [place] [phone] Lauren Morgan FNP [address] [place], [place] [phone] Chronic low back pain, unspecified back pain [...] documented as of this encounter Care Teams Pharmacognosist Relationship Specialty Start Date End Date Lauren Morgan FNP [address] [place] [address] PCP - General Family Medicine 06/07/22 12/05/23 Nadira Ospina NP [address] [place] [address] PCP - General Family Medicine 12/06/23 documented as of this encounter
--- OUTSIDE RECORDS SUMMARY | 2024-06-01 17:10 | XMS_ITS | Encounter Summary ---
Author Organization [employer] Address [address] [place] [address] 7t [place] [address] Care Team Providers Care Blending Technician Name Role Phone Lauren MorganP Primary Care Provider [phone] Nadira Ospina NP Primary Care Provider [phone] Reason for Visit * Reason Comments Med Refill Encounter Details Date Type Department Care Team (Late st Contact Info) Description 08/30/2023 Refill [facility] MEDICINE [address] [place], [place] [phone] Lauren Morgan FNP [address] [place], [place] [phone] Vitamin D deficiency Social History Tobacco Use [...] documented as of this encounter Care Teams Blending Technician Relationship Specialty Start Date End Date Lauren Morgan FNP [address] [place] [address] PCP - General Family Medicine 06/07/22 12/05/23 Nadira Ospina NP [address] [place] [address] PCP - General Family Medicine 12/06/23 documented as of this encounter
--- OUTSIDE RECORDS SUMMARY | 2024-06-01 17:10 | XMS_ITS | Encounter Summary ---
Author Organization [employer] Address [address] [place] [address] 7t [place] [address] Care Team Providers Care Architecture Manager Name Role Phone Nadira Ospina NP Primary Care Provider [phone] Reason for Referral * Consultation (Routine) - Closed Specialty Diagnoses / Procedures Referred By Contadali t Referred To Contact Orthopaedic Surgery Diagnoses Popliteal cyst, right Cristal Neal NP [address] [place] [address] Phone: tel: fax: Valentín Alejandro MD [address] [place] [address] Phone: tel: fax: Referral ID Status Reason Start Date Expiration Date V isits Requested Visits Authorized [id number] Closed Specialty Services Required 06/01/2024 06/01/2025 1 1 Reason for Visit * Reason Comments sick onsite Encounter Details Date Type Department Care Team (Late st Contact Info) Description 06/01/2024 11:15 AM EST Office Visit [facility] MEDICINE [address] [place], [place] [phone] Cristal Neal NP [address] [place], [place] [phone] Popliteal cyst, right (Primary Dx); Elevated blood pressure reading in office with diagnosis of hypertension Social History Tobacco Use Types Packs/Day Years [...] AM EDT documented as of this encounter Last Filed Vital Signs Vital Sign Reading [...] Mass Index 20.17 06/01/2024 11:16 AM EST documented in this encounter Progress Notes * Cristal Neal NP - 06/01/2024 11:15 AM EST Images from the original note were not included. Subjective Patient ID: Cristobal Menezes presents to office for ED follow-up. HPI Cristobal Menezes states he was seen at [facility] ED about 3 days ago with joint complaints. States his main reason for coming here today, however, is r/t a mass behind his right knee that has been verypainful and limiting his normal daily function. Reports pain 7/10 at the site with full extension and flexion of his knee. States he was rx'ed ibuprofen 600 mg in the ED which he takes about 3 times per day. He also has gabapentin, cyclobenzaprine, and nabumetone previously rx'ed to him which he has been taking as well. For the pain. He is interested in surgical interventions and is seeking a referral. Medications were reconciled Patient Active Problem List Diagnosis Abnormal MRI, thoracic spine Adult attention deficit hyperactivity disorder Chronic low back pain IFG (impaired fasting glucose) Knee pain Herniation of intervertebral disc between L5 and S1 Post-traumatic osteoarthritis of both knees Traumatic brain injury ([facility]/HCC) Varicose veins of lower extremity Cervicalgia Convulsions (CMS/HCC) Excessive falling Osteoarthritis of knee Bipolar disorder (CMS/HCC) History of total left knee replacement (TKR) Muscle spasticity Conductive hearing loss of left ear Speech delay Pain in both hands Hyperlipidemia Hypertension Encounter for screening for malignant neoplasm of colon Flexural atopic dermatitis 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 topically 2 times daily. to affected area mineral oil-hydrophilic petrolatum (Aquaphor) ointment Apply topically if needed for dry skin. 396 g 1 Multiple Vitamins-Minerals (Mens Daily Formula/Lycopene) capsule Take 1 capsule by mouth in the morning. nabumetone (Relafen) 750 MG tablet TAKE 1 TABLET BY MOUTH TWICE A DAY 180 tablet 3 omega-3 (fish oil) 1000 MG capsule TAKE 1 CAPSULE (1,000 MG) BY MOUTH 2 TIMES DAILY. (Patient taking differently: Take 1 capsule by mouth Once per day.) 180 capsule 2 rosuvastatin (Crestor) 10 MG tablet TAKE 1 TABLET BY MOUTH EVERY DAY 90 tablet 3 No current facility-administered medications on file prior to visit. No past surgical history on file. Past Medical History: Diagnosis Date Hypertension Substance abuse ([facility]) TBI (traumatic brain injury) ([facility]) reports that he has quit smoking. His smoking use included cigarettes. He has never used smokeless tobacco. He reports that he does not currently use drugs after having used the following drugs: Marijuana. He reports that he does not drink alcohol. Review of Systems Constitutional: Negative. Negative for chills and fever. HENT: Negative. Negative for congestion and sore throat. Eyes: Negative for discharge. Respiratory: Negative for cough, chest tightness and shortness of breath. Cardiovascular: Negative for chest pain and palpitations. Gastrointestinal: Negative. Negative for abdominal pain, constipation, diarrhea and nausea. Genitourinary: Negative. Negative for difficulty urinating. Musculoskeletal: Positive for arthralgias. Negative for myalgias. Skin: Negative for rash. Neurological: Negative. Negative for dizziness, speech difficulty, light- headedness and headaches. Hematological: Negative. Psychiatric/Behavioral: Negative for behavioral problems, self-injury and suicidal ideas. The patient is not nervous/anxious. Objective Vitals: 06/01/24 1116 06/01/24 1201 BP: (!) 152/92 118/68 BP Location: Left arm Left arm Patient Position: Sitting Sitting BP Cuff Size: Adult Adult Pulse: (!) 112 70 Resp: (!) 28 Temp: 97.7 ??F (36.5 ??C) TempSrc: Temporal SpO2: 98% Weight: 136 lb 9.6 oz (62 kg) Height: 5' 9 (1.753 m) Physical Exam Vitals reviewed. Constitutional: General: He is not in acute distress. Appearance: Normal appearance. He is not ill-appearing. HENT: Head: Normocephalic and atraumatic. Right Ear: External ear normal. Left Ear: External ear normal. Nose: Nose normal. Eyes: General: No scleral icterus. Extraocular Movements: Extraocular movements intact. Pulmonary: Effort: Pulmonary effort is normal. No respiratory distress. Musculoskeletal: General: Normal range of motion. Cervical back: Normal range of motion. Right knee: Deformity present. No erythema. Normal range of motion. No tenderness. Legs: Comments: About 4 cm firm mass noted in right popliteal region Neurological: General: No focal deficit present. Mental Status: He is alert and oriented to person, place, and time. Gait: Gait abnormal (uses 4 leg cane). Psychiatric: Mood and Affect: Mood normal. Behavior: Behavior normal. Assessment/Plan Diagnoses and all orders for this visit: Popliteal cyst, right Comments: -patient is established with [facility] ortho and sees Dr. Alejandro. He is encouraged to call the office for an appointment -referral placed per patient request -he is advised to discontinue ibuprofen as he is using nabumetone 750 two times daily and find thatmore helpful. Advised tylenol 1g q6h as needed for breakthrough pain -advised warm/cold compress -ED precautions reviewed Orders: - Referral to Orthopaedic Surgery; Future Elevated blood pressure reading in office with diagnosis of hypertension Comments: -repeat BP with in acceptable range -continued med compliance, low salt/low fat diet encouraged. continue daily exercise and monitoring documented in this encounter Plan of Treatment Scheduled Referrals Name Type Priority Associated Diagnoses Order Schedule Referral to Orthopaedic Surgery Outpatient Referral Routine Popliteal cyst, right Expected: 06/01/2024 (Approximate), Expires: 06/01/2025 documented as of this encounter Visit Diagnoses Diagnosis Popliteal cyst, right- Primary Elevated blood pressure reading in office with diagnosis of hypertension documented in this encounter Additional Health Concerns Assessment Noted Time PHQ-9 Depression Total Score: 3 05/09/19 24 10:30 AM EST documented as of this encounter Care Teams Architecture Manager Relationship Specialty Start Date End Date Nadira Ospina NP [address] [place] [address] [place] [address] PCP - General Family Medicine 12/06/23 documented as of this encounter
--- OUTSIDE RECORDS SUMMARY | 2024-06-01 17:10 | XMS_ITS | Encounter Summary ---
Author Organization [employer] Address [address] [facility] 7t [place] [address] Care Team Providers Care Halal Meat Packer Name Role Phone Nadira Ospina NP Primary Care Provider [phone] Reason for Visit * Reason Onset Date Comments Nurse Triage 05/30/2024 Encounter Details Date Type Department Care Team ([facility] st Contact Info) Description 05/30/2024 Telephone [facility] MEDICINE [address] [place], [place] [phone] Nadira Ospina NP [address] [place], [place] [phone] Nurse Triage Social History Tobacco Use Types [...] encounter Miscellaneous Notes * Telephone Encounter - Arely Briceno RN - 05/30/2024 11:28 AM EST Incoming call from pateint returning below call. Reports was instructed by ER for PCP follow up to have referral fo rpossible drainage or surgical removal of cyst. Pt would like to have surgical consult. Pt states still having pain today. Keep leg elevated on a pillow and using ibuprofen PRN for pain. Pt advised of disposition, agrees to sick onsite with team provider this week for follow up . Reviewed home care advise, ER precautions and reasons to call back. Protocol Used: Knee Injury (Adult) Protocol-Based Disposition: See in Office or Video Visit within 3 Days Future Appointments Date Time Provider Department Center 06/01/2024 11:15 AM Cristal Neal NP MEDICINE [facility] Insurance verified as active per Real Time Eligibility in [facility]. Video visit offer not recorded Positive Triage Question: * Injury and pain has not improved after 3 days * All higher-acuity triage questions were negative Care Advice Discussed: * Use Heat on Area After 48 Hours * Rest vs. Movement * Reasons To Call Back - Pain becomes severe - You become worse * Telephone Encounter - Arely Briceno RN - 05/30/2024 11:08 AM EST Per [facility], pt seen on 05/28/24 following fall. US shows Hart;s Cyst 5mm. R knee x-ray shows No acute fracture or dislocation. Chondrocalcinosis. Mild medial compartment predominant degenerative change. No focal soft tissue swelling or joint effusion . Pt discharge dx of Acute pain of right knee - Primary Synovial cyst of left popliteal space Hart's cyst of knee, right Pt given Rx for ibuprofen 600mg PO Q6H PRN for pain x 10 days #30. Call returned to Cristobal Menezes for triage below. No answer LVM to return call to [facility] triage line [phone]. * Telephone Encounter - Tomeka Vazquez - 05/30/2024 11:00 AM EST Patient calling to report ED visit on : Date: 05/28 Hospital: [facility] Seen for: Fall Symptomatic Yes (pain behind knee) *if yes message should go to Triage Patient advised will forward to team nurse for follow up [phone] documented in this encounter Plan of Treatment Not on file documented as of this encounter Visit Diagnoses Not on filedocumented in this encounter Additional Health Concerns Assessment Noted Time PHQ-9 Depression Total Score: 3 05/09/19 24 10:30 AM EST documented as of this encounter Care Teams Halal Meat Packer Relationship Specialty Start Date End Date Nadira Ospina NP [address] [place] [address] PCP - General Family Medicine 12/06/23 documented as of this encounter
--- OUTSIDE RECORDS SUMMARY | 2024-06-01 17:10 | XMS_ITS | Clinical Summary ---
Author Organization [facility] Address [address] [place] [address] Phone Care Team Providers Care Manager Of Compliance Name Role Phone Nadira Ospina IRLANDA Primary Care Provider [phone] Allergies No known active allergies Medications ibuprofen (ADVIL,MOTRIN) 600 mg tablet Take 1 tablet (600 mg total) by mouth every 6 (six) hours if needed for mild pain for up to 10 days. 30 tablet 05/28/2024 Active Encounters Date Type Department Care Team Description 05/28/2024 7:57 AM EST - 05/28/2024 11:27 AM EST Emergency [facility] Emergency [address] [place] [address] Acute pain of right knee (Primary Dx); Synovial cyst of left popliteal space; Hart's cyst of knee, right Discharge Disposition: Home or Self Care from Last 3 Months Social History Tobacco Use Types Packs/Day Years Used Date Smoking Tobacco: Never Smokeless Tobacco: Never Tobacco Cessation:Counseling Given: Not Answered Sex and Gender Information Value Date Recorded Sex Assigned at Male 05/28/2024 8:12 AM EST Legal Sex Male 1:04 AM EST Gender Identity Male 05/28/2024 8:12 AM EST Sexual Orientation Straight 05/28/2024 8: 12 AM EST Obstetrics History Last Filed Vital Signs Vital Sign Reading Time Taken Comments Blood Pressure 125/93 05/28/2024 4:23 AM EST Pulse 110 05/28/2024 4:23 AM EST Temperature 36.3 ??C (97.3 ??F) 05/28/2024 4:23 AM ES T Respiratory Rate 18 05/28/2024 4:23 AM EST Oxygen Saturation 100% 05/28/2024 4:23 AM EST Inhaled Oxygen Concentration - - Weight 64.6 kg (142 lb 8 oz) 05/28/2024 4:23 AM EST Height 175.3 cm (5' 9 ) 05/28/2024 4:23 AM EST Body Mass Index 21.04 05/28/2024 4:23 AM EST Plan of Treatment Health Maintenance Due Date Last Done Comments Diabetes: Annual GFR (Glomerular Filtration Rate) 1970 Diabetes: Annual Foot Exam 1980 Diabetes: Annual Retina Eye Exam 1980 Hepatitis B Vaccines (1 of 3 - 19+ 3-dose series) 1989 Colorectal Cancer Screening: Colonoscopy 11/28/2023 HIV Screening 11/28/2023 Medicare Annual Wellness Visit 11/28/2023 Social Influencers of Health Screening 11/28/2023 COVID-19 Vaccine ( season) 2023 09/12/2020, 08/15/2020 Zoster Vaccines (2 of 2) 12/08/2023 10/13/2023 Depression Screening 05/09/2024 05/09/2023 Diabetes: Annual Urine Albumin-Creatinine Ratio (uACR) 05/28/2024 Diabetes: Blood Sugar Control Test (HGBA1C) 05/28/2024 05/10/2022 Hypertension/CHF/CAD Annual BMP Blood Test 05/28/2024 Pneumococcal Vaccine: 50+ Years (2 of 2 - PCV) 10/12/2024 10/13/2023 Cholesterol Screening (Lipid Panel) 05/10/2027 05/10/2022 DTaP,Tdap,and Td Vaccines (2 - Td or Tdap) 10/12/2033 10/13/2023 Hepatitis C Screening Completed 09/27/2022 Pneumococcal Vaccine: Pediatrics (0 to 5 Years) and At-Risk Patients (6 to 64 Years) Aged Out 10/13/2023 No longer eligible based on patient's age to complete this topic Influenza Vaccine Completed 01/31/2024, , 01/31/2020, Additional [...] patient's age to complete this topic Meningococcal B Vacine Aged Out No lo nger eligible based on patient's age to complete this topic RSV Immunization Patients Under 20 months Aged Out No longer eligible based on patient's age to complete this topic Varicella Vaccines Aged Out No longer eligible based on patient's age to complete this topic Procedures Procedure Name Priority Date/Time Associated Diagnosis Comments VAS US DUPLEX LOWER EXT VENOUS RIGHT STAT 05/28/2024 11:00 AM EST Acute pain of right knee XR KNEE 4+ VIEWS RIGHT STAT 05/28/2024 4:40 AM EST XR SHOULDER 2+ VIEWS LEFT STAT 05/28/2024 4:39 AM EST from Last 3 Months Results * Vascular US duplex lower extremity venous right (05/28/2024 11:00 AM EST) Anatomical Region Laterality Modality Vascular, Abdomen Ultrasound 05/28/2024 11:2 1 AM EST Impressions 05/28/2024 11:21 AM EST NO RIGHT LOWER EXTREMITY DEEP VENOUS THROMBOSIS. -------- FINAL REPORT -------- Dictated By: DOMINGUEZ VANG Dictated Date: 05/28/2024 11:21 ET Assigned Physician: DOMINGUEZ VANG Reviewed and Electronically Signed By: DOMINGUEZ VANG Signed Date: 05/28/2024 11:21 ET Workstation ID: [id number] Transcribed By: Self Edit Transcribed Date: 05/28/2024 11:21 ET Narrative 05/28/2024 11:21 AM EST PROCEDURE: VAS US DUPLEX LOWER EXT VENOUS RIGHT INDICATION: Pain, edema TECHNIQUE: 2-D and color Doppler imaging of the right lower extremity venous vasculature with compression and augmentation maneuvers. COMPARISON: No priors available. FINDINGS: There is normal flow, compression, and augmentation from the common femoral through the popliteal vein. Visualized calf veins are patent. ??5 cm Hart's cyst. Procedure Note Dominguez Vang MD - 05/28/2024 PROCEDURE: VAS US DUPLEX LOWER EXT VENOUS RIGHT INDICATION: Pain, edema TECHNIQUE: 2-D and color Doppler imaging of the right lower extremityvenous vasculature with compression and augmentation maneuvers. COMPARISON: No priors available. FINDINGS: There is normal flow, compression, and augmentation from the commonfemoral through the popliteal vein. Visualized calf veins are patent. 5cm Hart's cyst. IMPRESSION: NO RIGHT LOWER EXTREMITY DEEP VENOUS THROMBOSIS. -------- FINAL REPORT -------- Dictated By: DOMINGUEZ VANG Dictated Date: 05/28/2024 11:21 ET Assigned Physician: DOMINGUEZ VANG Reviewed and Electronically Signed By: DOMINGUEZ VANG Signed Date: 05/28/2024 11:21 ET Workstation ID: [id number] Transcribed By: Self Edit Transcribed Date: 05/28/2024 11:21 ET us Claire COHEN CV VASCULAR PROCEDURES Final Result * XR Knee 4+ Views Right (05/28/2024 4:40 AM EST) Anatomical Region Laterality Modality Lower Extremities, Knee Right [facility] 05/28/2024 8:36 AM EST Impressions 05/28/2024 8:51 AM EST FINDINGS/IMPRESSION: No acute fracture or dislocation. ??Chondrocalcinosis. ??Mild medial compartment predominant degenerative change. ??No focal soft tissue swelling or joint effusion. -------- FINAL REPORT -------- Dictated By: DOMINGUEZ VANG Dictated Date: 05/28/2024 08:36 ET Assigned Physician: DOMINGUEZ VANG Reviewed and Electronically Signed By: DOMINGUEZ VANG Signed Date: 05/28/2024 08:51 ET Workstation ID: [id number] Transcribed By: Self Edit Transcribed Date: 05/28/2024 08:36 ET Narrative 05/28/2024 8:51 AM EST XR KNEE 4+ VIEWS RIGHT INDICATION: ??Pain TECHNIQUE: XR KNEE 4+ VIEWS RIGHT COMPARISON: No priors available. Procedure Note Dominguez Vang MD - 05/28/2024 XR KNEE 4+ VIEWS RIGHT INDICATION: Pain TECHNIQUE: XR KNEE 4+ VIEWS RIGHT COMPARISON: No priors available. IMPRESSION: FINDINGS/IMPRESSION: No acute fracture or dislocation. Chondrocalcinosis.Mild medial compartment predominant degenerative change. No focal softtissue swelling or joint effusion. -------- FINAL REPORT -------- Dictated By: DOMINGUEZ VANG Dictated Date: 05/28/2024 08:36 ET Assigned Physician: DOMINGUEZ VANG Reviewed and Electronically Signed By: DOMINGUEZ VANG Signed Date: 05/28/2024 08:51 ET Workstation ID: [id number] Transcribed By: Self Edit Transcribed Date: 05/28/2024 08:36 ET us Scot Julien Estrada MD IMG XR PROCEDURES Final Result * XR Shoulder 2+ Views Left (05/28/2024 4:39 AM EST) Anatomical Region Laterality Modality Upper Extremities, Shoulder Left Radi ographic Imaging 05/28/2024 8:49 AM EST Impressions 05/28/2024 8:50 AM EST FINDINGS/IMPRESSION: No acute fracture or dislocation. ??Rotator cuff calcific tendinosis. ??Mild degenerative changes at the acromioclavicular joint. ??No focal soft tissue swelling. -------- FINAL REPORT -------- Dictated By: DOMINGUEZ VANG Dictated Date: 05/28/2024 08:49 ET Assigned Physician: DOMINGUEZ VANG Reviewed and Electronically Signed By: DOMINGUEZ VANG Signed Date: 05/28/2024 08:50 ET Workstation ID: [id number] Transcribed By: Self Edit Transcribed Date: 05/28/2024 08:49 ET Narrative 05/28/2024 8:50 AM EST XR SHOULDER 2+ VIEWS LEFT INDICATION: ??Pain TECHNIQUE: XR SHOULDER 2+ VIEWS LEFT COMPARISON: No priors available. Procedure Note Dominguez Vang MD - 05/28/2024 XR SHOULDER 2+ VIEWS LEFT INDICATION: Pain TECHNIQUE: XR SHOULDER 2+ VIEWS LEFT COMPARISON: No priors available. IMPRESSION: FINDINGS/IMPRESSION: No acute fracture or dislocation. Rotator cuffcalcific tendinosis. Mild degenerative changes at the acromioclavicularjoint. No focal soft tissue swelling. -------- FINAL REPORT -------- Dictated By: DOMINGUEZ VANG Dictated Date: 05/28/2024 08:49 ET Assigned Physician: DOMINGUEZ VANG Reviewed and Electronically Signed By: DOMINGUEZ VANG Signed Date: 05/28/2024 08:50 ET Workstation ID: [id number] Transcribed By: Self Edit Transcribed Date: 05/28/2024 08:49 ET Alvaro Estrada MD IMG XR PROCEDURES Final Result from Last 3 Months Insurance [facility] Member Subscriber Plan / Payer (Ef fective 2024-Present) Name:Cristobal Menezes Relation to Subscriber:Self Name:Cristobal Menezes Payer ID:[id number] Group ID:Not on file Type:Not on file Address: [place] [address] [address] [id number] Care Teams Manager Of Compliance Relationship Specialty Start Date End Date Nadira Ospina FNP [address] [place] [address] PCP - General Nurse Practitioner 05/28/24
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
--- OUTSIDE RECORDS SUMMARY | 2024-06-01 17:10 | XMS_ITS | Encounter Summary ---
Author Organization [employer] Address [address] [facility] [address] [place] [address] Care Team Providers Care Shipfitter Helper Name Role Phone Lauren Morgan Primary Care Provider [phone] Nadira Ospina NP Primary Care Provider [phone] Encounter Details Date Type Department Care Team (Late st Contact Info) Description 09/02/2023 Orders Only [facility] [address] [place], [place] [phone] Lauren Morgan FNP [address] [place], [place] [phone] Social History Tobacco Use Types Packs/Day Years [...] documented as of this encounter Care Teams Shipfitter Helper Relationship Specialty Start Date End Date Lauren Morgan FNP [address] [place] [address] PCP - General Family Medicine 06/07/22 12/05/23 Nadira Ospina NP [address] [place] [address] PCP - General Family Medicine 12/06/23 documented as of this encounter
== END 2024-06-01 15:03 | disposition home or self-care (01) ==
LOC: HO.HOS 14:59
DX: R20.0 Anesthesia of skin (principal); R20.2 Paresthesia of skin
CPT/HCPCS: 98012

== ENCOUNTER 2024-07-03 07:34 | Outpatient (AMB) | payer OTHER, SELFPAY ==
--- OUTSIDE RECORDS SUMMARY | 2024-07-03 07:37 | XMS_ITS | Encounter Summary ---
Author Organization [employer] Address [address] [facility] 7t [place] [address] Care Team Providers Care Boat Worker Name Role Phone Lauren MorganP Primary Care Provider [phone] Nadira Ospina NP Primary Care Provider [phone] Reason for Visit * Reason Comments Med Refill Encounter Details Date Type Department Care Team (Late st Contact Info) Description 04/12/2023 Refill [facility] [address] [place], [place] [phone] Lauren Morgan FNP [address] [place], [place] [phone] Vitamin D deficiency Social History Tobacco Use [...] deficiency documented in this encounter Care Teams Boat Worker Relationship Specialty Start Date End Date Lauren Morgan FNP [address] [place] [address] PCP - General Family Medicine 06/07/22 12/05/23 Nadira Ospina NP [address] [place] [address] PCP - General Family Medicine 12/06/23 documented as of this encounter
--- OUTSIDE RECORDS SUMMARY | 2024-07-03 07:37 | XMS_ITS | Encounter Summary ---
Author Organization [employer] Address [address] [place] [address] 7 [place] [address] Care Team Providers Care Threading Machine Operator Name Role Phone Jordan Hagen Primary Care Provider Gilmer Mcadams Primary Care Provider Gilmer Bender Primary Care Provider Jordan Lacey Primary Care Provider Unavail Lauren Peterson Primary Care Provider + Nadira Ospina NP Primary Care Provider [phone] Reason for Visit * Reason Comments Med Refill Encounter Details Date Type Department Care Team (Late st Contact Info) Description 04/19/2022 Refill [facility] & PEDS [address] [place], [place] [phone] Barry Ott MD [address] [place], [place] [phone] Herniation of intervertebral disc between L4 and [...] L5 documented in this encounter Care Teams Threading Machine Operator Relationship Specialty Start Date End Date Jordan Hagen AGNP PCP - General Family Medicine 03/03/22 05/06/22 Gilmer Biggs FNP PCP - General Family Medicine 05/07/22 05/16/22 Gilmer Biggs FNP PCP - General Family Medicine 05/17/22 05/26/22 Jordan Hagen AGNP PCP - General Family Medicine 05/27/22 06/06/22 Lauren Morgan FNP [address] [place] [address] PCP - General Family Medicine 06/07/22 12/05/23 Nadira Ospina NP [address] [place] [address] PCP - General Family Medicine 12/06/23 documented as of this encounter
--- OUTSIDE RECORDS SUMMARY | 2024-07-03 07:37 | XMS_ITS ---
Author Organization [facility] Address [address] [place] [address] Care Team Providers Care Cut Plug Packer Name Role Phone Nadira Ospina Primary Care Provider Jayden Negro [phone] REASON FOR VISIT DATA SERVICES DEVELOPER Encounters Encounter Location Date Provider Diagnosis [facility] [address] [place] [address] 04/18/2024 Jayden Rogers Plan Of Treatment No Information Progress Notes * Cristobal WATKINSDOB:1970 (53 yo M)Acc No.[id number]:04/18/2024 Patient:?Cristobal WATKINS :1970???Age:53 Y???Sex:Male Address:[address] [place] [address], [place], [place], [address] * true * Date:? Generated for Printi ng/Fakeyshag/eTransmitting on:?07/03/2024 07:37 AM EDT
--- OUTSIDE RECORDS SUMMARY | 2024-07-03 07:37 | XMS_ITS | Clinical Summary ---
Author Organization [employer] Address [address] [place] [address] 7t [place] [address] Care Team Providers Care Water Pollution Control Inspector Name Role Phone Nadira Ospina NP Primary Care Provider [phone] Allergies No known active allergies Medications Multiple [...] Encounters Date Type Department Care Team Description 06/16/2024 Refill [facility] [address] [place] [address] Nadira Ospina NP Chronic low back pain, unspecified back pain laterality, unspecified whether sciatica present 06/04/2024 Telephone [facility] [address] [place] [phone] Nadira Ospina NP Referral 06/01/2024 11:15 AM EST Office Visit [facility] [address] [place] [address] Cristal Neal NP Popliteal cyst, right (Primary Dx); Elevated blood pressure reading in office with diagnosis of hypertension 05/30/2024 Telephone [facility] [address] [place] [address] Nadira Ospina NP Nurse Triage 05/29/2024 Telephone [facility] [address] [place] [address] Nadira Ospina NP 05/17/2024 Refill [facility] [address] [place] [address] Nadira Ospina NP Chronic low back pain, unspecified back pain laterality, unspecified whether sciatica present 04/18/2024 Refill [facility] [address] [place] [address] Nadira Ospina NP Chronic low back pain, unspecified back pain laterality, unspecified whether sciatica present 04/16/2024 Telephone [facility] [address] [place] [address] Nadira Ospina NP Referral 04/11/2024 Telephone [facility] [address] [place], [place] [phone] Nadira Ospina NP Referral from Last 3 Months Immunizations Name Administration [...] 06/01/2024 11:[address] Respiratory Rate 28 06/01/2024 11:16 AM EST Oxygen Saturation 98% [...] 12/08/2023 10/13/2023 Depression Screening 05/09/2024 05/09/2023, 05/09/19 Pneumococcal Vaccine: 50+ Years (2 of 2 [...] (RTI, PI, Integrase) (09/27/2022 8:32 AM EDT) HIV 1 RNA, QN PCR NOT DETECTED copies/mL [facility], HIV 1 RNA, QN PCR NOT DETECTED Log copies/mL [facility], Comment: REFERENCE RANGE: NOT DETECTED copies/mL ?NOT DETECTED ??Log copies/mL This test was performed using Real-Time Polymerase Chain Reaction. Reportable range is 20 to 10,000,000 copies/mL (1.30-7.00 Log copies/mL). 09/27/2022 8:32 AM EDT 09/27/2022 8:33 AM EDT [facility] - 09/30/2022 7:15 PM EDT FASTING:NO FASTING: NO Lauren Morgan SALES AND MARKETING REPRESENTATIVE LAB BLOOD ORDERABLES Final Resu lt [facility] [address], [place] [address] [facility], [address] [place] [address] * Hepatitis C Antibody with Reflex to HCV, RNA, Quantitative, Real-Time PCR (09/27/2022 8:32 AM EDT) Pathologist [facility] Hepatitis C Antibody NON-REACT ANA MARÍA NON-REACT ANA MARÍA [facility] Comment: HCV antibody was non-reactive. There is no laboratory evidence of HCV infection. In most cases, no further action is required. However, if recent HCV exposure is suspected, a test for HCV RNA (test code 45080) is suggested. For additional information please refer to http://education.[employer]/faq/GWU12j1 (This link is being provided for informational/ educational purposes only.) Blood Venous blood specimen / Unknown 09/27/2022 8:32 AM EDT 09/27/2022 8:33 AM EDT Narrative [facility] - 09/30/2022 7:15 PM EDT FASTING:NO FASTING: NO Lauren PIERIS [employer] LAB BLOOD ORDERABLES Final Resu lt Performing Organization Address [facility]/[employer] Co de Phone Number [employer] [address] [place] [address], [place] [address] [employer] [place] [employer] [address] [place] [phone] * Hemoglobin A1c (05/10/2022 9:25 AM EST) Hemoglobin A1c 5.3 <5.7 % of total Hgb [employer] [place] [employer] Comment: For the purpose of screening for the presence of diabetes: <5.7% ? Consistent with the absence of diabetes 5.7-6.4% ?Consistent with increased risk for diabetes ?(prediabetes) > or =6.5% ??Consistent with diabetes This assay result is consistent with a decreased risk of diabetes. Currently, no consensus exists regarding use of hemoglobin A1c for diagnosis of diabetes in children. According to [place] Diabetes Association (ADA) guidelines, hemoglobin A1c <7.0% represents optimal control in non- diabetic patients. Different metrics may apply to specific patient populations. Standards of Medical Care in Diabetes(ADA). ?? Blood Venous blood specimen / Unknown 05/10/2022 9:25 AM EST 05/10/2022 9:25 AM EST Narrative [facility] - 05/10/2022 9:11 PM EST FASTING:YES FASTING: YES Lauren PIERIS [employer] LAB BLOOD ORDERABLES Final Resu lt Performing Organization Address [facility]/ZIP Co de Phone Number [address], [place] [address] [employer] [place] [employer] [address] [place] [address], (Nl2) [place] [address] * (ABNORMAL) Lipid Panel, Standard (05/10/2022 9:25 AM EST) Cholesterol, Total 187 <200 mg/dL [place] [place] [employer] HDL Cholesterol 37(L) > OR = 40 mg/dL [place] [place] [employer] Triglycerides 184(H) <150 mg/dL [place] [place] [employer] LDL Cholesterol 119(H) mg/dL (calc) [employer] [place] [employer] Comment: Reference range: <100 Desirable range <100 mg/dL for primary prevention; ?? <70 mg/dL for patients with CHD or diabetic patients with > or = 2 CHD risk factors. LDL-C is now calculated using the Joao calculation, which is a validated novel method providing better accuracy than the Friedewald equation in the estimation of LDL-C. Darek SS et al. JEANNE. 2013;310(19): 1532-4400 (http://education.[employer]/faq/LDF951) Chol/HDLC Ratio 5.1(H) <5.0 (calc) [facility] [place] [employer] Non-HDL Cholesterol 150(H) <130 mg/dL (calc) [employer] [place] [employer] Comment: For patients with diabetes plus 1 major ASCVD risk factor, treating to a non-HDL-C goal of <100 mg/dL (LDL-C of <70 mg/dL) is considered a therapeutic option. Blood Venous blood specimen / Unknown 05/10/2022 9:25 AM EST 05/10/2022 9:25 AM EST Narrative [facility] - 05/10/2022 9:11 PM EST FASTING:YES FASTING: YES us Lauren FOURNIER LAB BLOOD ORDERABLES Final Resu lt [facility] [address] [facility], [place] [address] [place] [place] [employer] [address] [facility], ([address]) [place] [address] from Last 3 Months or Most Recently Relevant to Health Maintenance Insurance [facility] Care Teams Water Pollution Control Inspector Relationship Specialty Start Date End Date Nadira Ospina NP [address] [place] [phone] PCP - General Family Medicine 12/06/23
--- OUTSIDE RECORDS SUMMARY | 2024-07-03 07:37 | XMS_ITS | Encounter Summary ---
Author Organization [employer] Address [address] [place] [address] [address] [place] [address] Care Team Providers Care Sports Complex Attendant Name Role Phone Jordan Hagen Primary Care Provider Gilmer Mcadams Primary Care Provider Gilmer Bender Primary Care Provider Jordan Lacey Primary Care Provider Unavail Lauren Peterson Primary Care Provider [phone] Nadira Ospina NP Primary Care Provider [phone] Reason for Visit * Reason Comments Med Refill Encounter Details Date Type Department Care Team (Late st Contact Info) Description 04/30/2022 Refill [facility] MEDICINE [address] [place] [address] Marilou Riggs FNP Chronic low back pain, [...] present documented in this encounter Care Teams Sports Complex Attendant Relationship Specialty Start Date End Date Jordan Hagen AGNP PCP - General Family Medicine 03/03/22 05/06/22 Gilmer Biggs FNP PCP - General Family Medicine 05/07/22 05/16/22 Gilmer Biggs FNP PCP - General Family Medicine 05/17/22 05/26/22 Jordan Hagen AGNP PCP - General Family Medicine 05/27/22 06/06/22 Lauren Morgan FNP [address] [place] [address] PCP - General Family Medicine 06/07/22 12/05/23 Nadira Ospina NP [address] [place] [address] PCP - General Family Medicine 12/06/23 documented as of this encounter
--- OUTSIDE RECORDS SUMMARY | 2024-07-03 07:38 | XMS_ITS | Encounter Summary ---
Author Organization [employer] Address [address] [facility] 7t [place] [address] Care Team Providers Care Wood Type Cutter Name Role Phone Lauren MorganP Primary Care Provider [phone] Nadira Ospina NP Primary Care Provider [phone] Reason for Visit * Reason Comments Med Change Request Encounter Details Date Type Department Care Team ([facility] st Contact Info) Description 03/26/2023 Refill [facility] MEDICINE [address] [place], [place] [phone] Lauren Morgan FNP [address] [place], [place] [phone] Herniation of intervertebral disc between L4 and [...] L5 documented in this encounter Care Teams Wood Type Cutter Relationship Specialty Start Date End Date Lauren Morgan FNP [address] [place] [address] PCP - General Family Medicine 06/07/22 12/05/23 Nadira Ospina NP [address] [place] [address] PCP - General Family Medicine 12/06/23 documented as of this encounter
--- OUTSIDE RECORDS SUMMARY | 2024-07-03 07:38 | XMS_ITS ---
Author Organization [facility] Address [address] [facility] [place] [address] Care Team Providers Care Certification Engineer Name Role Phone Nadira Ospina Primary Care Provider Jayden Negro Unavailable [phone] Allergies No Known Allergies REASON FOR VISIT Skin Problem, Painful nail(s) aggravated by shoes causing difficulty standing/walking Medications Medication SIG (Take, Route, Frequency, Duration) Notes Start Date End Date Status Gabapentin Active Nabumetone Active Cyclobenzaprine HCl Active Ciclopirox Olamine 0.77 % 1 application Externally Twice a day to skin of feet including between the toes for 30 days Active Social History Tobacco Use: Social History Observation Description Date Details (start date - stop date) Current Smoker NA - NA Tobacco use other than smoking: Question Answer Notes Are you an other tobacco user? No Tobacco Control (Standard) Question Answer Notes Tobacco use: Current smoker How often do you smoke cigarettes? Every day How many cigarettes a day do you smoke? 5 or les s How soon after you wake up d o you smoke your first cigarette? 6-30 minutes Are you interested in quitting? Thinking about q uitting Additional Findings: Tobacco user Modera te cigarette smoker (10-19 cigs/day) AUDIT-C (Standard) Question Answer Notes Did you have a drink containing alcohol in the p ast year? No Points 0 Interpretation Negative Vital Signs Blood pressure systolic 120 mm Hg 06/13/19 25 Blood pressure diastolic 80 mm Hg 025 Height 5ft 9in in 06/12/2024 Weight 142.5 lbs 06/12/2024 BMI 21.04 kg/m2 06/12/2024 Procedures Procedure Date Ordered Date Performed Result Body Sit e 80710-IUCNTYR NAIL, 1-5 06/12/2024 N/A Encounters Encounter Location Date Provider Diagnosis [facility] [address] [address] 06/12/2024 Jayden Rogers Tinea pedis of both feet B35.3 ; Onychomycosis B35.1 ; Pain in right toe(s) M79.674 and Pain in left toe(s) M79.675 Assessments Encounter Date Diagnosis (ICD Code) Assessment Notes Treatment Notes Treatment Clinical Notes Section Notes 06/12/2024 Tinea pedis of both feet (ICD-10 - B35.3) 06/12/2024 Onychomycosis (ICD-10 - B35.1) 06/12/2024 Pain in right toe(s) (ICD-10 - M79.674) 06/12/2024 Pain in left toe(s) (ICD-10 - M79.675) Plan Of Treatment Medication Medication Name Sig Start Date Stop Date Notes Ciclopirox Olamine 0.77 % 1 application Externally Twice a day to skin of feet including between the toes for 30 days Pending Test Test Name Order Date 38853-DDSJLUY NAIL, 1-5 06/12/2024 Next Appt Details Follow Up: prn, Reason: Procedure Notes * Category Sub-Category Detail Notes Debride Nails 1-5 Procedure: Due to the cli nical pathology outlined in the exam findings, performance of this nail treatment is medically necessary as its management by an unskilled/untrained nonprofessional would put this patients foot and overall health at risk. Therefore, debridement to affected nail(s), as described in exam TA, T5 was performed exclusively by the physician of record to reduce/remove overall nail length, girth, thickness, subungual debris, and necrotic tissue, by manual and/or electrical means through the use of a nail nipper and/or dremel stylegrinder, to a more viable healthy nail plate or bed tissue 5 nails or fewer in number. Silver nitrate was used for any petechial bleeding as necessary. Definitive antifungal treatment options, both pharmaceutical and surgical, have been reviewed and discussed with the patient. The patient solely prefers the use of intermittent/as needed professional debridement services for their nail condition and understands that additional periodic treatments may be required as necessary to maintain effective symptomatic relief - 81758 Progress Notes * Cristobal WATKINSDOB:1970 (53 yo M)Acc No.[id number]:06/12/2024 Progress Notes Patient:?Cristobal WATKINS Provider:?Jayden Rogers D.P.M. :1970???Age:53 Y???Sex:Male Mario e:06/12/2024 Address:[address] [place] [address], [address], [place], [id number] Pcp:Nadira Ospina Subjective: * Chief Complaints: * ???Skin ProblemPainful nail( s) aggravated by shoes causing difficulty standing/walking * HPI: ???Skin problems:?Nature:?scaling , redness, maceration.?Location:?4th interspcae right foot.?Duration:?a few months.?Onset/Cause:?unknown.?Course:?worse.?Aggravated by:?walking, shoe gear.?Treatments:?Seen by Claims Support Specialist, tx with ketoconazole cream and erythromycin cream which did not help.?Severity/Quality:?moderate.?Painful Nails:?Pt States Last PCP Visit:?Date:?03/22/2024 * ROS:?General/Constitutional:?Nausea?denies.?Vomiting?denies.?Hunger Thirst?denies.?Loss appetite?denies.?Chills?denies.?Fatigue?denies.?Fever?denies.?Night Sweats?denies.?Unexplained weight loss?denies.?Unexplained weight gain?denies.?HEENTM:?Dentures?denies.?Dizziness?denies.?Glasses/contacts?denies.?Retinopathy?de nies.?Blurred/double vision?denies.?TMJ?denies.?Discharge/drainage?denies.?Implants?denies.?Sore throat?denies.?Dental implants?denies.?Hard of hearing ?denies.?Difficulty chewing/swallowing/speaking?denies.?Nose bleeds?denies.?Sore mouth?denies.?Respiratory:?On Oxygen?denies.?Pneumonia/pleurisy?denies.?Bronchitis?denies.?Emphysema?denies.?C oughing?denies.?Cough blood?denies.?Shortness of breath?denies.?Wheezing?denies.?Cardiovascular:?Pacemaker?denies.?MVP?denies.?WPW?denies.?CHF?denies.?Heart attack?denies.?Septal defect?denies.?Rapid beat?denies.?Chest pain ?denies.?Atrial Fib.?denies.?Murmur/Palpitations?denies.?Gastrointestinal:?Hemorrhoids?denies.?Stomach/Abdominal pain?denies.?Dark blood stool?denies.?Irritable bowel ?denies.?Constipation?denies.?Diarrhea?denies.?Hematology:?Swelling?denies.?Clots?denies.?Varicose Veins?denies.?Bruising?denies.?Bleeding problem?denies.?Genitourinary:?Blood urine?denies.?Frequent/Painfu/urination/bladder control?denies.?Kidney stones?denies.?Infection (UTI)?denies.?Nephropathy?denies.?sex trans dis (STD)?denies.?Prostate?denies.?Musculoskeletal:?Hammertoes?denies.?Bunions?denies.?Back Pain?denies.?Muscle Cramps/ Resting?denies.?Muscle cramps / walking?denies.?Generalized aches and pains?denies.?Weakness?denies.?Integ.:?Pearson?denies.?Scars?denies.?Corns/calluses?denies.?Ingrown nails?denies.?Painful nails?admits.?Open Sores?denies.?Rashes?denies.?Neurologic:?Difficulty sleeping?denies.?Brain disorder?denies.?Numbness?denies.?Balance trouble?denies.?Confusion?denies.?Fainting/blackouts?denies.?Tingling?denies.?Tr emors?denies.? * Medical History:? * Surgical History:?Denies Pas t Surgical History * Hospitalization/Major Diagno stic Procedure:?Denies Past Hospitalization * Family History:?Mother: aury martin?Father: , diagnosed with Unspecified heart disease.? * Social History:?Tobacco Use:?Tobacco use other than smoking?Are you an other tobacco user??No ?Tobacco Control (Standard)?Tobacco use:?Current smoker ?How often do you smoke cigarettes??Every day ?How many cigarettes a day do you smoke??5 or less ?How soon after you wake up do you smoke your first cigarette??6-30 minutes ?Are you interested in quitting??Thinking about quitting ?Additional Findings: Tobacco user?Moderate cigarette smoker (10-19 cigs/day) ???Drugs/Alcohol:?Drugs?Have you used drugs other than those for medical reasons in the past 12 months??Yes ?Marijuana??Yes ???Miscellaneous:?Caffeine: yes. ?Marital status: . 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 ???Drug/Alcohol:?AUDIT-C (Standard)?Did you have a drink containing alcohol in the past year??No ?Points?0 ?Interpretation?Negative * Medications:?TakingGabapenti n Nabumetone Cyclobenzaprine HCl Taking Gabapentin Taking Nabumetone Taking Cyclobenzaprine HCl DiscontinuedKetoconazole 2 % Cream 1 application Externally Once a day Erythromycin 2 % Gel 1 application Externally Twice a day Medication List reviewed and reconciled with the patientDiscontinued Ketoconazole 2 % Cream 1 application Externally Once a day Discontinued Erythromycin 2 % Gel 1 application Externally Twice a day Medication List reviewed and reconciled with the patient * Allergies:?N.K.D.A.yes[Aller gies Verified] Objective: * Vitals:?Ht: 5ft 9in, Wt:142. 5, BMI:21.04, Shoe size: 8, BP:120/80mm Hg, Ht-cm: 175.26 cm, Wt-k.64 kg. * Examination: ???General Examination: ?GENERAL APPEARANCE:?Reveals a pleasant, alert, well-nourished, well- developed, well hydrated individual, who demonstrates proper attention to hygiene/body habitus, and is in no acute distress, Pt serves as own?historian for office visit today.?ORIENTED:?person, place, and time.?Neurological: ?SENSORY:?Neurological exam reveals intact sensorium, pain sensation normal, vibration sensation intact, pinprick sensation is normal in the lower extremities, Pt denies, anesthesia, burning, paresthesia, tingling, B/L.?DEEP TENDON REFLEXES:?Achilles, 2/4, B/L.?Vascular: ?DP PULSES (B):?3/4, B/L.?PT PULSES (B):?3/4, B/L.?CAPILLARY FILL TIME:?immediate, all digits, B/L.?TROPHIC CONDITION-TEXTURE/ELASTICITY/TURGOR/HAIR GROWTH (B):?normal, B/L.?TEMPERTURE GRADIENT (C):?warm to cool, proximal to distal, B/L.?PIGMENTATION:?normal, B/L.?EDEMA (C):?absent, B/L.?Dermatologic: ?SKIN FINDINGS:?Skin shows sign(s) of, erythema, scaling and?maceration 4th interspace right foot.?Orthopedic: ?MUSCLE STRENGTH:?5/5 all groups in a symmetrical fashion , B/L.?Nails: ?NAILS are:?Elongated, overgrown, dystrophic, lytic, greater than 3mm thick, discolored and friable with crumbly malodorous subungual debris, with pain on palpation , TA, T5, all other nails not described with characteristics as possessing mycosis are elongated, overgrown, and dystrophic ,T1, T2, T3, T4, T6, T7, T8, T9.? Assessment: * Assessment: 1.?Onychomycosis - B35.1???2 .?Tinea pedis of both feet - B35.3 (Primary)???Specify :Acute problem, Uncomplicated (3),Rx drug management (4)???3.?Pain in right toe(s) - M79.674???4.?Pain in left toe(s) - M79.675??? Plan: * Treatment: 2.?Onychomycosis?Procedure: 67752-KAVZCMM NAIL, 1-5 * Procedures:?Debride Nails 1-5:?Procedure:?Due to the clinical pathology outlined in the exam findings, performance of this nail treatment is medically necessary as its management by an unskilled/untrained nonprofessional would put this patients foot and overall health at risk. Therefore, debridement to affected nail(s), as described in exam TA, T5 was performed exclusively by the physician of record to reduce/remove overall nail length, girth, thickness, subungual debris, and necrotic tissue, by manual and/or electrical means through the use of a nail nipper and/or dremel stylegrinder, to a more viable healthy nail plate or bed tissue 5 nails or fewer in number. Silver nitrate was used for any petechial bleeding as necessary. Definitive antifungal treatment options, both pharmaceutical and surgical, have been reviewed and discussed with the patient. The patient solely prefers the use of intermittent/as needed professional debridement services for their nail condition and understands that additional periodic treatments may be required as necessary to maintain effective symptomatic relief - 36171.? * Procedure Codes:?10239 SLIVANO KHOURY, 1-5 * Preventive Medicine:? ??Counseling:?Discussion:?-03: Office or other outpatient visit for the evaluation and management of a new patient, which required a medically appropriate history and/or examination and LOW level of DECISION MAKING for: 1 STABLE ACUTE UNCOMPLICATED PROBLEM, 2 OR MORE MINOR PROBLEMS, OR 1 STABLE CHRONIC PROBLEM, THAT POSE(S) A LOW RISK FOR MORBIDITY/MORTALITY. The visit on the day of the encounter encompassed interpreting the data and educating the patient as to the nature of their condition, treatment options available according to their individual PMH, meds, allergies, and overall health/living conditions, as well as any potential risks or complications that may occur from a failure to adhere to, and participate in, the recommended course of therapy. The discussion included a complete verbal, and/or written explanation of the examination results, any x-rays taken, the proposed diagnosis, and outline of the treatment plan. A schedule for future care needs was also explained. The patient verbalized an understanding of the instructions at this time and agreed to be an active participant in their treatment. If the patient should think of any questions or concerns after the visit, I have encouraged the patient to call the office.?Tinea Pedis:?The patient was counseled on the diagnosis, potential etiologies, and treatment options for their skin condition. We discussed the risks and benefits of each option from performing no treatment, to utilizing OTC topical skin creams, prescription topical creams, customized compounded topical medications, and, if necessary, to utilize oral antifungal therapy. We discussed the advantages and disadvantages of each possible treatment and importance for adherence to all the recommended therapies for optimum success and avoid potential complications such as open sore/infection/possible hospitalization. We discussed the potential effectiveness of each topical preparation as well as each ones possible side effects and/or patient medication interactions if oral therapy is selected. Patient questions re: the advantages and disadvantages of each treatment choice, medication use/dosage, successful outcomes, and application consistency were reviewed and the patient verbalized that all answers were clearly understood. The patient was told they can help alleviate symptoms by utilizing moisture absorbant innersoles with activated charcoal and baking soda, applying antifungal sprays daily, aerating toe web spaces at night by putting cotton or lambs wool between the toes, alternating shoe gear daily if possible so they can dry out, changing socks at least once during the day, wearing well-ventilated shoes or sandals. The patient has decided to apply antifungal skin creams to their feet as directed. Rx for Ciclopirox Olamine was sent to their pharmacy at the time of visit.? ??Screening/Special Tests:?Fall Risk?Screening:?No falls in the past year ?FALLS: Screening for Future Fall Risk?Have you had any falls with injury in the past year??No * Follow Up:?prn * Images: * Sign off status: Completed true * Provider:?Jayden Rogers D.P.M. Date:?06/02 Generated for Alexander andrew/Bob/Tanitting on:?07/03/2024 07:37 AM EDT History and Physical Notes * HPI (History of Present Illness) Category Sub-Category Detail Notes Category Not es Painful Nails Pt States Last PCP Visit: Date:: 03/22/2024 Skin problems Nature: scaling , redness, macerati on Location: 4th interspcae right foot Duration: a few months Onset/Cause: unknown Course: worse Aggravated by: walking, shoe gear Treatments: Seen by Dermatologis tlorrie with ketoconazole cream and erythromycin cream which did not help Severity/Quality: moderate Misc: Examination Category Sub-Category Detail Notes Category Not es Neurological SENSORY: Neurological exa m reveals intact sensorium, pain sensation normal, vibration sensation intact, pinprick sensation is normal in the lower extremities, Pt denies, anesthesia, burning, paresthesia, tingling, B/L DEEP TENDON REFLEXES: Achilles, 2/4, B/L Dermatologic SKIN FINDINGS: Skin shows sign( s) of, erythema, scaling and maceration 4th interspace right foot VERRUCA: Orthopedic MUSCLE STRENGTH: 5/5 all groups in a symm etrical fashion , B/L General Examination GENERAL APPEARANCE: Reveals a pleasant, alert, well- nourished, well-developed, well hydrated individual, who demonstrates proper attention to hygiene/body habitus, and is in no acute distress, Pt serves as own historian for office visit today ORIENTED: person, place, and t paolo Vascular DP PULSES (B): 3/4, B/L PT PULSES (B): 3/4, B/L CAPILLARY FILL TIME: immediate, all digi ts, B/L TEMPERTURE GRADIENT (C): warm to cool, p roximal to distal, B/L TROPHIC CONDITION-TEXTURE/ELASTICITY/TURGOR/HAIR GROWTH (B): normal, B/L EDEMA (C): absent, B/L PIGMENTATION: normal, B/L Nails NAILS are: Elongated, overg rown, dystrophic, lytic, greater than 3mm thick, discolored and friable with crumbly malodorous subungual debris, with pain on palpation , TA, T5, all other nails not described with characteristics as possessing mycosis are elongated, overgrown, and dystrophic ,T1, T2, T3, T4, T6, T7, T8, T9
--- OUTSIDE RECORDS SUMMARY | 2024-07-03 07:38 | XMS_ITS | Encounter Summary ---
Author Organization [employer] Address [address] [place] [address] [address] [place] [address] Care Team Providers Care Spanish Linguist Name Role Phone Lauren MorganP Primary Care Provider [phone] Nadira Ospina NP Primary Care Provider [phone] Reason for Visit * Reason Comments Med Change Request Encounter Details Date Type Department Care Team ([facility] st Contact Info) Description 09/02/2023 Refill [facility] [address] [place], [place] [phone] Lauren Morgan FNP [address] [place], [place] [phone] Social History Tobacco Use Types Packs/Day Years [...] documented as of this encounter Care Teams Spanish Linguist Relationship Specialty Start Date End Date Lauren Morgan FNP [address] [place] [address] PCP - General Family Medicine 06/07/22 12/05/23 Nadira Ospina NP [address] [place] [address] PCP - General Family Medicine 12/06/23 documented as of this encounter
--- OUTSIDE RECORDS SUMMARY | 2024-07-03 07:38 | XMS_ITS ---
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 Generated for Printi ng/Fakeyshag/eTransmitting on:?07/03/2024 07:37 AM EDT
--- OUTSIDE RECORDS SUMMARY | 2024-07-03 07:38 | XMS_ITS | Encounter Summary ---
Author Organization [employer] Address [address] [place] [address] [address] [place] [address] Care Team Providers Care Paint Roller Covermaker Name Role Phone Lauren MorganP Primary Care Provider [phone] Nadira Ospina NP Primary Care Provider [phone] Reason for Visit * Reason Onset Date Comments Med Refill 08/31/2023 Encounter Details Date Type Department Care Team (Late st Contact Info) Description 08/31/2023 Refill [facility] [address] [place], [place] [phone] Lauren Morgan FNP [address] [place], [place] [phone] Chronic low back pain, unspecified back pain [...] documented as of this encounter Care Teams Paint Roller Covermaker Relationship Specialty Start Date End Date Lauren Morgan FNP [address] [place] [address] PCP - General Family Medicine 06/07/22 12/05/23 Nadira Ospina NP [address] [place] [address] PCP - General Family Medicine 12/06/23 documented as of this encounter
--- OUTSIDE RECORDS SUMMARY | 2024-07-03 07:38 | XMS_ITS | Clinical Summary ---
Author Organization [facility] Address [address] [place] [address] Phone Care Team Providers Care Parking Lot Signaler Name Role Phone Nadira Ospina IRLANDA Primary Care Provider [phone] Allergies No known active allergies Medications ibuprofen (ADVIL,MOTRIN) 600 mg tablet Take 1 tablet (600 mg total) by mouth every 6 (six) hours if needed for mild pain for up to 10 days. 30 tablet 05/28/2024 Encounters Date Type Department Care Team Description 05/28/2024 7:57 AM EST - 05/28/2024 11:27 AM EST Emergency [facility] Emergency [address] [place] [address] Acute pain of right knee [...] Signed Date: 05/28/2024 11:21 ET Workstation ID: [id number] Transcribed By: Self Edit Transcribed Date: 05/28/2024 [...] Signed Date: 05/28/2024 11:21 ET Workstation ID: [id number] Transcribed By: Self Edit Transcribed Date: 05/28/2024 11:21 ET us Claire COHEN CV VASCULAR PROCEDURES Final Result * XR Knee 4+ Views Right (05/28/2024 4:40 AM EST) Anatomical Region Laterality Modality Lower Extremities, Knee Right [facility] 05/28/2024 8:36 AM EST Impressions 05/28/2024 8:51 AM EST FINDINGS/IMPRESSION: No acute fracture or dislocation. ??Chondrocalcinosis. ??Mild medial compartment predominant degenerative change. ??No focal soft tissue swelling or joint effusion. -------- FINAL REPORT -------- Dictated By: DOMINGUEZ VANG Dictated Date: 05/28/2024 08:36 ET Assigned Physician: DOMINGUEZ VANG Reviewed and Electronically Signed By: DOMINGUEZ VANG Signed Date: 05/28/2024 08:51 ET Workstation ID: [id number] Transcribed By: Self Edit Transcribed Date: 05/28/2024 [...] Signed Date: 05/28/2024 08:51 ET Workstation ID: [id number] Transcribed By: Self Edit Transcribed Date: 05/28/2024 [...] Signed Date: 05/28/2024 08:50 ET Workstation ID: [id number] Transcribed By: Self Edit Transcribed Date: 05/28/2024 [...] Signed Date: 05/28/2024 08:50 ET Workstation ID: [id number] Transcribed By: Self Edit Transcribed Date: 05/28/2024 08:49 ET Alvaro Estrada MD IMG XR PROCEDURES Final Result from Last 3 Months Insurance [facility] Member Subscriber Plan / Payer (Ef fective 2024-Present) Name:Cristobal Menezes Relation to Subscriber:Self Name:Cristobal Menezes Payer ID:[id number] Group ID:Not on file Type:Not on file Address: [place] [address] [address] Care Teams Parking Lot Signaler Relationship Specialty Start Date End Date Nadira Ospina FNP [address] [place] [address] PCP - General Nurse Practitioner 05/28/24
--- OUTSIDE RECORDS SUMMARY | 2024-07-03 07:38 | XMS_ITS | Encounter Summary ---
Author Organization [employer] Address [address] [facility] [address] [place] [address] Care Team Providers Care Pipe Manufacture Supervisor Name Role Phone Lauren MorganP Primary Care Provider [phone] Nadira Ospina NP Primary Care Provider Reason for Visit * Reason Onset Date Comments Nurse Triage 02/22/2023 Encounter Details Date Type Department Care Team ([facility] st Contact Info) Description 02/22/2023 Telephone [facility] [address] [place], [place] [phone] Lauren Morgan FNP [address] [place], [place] [phone] Nurse Triage Social History Tobacco Use Types [...] drainage, fever. Advised Pt to come to [facility] today, open until 8pm. Pt agrees with [...] on filedocumented in this encounter Care Teams Pipe Manufacture Supervisor Relationship Specialty Start Date End Date Lauren Morgan FNP [address] [place] [address] PCP - General Family Medicine 06/07/22 12/05/23 Nadira Ospina NP [address] [place] [address] PCP - General Family Medicine 12/06/23 documented as of this encounter
--- OUTSIDE RECORDS SUMMARY | 2024-07-03 07:38 | XMS_ITS | Encounter Summary ---
Author Organization [employer] Address [address] [place] [address] [address] [place] [address] Care Team Providers Care Quality Reviewer Name Role Phone Lauren MorganP Primary Care Provider [phone] Nadira Ospina NP Primary Care Provider [phone] Reason for Visit * Reason Comments Med Refill Encounter Details Date Type Department Care Team (Late st Contact Info) Description 08/20/2023 Refill [facility] [address] [place], [place] [phone] Lauren Morgan FNP [address] [place], [place] [phone] Vitamin D deficiency Social History Tobacco Use [...] documented as of this encounter Care Teams Quality Reviewer Relationship Specialty Start Date End Date Lauren Morgan FNP [address] [place] [address] PCP - General Family Medicine 06/07/22 12/05/23 Nadira Ospina NP [address] [place] [address] PCP - General Family Medicine 12/06/23 documented as of this encounter
--- OUTSIDE RECORDS SUMMARY | 2024-07-03 07:38 | XMS_ITS | Encounter Summary ---
Author Organization [employer] Address [address] [facility] 7t [place] [address] Care Team Providers Care Janitor Name Role Phone Lauren Morgan Primary Care Provider [phone] Nadira Ospina NP Primary Care Provider [phone] Encounter Details Date Type Department Care Team (Late st Contact Info) Description 09/02/2023 Orders Only [facility] CHC MED & PEDS [address] [place], [place] [phone] Lauren Morgan FNP [address] [place], [place] [phone] Social History Tobacco Use Types Packs/Day Years [...] documented as of this encounter Care Teams Janitor Relationship Specialty Start Date End Date Lauren Morgan FNP [address] [place] [address] PCP - General Family Medicine 06/07/22 12/05/23 Nadira Ospina NP [address] [place] [address] PCP - General Family Medicine 12/06/23 documented as of this encounter
--- OUTSIDE RECORDS SUMMARY | 2024-07-03 07:38 | XMS_ITS | Patient Health Record ---
Author Organization [facility] Address [address] [place] [address] Care Team Providers Care Drafter Engineering Name Role Phone Nadira Ospina Primary Care Provider Jayden Negro Unavailable [phone] Allergies No Known Allergies Reason For Referral No Information Medications Medication SIG (Take, Route, Frequency, Duration) Notes Start Date End Date Status Ciclopirox Olamine 0.77 % 1 application Externally Twice a day to skin of feet including between the toes for 30 days Active Gabapentin Active Nabumetone Active Cyclobenzaprine HCl Active Social History Tobacco Use: Social History [...] 0 Interpretation Negative Vital Signs Blood pressure diastolic 80 mm Hg 06/12/2024 Height 5ft 9in in 06/12/2024 Blood pressure systolic 120 mm Hg 06/12/2024 Weight 142.5 lbs 06/12/2024 BMI 21.04 kg/m2 06/12/2024 Procedures Procedure Date Ordered Date Performed Result Body Sit e 55957-[id number] NAIL, 1-5 06/12/2024 N/A Encounters Encounter Location Date Provider Diagnosis [facility] [place] [address] 06/12/2024 Jayden Rogers Tinea pedis of both feet B35.3 ; Onychomycosis B35.1 ; Pain in right toe(s) M79.674 and Pain in left toe(s) M79.[address] [facility] [address] 04/18/2024 Jayden Rogers [facility] [address] 06/07/2024 Jayden Rogers Assessments Encounter Date Diagnosis (ICD Code) Assessment Notes Treatment Notes Treatment Clinical Notes Section Notes 06/12/2024 Onychomycosis (ICD-10 - B35.1) 06/12/2024 Tinea pedis of both feet (ICD-10 - B35.3) 06/12/2024 Pain in right toe(s) (ICD-10 - M79.674) 06/12/2024 Pain in left toe(s) (ICD-10 - M79.675) Plan Of Treatment Pending Test Test Name Order Date 06005-CSIUYON NAIL, 1-06/12/2024 Insurance Providers Payer Name Payer Address Payer Phone Subscriber Number Group Number Insured Name Patient Relationship to Insured Coverage Start Date Coverage End Date [facility] [employer] Claims [address] [place] [id number] Cristobal Menezes Self - patient is the insured Medical (General) History Medical History History ICD Code Anxiety Back,Hip,and Knee pain Broken bones Headaches/Migraines nerve disorder Osteoporosis Poor circulation Warts Chicken pox Joint implants/screws Transfusions TBI Hearing impaired
--- OUTSIDE RECORDS SUMMARY | 2024-07-03 07:38 | XMS_ITS | Encounter Summary ---
Author Organization [employer] Address [address] [place] [address] 7t [place] [address] Care Team Providers Care Economic Development Director Name Role Phone Lauren Morgan PARALEGAL INSTRUCTOR Primary Care Provider [phone] Nadira Ospina BOOK JOGGER Primary Care Provider [phone] Reason for Visit * Reason Comments Med Refill Encounter Details Date Type Department Care Team (Late st Contact Info) Description 08/30/2023 Refill [facility] MEDICINE [address] [place], [place] [phone] [facility] 230 [place], [place] [phone] Herniation of intervertebral disc between L4 and [...] documented as of this encounter Care Teams Economic Development Director Relationship Specialty Start Date End Date Lauren Morgan FNP [address] [place] [address] PCP - General Family Medicine 06/07/22 12/05/23 Nadira Ospina NP 230 [place] [address] PCP - General Family Medicine 12/06/23 documented as of this encounter
--- OUTSIDE RECORDS SUMMARY | 2024-07-03 07:38 | XMS_ITS | Encounter Summary ---
Author Organization [employer] Address [address] [facility] 7t [place] [address] Care Team Providers Care Senior Tax Analyst Name Role Phone Nadira Ospina NP Primary Care Provider [phone] Encounter Details Date Type Department Care Team (Late st Contact Info) Description 05/29/2024 Telephone [facility] MEDICINE [address] [place] [address] Nadira Ospina NP [address] [place], [place] [phone] Social History Tobacco Use Types Packs/Day Years [...] documented as of this encounter Care Teams Senior Tax Analyst Relationship Specialty Start Date End Date Nadira Ospina NP [address] [place] [address] PCP - General Family Medicine 12/06/23 documented as of this encounter
--- OUTSIDE RECORDS SUMMARY | 2024-07-03 07:38 | XMS_ITS | Encounter Summary ---
Author Organization [employer] Address [address] [place] [address] 7t [place] [address] Care Team Providers Care Clinical Program Director Name Role Phone Lauren MorganP Primary Care Provider [phone] Nadira Ospina NP Primary Care Provider [phone] Reason for Visit * Reason Comments Med Refill Encounter Details Date Type Department Care Team (Late st Contact Info) Description 08/30/[address] [facility] MEDICINE [address] [place], [place] [phone] Lauren Morgan FNP [address] [place], [place] [phone] Vitamin D deficiency Social History Tobacco Use [...] documented as of this encounter Care Teams Clinical Program Director Relationship Specialty Start Date End Date Lauren Morgan FNP [address] [place] [address] PCP - General Family Medicine 06/07/22 12/05/23 Nadira Ospina NP 230 [place] [address] PCP - General Family Medicine 12/06/23 documented as of this encounter
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
[2024-07-03 08:02] VITALS: BP 132/72; PULSE 88; O2SAT 98; BMI 19.9
== END 2024-07-03 10:23 | disposition home or self-care (01) ==
LOC: HO.HGI 07:35
PROVIDERS: Visit Provider Nurse Practitioner Family
DX: Z01.818 Encounter for other preprocedural examination (principal); Z12.11 Encounter for screening for malignant neoplasm of colon
CPT/HCPCS: 99024

== ENCOUNTER → 2024-07-03 07:34 | Outpatient (BNVA) | payer OTHER, SELFPAY | PROVIDERS: Visit Provider Nurse Practitioner Family | DX: Z12.11 Encounter for screening for malignant neoplasm of colon (principal) | CPT/HCPCS: 99212 ==

== ENCOUNTER 2024-08-09 08:44 | Outpatient (REF) | payer OTHER, SELFPAY ==
--- NOTE | ~2024-08-09 | XR_ITS ---
EXAMINATION: XR KNEE 4 OR MORE VIEWS LEFT HISTORY: left knee pain COMPARISON: Comparison is made with the prior examination dated 11/06/2021. FINDINGS: Four views of the left knee are submitted. The patient is again noted to be status post left knee arthroplasty. The patella is absent. The orthopedic hardware is in anatomic alignment. There is no radiographic evidence of loosening. There is no fracture or dislocation. The soft tissues are unremarkable. XR/XR knee LT 4V IMPRESSION: Status post left total knee arthroplasty. Electronically signed by: David Tyler MD 08/09/2024 09:13 AM EDT
--- OUTSIDE RECORDS SUMMARY | 2024-08-09 09:02 | XMS_ITS | Encounter Summary ---
Author Organization [employer] Address [address] [place] [address] 7 [place] [address] Care Team Providers Care Editorial Writer Name Role Phone Jordan Hagen Primary Care Provider Gilmer Mcadams Primary Care Provider Gilmer Bender Primary Care Provider Jordan Lacey Primary Care Provider Unavail Lauren Peterson Primary Care Provider [phone] Nadira Ospina NP Primary Care Provider [phone] Reason for Visit * Reason Comments Med Refill Encounter Details Date Type Department Care Team ([facility] st Contact Info) Description 04/19/2022 Refill [facility] CHC MED & PEDS [address] [place], [place] [phone] Barry Ott MD [address] [place], [place] [phone] Herniation of intervertebral disc between L4 and [...] L5 documented in this encounter Care Teams Editorial Writer Relationship Specialty Start Date End Date Jordan Hagen AGNP PCP - General Family Medicine 03/03/22 05/06/22 Gilmer Biggs FNP PCP - General Family Medicine 05/07/22 05/16/22 Gilmer Biggs FNP PCP - General Family Medicine 05/17/22 05/26/22 Jordan Hagen AGNP PCP - General Family Medicine 05/27/22 06/06/22 Lauren Morgan FNP 230 [place] [address] PCP - General Family Medicine 06/07/22 12/05/23 Nadira Ospina NP 230 [place] [address] PCP - General Family Medicine 12/06/23 documented as of this encounter
--- OUTSIDE RECORDS SUMMARY | 2024-08-09 09:02 | XMS_ITS | Encounter Summary ---
Author Organization [employer] Address [address] [place] [address] 7t [place] [address] Care Team Providers Care Burner Tender Name Role Phone Gilmer Biggs Primary Care Provider Gilmer Bender Primary Care Provider Jordan Lacey Primary Care Provider Lauren Ames Primary Care Provider [phone] Nadira Ospina NP Primary Care Provider [phone] Encounter Details Date Type Department Care Team (Late st Contact Info) Description 05/10/2022 Orders Only [facility] MEDICINE [address] [place], [place] [phone] Lauren Morgan FNP [address] [place], [place] [phone] IFG (impaired fasting glucose) (Primary Dx) Social [...] A1c 5.3 <5.7 % of total Hgb [facility] [place] [facility] Comment: For the purpose of screening for the presence of diabetes: <5.7% ? Consistent with the absence of diabetes 5.7-6.4% ?Consistent with increased risk for diabetes ?(prediabetes) > or =6.5% ??Consistent with diabetes This assay result is consistent with a decreased risk of diabetes. Currently, no consensus exists regarding use of hemoglobin A1c for diagnosis of diabetes in children. According to [place] Diabetes Association (ADA) guidelines, hemoglobin A1c <7.0% represents optimal control in non- diabetic patients. Different metrics may apply to specific patient populations. Standards of Medical Care in Diabetes(ADA). ?? Blood Venous blood specimen / Unknown 05/10/2022 9:25 AM EST 05/10/2022 9:25 AM EST Narrative [facility] - 05/10/2022 9:11 PM EST FASTING:YES FASTING: YES us Lauren Morgan [facility] LAB BLOOD ORDERABLES Final Resu lt [facility] [address] [facility], [facility], [place] [address] [facility] [place] [facility] [address] , ([address]) [place] [address] * (ABNORMAL) Lipid Panel, Standard (05/10/2022 9:25 AM EST) Cholesterol, Total 187 <200 mg/dL [facility] [place] [facility] HDL Cholesterol 37(L) > OR = 40 mg/dL [facility] [place] [facility] Triglycerides 184(H) <150 mg/dL [facility] [place] [facility] LDL Cholesterol 119(H) mg/dL (calc) [facility] [place] [facility] Comment: Reference range: <100 Desirable range <100 mg/dL for primary prevention; ?? <70 mg/dL for patients with CHD or diabetic patients with > or = 2 CHD risk factors. LDL-C is now calculated using the Joao calculation, which is a validated novel method providing better accuracy than the Friedewald equation in the estimation of LDL-C. Darek SS et al. JEANNE. 2013;310(19): 3586-9513 (http://education.Mijn AutoCoach/faq/NEO083) Chol/HDLC Ratio 5.1(H) <5.0 (calc) [facility] [place] [facility] Non-HDL Cholesterol 150(H) <130 mg/dL (calc) [facility] [place] [facility] Comment: For patients with diabetes plus 1 major ASCVD risk factor, treating to a non-HDL-C goal of <100 mg/dL (LDL-C of <70 mg/dL) is considered a therapeutic option. Blood Venous blood specimen / Unknown 05/10/2022 9:25 AM EST 05/10/2022 9:25 AM EST Narrative [facility] - 05/10/2022 9:11 PM EST FASTING:YES FASTING: YES Lauren Morgan [facility] BLOOD ORDERABLES Final Resu lt [facility] [address] [facility], [facility], [place] [address] [facility] [place] [facility] [address] [facility], ([address]) [place] [address] * (ABNORMAL) Comprehensive Metabolic Panel (05/10/2022 9:25 AM EST) Glucose 101(H) 65 - 99 mg/dL [facility] [place] [employer] Comment: ? Fasting reference interval For someone without known diabetes, a glucose value between 100 and 125 mg/dL is consistent with prediabetes and should be confirmed with a follow-up test. Urea Nitrogen (BUN) 9 7 - 25 mg/dL [facility] [place] [facility] Creatinine, Serum 0.81 0.70 - 1.30 mg/dL [facility] [place] [facility] eGFR 107 > OR = 60 mL/min/1 .73m2 [facility] [place] [email or web address] Comment: The eGFR is based on the CKD-EPI 2020 equation. To calculate the new eGFR from a previous Creatinine or Cystatin C result, go to https://www.kidney.org/professionals/ kdoqi/gfr%5Fcalculator BUN/Creatinine Ratio NOT APPLICABLE 6 - 22 (calc) [facility] [place] [facility] Sodium 139 135 - 146 mmol/L [facility] [place] [facility] Potassium 4.6 3.5 - 5.3 mmol/L [facility] [place] [facility] Chloride 101 98 - 110 mmol/L [facility] [place] [employer] Carbon Dioxide 26 20 - 32 mmol/L [facility] [place] [facility] Calcium 9.7 8.6 - 10.3 mg/dL [facility] [place] [employer] Protein, Total 7.5 6.1 - 8.1 g/dL [facility] Albumin 4.9 3.6 - 5.1 g/dL [facility] [place] [facility] Globulin 2.6 1.9 - 3.7 g/dL (calc) [facility] [place] [facility] Albumin/Globul in Ratio 1.9 1.0 - 2.5 (calc) [facility] [place] [employer] Bilirubin, Total 0.4 0.2 - 1.2 mg/dL [facility] [place] [facility] Alkaline Phosphatase 77 35 - 144 U/L [facility] [place] [facility] AST 24 10 - 35 U/L [facility] [place] [facility] ALT 31 9 - 46 U/L [facility] [place] [facility] Blood Venous blood specimen / Unknown 05/10/2022 9:25 AM EST 05/10/2022 9:25 AM EST Narrative [facility] - 05/10/2022 9:11 PM EST FASTING:YES FASTING: YES us Lauren Botas DISTRIBUTION DESIGNER LAB BLOOD ORDERABLES Final Resu lt [facility] [address] [facility], 3rd Fl, [place] [address] [facility] [place] [facility] [address] [facility], (Nl[address]) [place] [address] documented in this encounter Visit Diagnoses Diagnosis IFG (impaired fasting glucose)- Primary documented in this encounter Care Teams Burner Tender Relationship Specialty Start Date End Date Gilmer Biggs FNP PCP - General Family Medicine 05/07/22 05/16/22 Gilmer Biggs FNP PCP - General Family Medicine 05/17/22 05/26/22 Jordan Hagen AGNP PCP - General Family Medicine 05/27/22 06/06/22 Lauren Morgan FNP 230 [place] [address] PCP - General Family Medicine 06/07/22 12/05/23 Nadira Ospina NP [address] [place] [address] PCP - General Family Medicine 12/06/23 documented as of this encounter
--- OUTSIDE RECORDS SUMMARY | 2024-08-09 09:02 | XMS_ITS | Encounter Summary ---
Author Organization [employer] Address [address] [place] [address] 7 [place] [address] Care Team Providers Care Insurance Legal Assistant Name Role Phone Jordan Hagen Primary Care Provider Gilmer Mcadams Primary Care Provider Gilmer Bender Primary Care Provider Jordan Lacey Primary Care Provider Unavail Lauren Peterson Primary Care Provider [phone] Nadira Ospina NP Primary Care Provider [phone] Reason for Visit * Reason Comments Med Refill Encounter Details Date Type Department Care Team (Late st Contact Info) Description 04/30/2022 Refill [facility] MEDICINE [address] [place] [address] Marilou Riggs FNP Chronic low back pain, [...] present documented in this encounter Care Teams Insurance Legal Assistant Relationship Specialty Start Date End Date Jordan Haegn AGNP PCP - General Family Medicine 03/03/22 05/06/22 Gilmer Biggs FNP PCP - General Family Medicine 05/07/22 05/16/22 Gilmer Biggs FNP PCP - General Family Medicine 05/17/22 05/26/22 Jordan Hagen AGNP PCP - General Family Medicine 05/27/22 06/06/22 Lauren Morgan FNP 230 [place] [address] PCP - General Family Medicine 06/07/22 12/05/23 Nadira Ospina NP 230 [place] [address] PCP - General Family Medicine 12/06/23 documented as of this encounter
--- OUTSIDE RECORDS SUMMARY | 2024-08-09 09:03 | XMS_ITS | Encounter Summary ---
Author Organization [employer] Address [address] [facility] 7t [place] [address] Care Team Providers Care Account Engineer Name Role Phone Nadira Ospina NP Primary Care Provider [phone] Encounter Details Date Type Department Care Team ([facility] st Contact Info) Description 08/07/2024 Orders Only [facility] MEDICINE 230 [place], [place] [phone] Nadira Ospina NP [address] [place], [place] [phone] Chronic pain of right knee (Primary Dx) Social History Tobacco Use Types [...] AM EDT documented as of this encounter Progress Notes * Nadira Ospina NP - 08/07/2024 1:12 PM EDT Ordered, however not sure how to facilitate order for outside facility. documented in this encounter Plan of Treatment Scheduled Orders Name Type Priority Associated Diagnoses Orde r Schedule XR Knee 4+ Views Right Imaging Routine Chronic pain of right knee Expected: 08/07/2024, Expires: 08/07/2025 documented as of this encounter Visit Diagnoses Diagnosis Chronic pain of right knee- Primary documented in this encounter Additional Health Concerns Assessment Noted Time PHQ-9 Depression Total Score: 3 05/09/19 24 10:30 AM EST documented as of this encounter Care Teams Account Engineer Relationship Specialty Start Date End Date Nadira Ospina NP [address] [place] [address] PCP - General Family Medicine 12/06/23 documented as of this encounter
--- OUTSIDE RECORDS SUMMARY | 2024-08-09 09:03 | XMS_ITS | Encounter Summary ---
Author Organization [employer] Address [address] [place] [address] 7t [place] [address] Care Team Providers Care Forest Science Professor Name Role Phone Lauren MorganP Primary Care Provider [phone] Nadira Ospina NP Primary Care Provider [phone] Reason for Visit * Reason Onset Date Comments Med Refill 08/31/2023 Encounter Details Date Type Department Care Team (Late st Contact Info) Description 08/31/2023 Refill [facility] MEDICINE 230 [place], [place] [phone] Lauren Morgan FNP 230 [place], [place] [phone] Chronic low back pain, unspecified back pain [...] documented as of this encounter Care Teams Forest Science Professor Relationship Specialty Start Date End Date Lauren Mogran FNP 230 [place] [address] PCP - General Family Medicine 06/07/22 12/05/23 Nadira Ospina NP 230 [place] [address] PCP - General Family Medicine 12/06/23 documented as of this encounter
--- OUTSIDE RECORDS SUMMARY | 2024-08-09 09:03 | XMS_ITS | Encounter Summary ---
Author Organization [employer] Address [address] [place] [address] Care Team Providers Care Guide Dog Mobility Instructor Name Role Phone Nadira Ospina NP Primary Care Provider [phone] Encounter Details Date Type Department Care Team ([facility] st Contact Info) Description 05/29/2024 Telephone [facility] MED[facility]INE [address] [place] [address] Nadira Ospina NP [address] [place], [place] [phone] Social History Tobacco Use Types Packs/Day Years [...] documented as of this encounter Care Teams Guide Dog Mobility Instructor Relationship Specialty Start Date End Date Nadira Ospina NP [address] [place] [address] PCP - General Family Medicine 12/06/23 documented as of this encounter
--- OUTSIDE RECORDS SUMMARY | 2024-08-09 09:03 | XMS_ITS | Encounter Summary ---
Author Organization [employer] Address [address] [place] [address] 7 [place] [address] Care Team Providers Care Annealer Name Role Phone Lauren MorganP Primary Care Provider [phone] Nadira Ospina NP Primary Care Provider [phone] Reason for Visit * Reason Comments Med Refill Encounter Details Date Type Department Care Team ([facility] st Contact Info) Description 08/30/2023 Refill [facility] MEDICINE [address] [place], [place] [phone] Lauren Morgan FNP [address] [place], [place] [phone] Vitamin D deficiency Social History Tobacco Use [...] documented as of this encounter Care Teams Annealer Relationship Specialty Start Date End Date Lauren Morgan FNP [address] [place] [address] PCP - General Family Medicine 06/07/22 12/05/23 Nadira Ospina NP 230 [place] [address] PCP - General Family Medicine 12/06/23 documented as of this encounter
--- OUTSIDE RECORDS SUMMARY | 2024-08-09 09:03 | XMS_ITS | Encounter Summary ---
Author Organization [employer] Address [address] [place] [address] 7 [place] [address] Care Team Providers Care Satellite Dish Repairer Name Role Phone Lauren MorganP Primary Care Provider [phone] Nadiar Ospina NP Primary Care Provider [phone] Reason for Visit * Reason Comments Med Refill Encounter Details Date Type Department Care Team ([facility] st Contact Info) Description 08/20/2023 Refill [facility] MEDICINE [address] [place], [place] [phone] Lauren Morgan FNP [address] [place], [place] [phone] Vitamin D deficiency Social History Tobacco Use [...] documented as of this encounter Care Teams Satellite Dish Repairer Relationship Specialty Start Date End Date Lauren Morgan FNP [address] [place] [address] PCP - General Family Medicine 06/07/22 12/05/23 Nadira Ospina NP [address] [place] [address] PCP - General Family Medicine 12/06/23 documented as of this encounter
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
--- OUTSIDE RECORDS SUMMARY | 2024-08-09 09:03 | XMS_ITS | Encounter Summary ---
Author Organization [employer] Address [address] [place] [address] 7 [place] [address] Care Team Providers Care Restaurant Supervisor Name Role Phone Nadira Ospina NP Primary Care Provider [phone] Reason for Visit * Reason Onset Date Comments Results 08/07/2024 Pt requesting XR of left knee pt stated [facility] [address] [place] [address] is requesting a new XR order from pcp . Encounter Details Date Type Department Care Team (Late st Contact Info) Description 08/07/2024 Telephone [facility] MEDICINE [address] [place], [place] [phone] Nadira Ospina NP [address] [place], [place] [phone] Results (Pt requesting XR of left knee pt stated [facility] [address] [place] [address] is requesting a new XR order from pcp .) Social History Tobacco Use Types Packs/Day Years [...] Telephone Encounter - Alicia Atkins RN - 08/08/2024 9:38 AM EDT TC placed to pt to inform that orders placed for XRAY. Advised pt orders printed and left at blue team FD. Pt verbalized understanding and denies questions at this time. * Telephone Encounter - Sasha Travis - 08/07/2024 8:42 AM EDT Pt requesting XR of left knee pt stated [facility] [address] [facility] is requesting a new XR order from pcp . documented in this encounter Plan of Treatment Scheduled Orders Name Type Priority Associated Diagnoses Orde r Schedule XR Knee 3 Views Left Imaging Routine Acute pain of left knee Expected: 08/07/2024, Expires: 08/07/2025 documented as of this encounter Visit Diagnoses Diagnosis Acute pain of left knee- Primary documented in this encounter Additional Health Concerns Assessment Noted Time PHQ-9 Depression Total Score: 3 05/09/19 24 10:30 AM EST documented as of this encounter Care Teams Restaurant Supervisor Relationship Specialty Start Date End Date Nadira Ospina NP [address] [place] [address] PCP - General Family Medicine 12/06/23 documented as of this encounter
--- OUTSIDE RECORDS SUMMARY | 2024-08-09 09:03 | XMS_ITS | Encounter Summary ---
Author Organization [employer] Address [address] [place] [address] 7t [place] [address] Care Team Providers Care Senior Mobile Solutions Architect Name Role Phone Lauren MorganP Primary Care Provider [phone] Nadira Ospina NP Primary Care Provider Reason for Visit * Reason Onset Date Comments Nurse Triage 02/22/2023 Encounter Details Date Type Department Care Team ([facility] st Contact Info) Description 02/22/2023 Telephone [facility] MEDICINE [address] [place], [place] [phone] Lauren Morgan FNP [address] [place], [place] [phone] Nurse Triage Social History Tobacco Use Types [...] drainage, fever. Advised Pt to come to [facility] today, open until 8pm. Pt agrees [...] on filedocumented in this encounter Care Teams Senior Mobile Solutions Architect Relationship Specialty Start Date End Date Lauren Morgan FNP [address] [place] [address] PCP - General Family Medicine 06/07/22 12/05/23 Nadira Ospina NP [address] [place] [address] PCP - General Family Medicine 12/06/23 documented as of this encounter
--- OUTSIDE RECORDS SUMMARY | 2024-08-09 09:03 | XMS_ITS | Encounter Summary ---
Author Organization [employer] Address [address] [place] [address] 7t [place] [address] Care Team Providers Care Tea Tree Farm Worker Name Role Phone Lauren MorganP Primary Care Provider [phone] Nadira Ospina NP Primary Care Provider [phone] Reason for Visit * Reason Comments Med Change Request Encounter Details Date Type Department Care Team ([facility] st Contact Info) Description 03/26/2023 Refill [facility] MEDICINE [address] [place], [place] [phone] Lauren Morgan FNP [address] [place], [place] [phone] Herniation of intervertebral disc between L4 and [...] L5 documented in this encounter Care Teams Tea Tree Farm Worker Relationship Specialty Start Date End Date Lauren Morgan FNP [address] [place] [address] PCP - General Family Medicine 06/07/22 12/05/23 Nadira Ospina NP [address] [place] [address] PCP - General Family Medicine 12/06/23 documented as of this encounter
--- OUTSIDE RECORDS SUMMARY | 2024-08-09 09:03 | XMS_ITS | Clinical Summary ---
Author Organization [employer] Address [address] [facility] 7t [place] [address] Care Team Providers Care Weed Inspector Name Role Phone Nadira Ospina NP Primary Care Provider [phone] Allergies No known active allergies Medications Multiple [...] Encounters Date Type Department Care Team Description 08/07/2024 Orders Only [address] [address] Nadria Ospina NP Chronic pain of right knee (Primary Dx) 08/07/[address] [address] Nadira Ospina NP Results (Pt requesting XR of left knee pt stated [facility] [address] [place] [address] is requesting a new XR order from pcp .) 07/17/[address] [address] Nadira Ospina NP Chronic low back pain, unspecified back pain laterality, unspecified whether sciatica present 06/16/[address] [address] Nadira Ospina NP Chronic low back pain, unspecified back pain laterality, unspecified whether sciatica present 06/04/[address] [address] Nadira Ospina NP Referral 06/01/2024 11:15 AM EST Office Visit [address] [address] Cristal Neal NP Popliteal cyst, right (Primary Dx); Elevated blood pressure reading in office with diagnosis of hypertension 05/30/[address] [address] Nadira Ospina NP Nurse Triage 05/29/[address] [phone] Nadira Ospina NP 05/17/2024 Refill [facility] [address] [place] [address] Nadira Ospina NP Chronic low back pain, [...] Cancer Screening 08/03/2023 FOBT 08/03/2023 COVID-19 Vaccine (3 - season) 2023 09/12/2020, 08/15/2020 Zoster Vaccines (2 of 2) 12/08/2023 10/13/2023 Depression Screening 05/09/2024 05/09/2023, 05/09/19 24 Pneumococcal Vaccine: 50+ Years (2 of [...] Procedure Name Priority Date/Time Associated Diagnosis Comments AMB REFERRAL TO ORTHOPAEDIC SURGERY Routine 07/27/2024 Popliteal cyst, right AMB REFERRAL TO SPEECH THERAPY Routine 07/18/2024 Speech delay HEPATITIS C AB W/REFL TO HCV RNA, [...] Recently Relevant to Health Maintenance Results * Referral to Orthopaedic Surgery (07/27/2024) Cristal Neal BODY TEAM MEMBER OUTPATIENT REFERRAL ORDERABLES Final Result * Referral to Speech Therapy (07/18/2024) Nadira Ospina BODY TEAM MEMBER OUTPATIENT REFERRAL ORDERABLES F inal Result * HIV-1 RNA, Quantitative, Real-Time PCR with Reflex to Genotype (RTI, PI, Integrase) (09/27/2022 8:32 AM EDT) Pathologist [facility] HIV 1 RNA, QN PCR NOT DETECTED copies/mL [facility], HIV 1 RNA, QN PCR NOT DETECTED Log copies/mL [facility], Comment: REFERENCE RANGE: NOT DETECTED copies/mL ?NOT DETECTED ??Log copies/mL This test was performed using Real-Time Polymerase Chain Reaction. Reportable range is 20 to 10,000,000 copies/mL (1.30-7.00 Log copies/mL). 09/27/2022 8:32 AM EDT 09/27/2022 8:33 AM EDT Narrative [facility] - 09/30/2022 7:15 PM EDT FASTING:NO FASTING: NO Lauren Morgan BASKET MENDER LAB BLOOD ORDERABLES Final Resu lt [facility] [address], [place] [address] [facility], [address] [facility] [place] [address] * Hepatitis C Antibody with Reflex to HCV, RNA, Quantitative, Real-Time PCR (09/27/2022 8:32 AM EDT) Pathologist [facility] Hepatitis C Antibody NON-REACT ANA MARÍA NON-REACT ANA MARÍA [facility] [place] [facility] Comment: HCV antibody was non-reactive. There is no laboratory evidence of HCV infection. In most cases, no further action is required. However, if recent HCV exposure is suspected, a test for HCV RNA (test code 34166) is suggested. For additional information please refer to http://education.[employer]/faq/HGD15t8 (This link is being provided for informational/ educational purposes only.) Blood Venous blood specimen / Unknown 09/27/2022 8:32 AM EDT 09/27/2022 8:33 AM EDT [facility] - 09/30/2022 7:15 PM EDT FASTING:NO FASTING: NO us Lauren Morgan [facility] LAB BLOOD ORDERABLES Final Resu lt [facility] [address], [place] [address] [facility] [address] [place] [address] * Hemoglobin A1c (05/10/2022 9:25 AM EST) [facility] Hemoglobin A1c 5.3 <5.7 % of total Hgb [facility] [place] [facility] Comment: For the purpose of screening for the presence of diabetes: <5.7% ? Consistent with the absence of diabetes 5.7-6.4% ?Consistent with increased risk for diabetes ?(prediabetes) > or =6.5% ??Consistent with diabetes This assay result is consistent with a decreased risk of diabetes. Currently, no consensus exists regarding use of hemoglobin A1c for diagnosis of diabetes in children. According to [place] Diabetes Association (ADA) guidelines, hemoglobin A1c <7.0% represents optimal control in non- diabetic patients. Different metrics may apply to specific patient populations. Standards of Medical Care in Diabetes(ADA). ?? Blood Venous blood specimen / Unknown 05/10/2022 9:25 AM EST 05/10/2022 9:25 AM EST Narrative [facility] - 05/10/2022 9:11 PM EST FASTING:YES FASTING: YES Lauren Cathy [facility] LAB BLOOD ORDERABLES Final Resu lt [facility] [address] [facility], [place] [address] [facility] [place] [employer] [address] [facility], (N[address]2) [place] [address] * (ABNORMAL) Lipid Panel, Standard (05/10/2022 9:25 AM EST) [facility] Cholesterol, Total 187 <200 mg/dL [facility] [place] [employer] HDL Cholesterol 37(L) > OR = 40 mg/dL [facility] [place] [facility] [facility] Triglycerides 184(H) <150 mg/dL [facility] [place] [facility] LDL Cholesterol 119(H) mg/dL (calc) [facility] [place] [employer] Comment: Reference range: <100 Desirable range <100 mg/dL for primary prevention; ?? <70 mg/dL for patients with CHD or diabetic patients with > or = 2 CHD risk factors. LDL-C is now calculated using the Darek-Ann calculation, which is a validated novel method providing better accuracy than the Friedewald equation in the estimation of LDL-C. Darek SANTOS et al. JEANNE. 2013;310(19): 1516-9585 (http://education.[employer].[place]/faq/ALG555) Chol/HDLC Ratio 5.1(H) <5.0 (calc) [facility] [place] [facility] Non-HDL Cholesterol 150(H) <130 mg/dL (calc) [facility] [place] [employer] Comment: For patients with diabetes plus 1 major ASCVD risk factor, treating to a non-HDL-C goal of <100 mg/dL (LDL-C of <70 mg/dL) is considered a therapeutic option. Blood Venous blood specimen / Unknown 05/10/2022 9:25 AM EST 05/10/2022 9:25 AM EST Narrative [facility] - 05/10/2022 9:11 PM EST FASTING:YES FASTING: YES Lauren Morgan BASKET MENDER LAB BLOOD ORDERABLES Final Resu lt [facility] [address] [facility], [address], [place] [address] [facility] [address] [facility], (Nl2) [place] [address] from Last 3 Months or Most Recently Relevant to Health Maintenance Insurance [facility] < 65 [place] [id number] Care Teams Weed Inspector Relationship Specialty Start Date End Date Nadira Ospina NP [address] [place] [address] PCP - General Family Medicine 12/06/23
--- OUTSIDE RECORDS SUMMARY | 2024-08-09 09:03 | XMS_ITS | Clinical Summary ---
Author Organization [facility] Address [address] [place] [address] Phone Care Team Providers Care Scalp Treatment Specialist Name Role Phone Nadira Ospina IRLANDA Primary Care Provider [phone] Allergies No known active allergies Encounters Date Type Department Care Team Description 05/28/2024 7:57 AM EST - 05/28/2024 11:27 AM EST Emergency [facility] Emergency [address] [place] [address] Acute pain of right knee [...] age to complete this topic Meningococcal B Vaccine Aged Out No l onger eligible based on patient's age to complete [...] Signed Date: 05/28/2024 11:21 ET Workstation ID: [id number] Transcribed By: Self Edit Transcribed Date: 05/28/2024 [...] Signed Date: 05/28/2024 11:21 ET Workstation ID: [id number] Transcribed By: Self Edit Transcribed Date: 05/28/2024 11:21 ET us Claire COHEN CV VASCULAR PROCEDURES Final Result * XR Knee 4+ Views Right (05/28/2024 4:40 AM EST) Anatomical Region Laterality Modality Lower Extremities, Knee Right [facility] 05/28/2024 8:36 AM EST Impressions 05/28/2024 8:51 AM EST FINDINGS/IMPRESSION: No acute fracture or dislocation. ??Chondrocalcinosis. ??Mild medial compartment predominant degenerative change. ??No focal soft tissue swelling or joint effusion. -------- FINAL REPORT -------- Dictated By: DOMINGUEZ VANG Dictated Date: 05/28/2024 08:36 ET Assigned Physician: DOMINGUEZ VANG Reviewed and Electronically Signed By: DOMINGUEZ VANG Signed Date: 05/28/2024 08:51 ET Workstation ID: [id number] Transcribed By: Self Edit Transcribed Date: 05/28/2024 [...] Signed Date: 05/28/2024 08:51 ET Workstation ID: [id number] Transcribed By: Self Edit Transcribed Date: 05/28/2024 [...] Signed Date: 05/28/2024 08:50 ET Workstation ID: [id number] Transcribed By: Self Edit Transcribed Date: 05/28/2024 [...] Signed Date: 05/28/2024 08:50 ET Workstation ID: [id number] Transcribed By: Self Edit Transcribed Date: 05/28/2024 08:49 ET us Scot Julien Estrada MD IMG XR PROCEDURES Final Result from Last 3 Months Insurance [employer] MEDICARE Member Subscriber Plan / Payer (Ef fective 2024-Present) Name:Cristobal Menezes Relation to Subscriber:Self Name:Cristobal Menezes Payer ID:[id number] Group ID:Not on file Type:Not on file Address: [facility] [place] [id number] Care Teams Scalp Treatment Specialist Relationship Specialty Start Date End Date Nadira Ospina FNP [address] [place] [address] PCP - General Nurse Practitioner 05/28/24
--- OUTSIDE RECORDS SUMMARY | 2024-08-09 09:03 | XMS_ITS | Encounter Summary ---
Author Organization [employer] Address [address] [place] [address] 7t [place] [address] Care Team Providers Care Spring Setter Name Role Phone Lauren Morgan CAR JOCKEY Primary Care Provider [phone] Nadira Ospina NP Primary Care Provider [phone] Reason for Visit * Reason Comments Med Refill Encounter Details Date Type Department Care Team ([facility] st Contact Info) Description 08/30/2023 Refill [facility] [address] [place], [place] [phone] [facility] [address] [place], [place] [phone] Herniation of intervertebral disc between L4 and [...] is your housing situation today? I have éhctor norwood 01/18/[address] you [...] documented as of this encounter Care Teams Spring Setter Relationship Specialty Start Date End Date Lauren Morgan FNP [address] [place] [address] PCP - General Family Medicine 06/07/22 12/05/23 Nadira Ospina NP 230 [place] [address] PCP - General Family Medicine 12/06/23 documented as of this encounter
--- OUTSIDE RECORDS SUMMARY | 2024-08-09 09:03 | XMS_ITS | Encounter Summary ---
Author Organization [employer] Address [address] [facility] 7t [place] [address] Care Team Providers Care Hand Inserter Operator Name Role Phone Lauren MorganP Primary Care Provider [phone] Nadira Ospina NP Primary Care Provider [phone] Encounter Details Date Type Department Care Team (Late st Contact Info) Description 09/02/2023 Orders Only [facility] CHC MED & PEDS [address] [place], [place] [phone] Lauren Morgan FNP [address] [facility] [place] [address] Social History Tobacco Use Types Packs/Day Years [...] documented as of this encounter Care Teams Hand Inserter Operator Relationship Specialty Start Date End Date Lauren Morgan FNP 230 [place] [address] PCP - General Family Medicine 06/07/22 12/05/23 Nadira Ospina NP 230 [place] [address] PCP - General Family Medicine 12/06/23 documented as of this encounter
--- OUTSIDE RECORDS SUMMARY | 2024-08-09 09:03 | XMS_ITS | Encounter Summary ---
Author Organization [employer] Address [address] [place] [address] 7t [place] [address] Care Team Providers Care Health Care Facilities Inspector Name Role Phone Lauren MorganP Primary Care Provider [phone] Nadira Ospina NP Primary Care Provider [phone] Reason for Visit * Reason Comments Med Change Request Encounter Details Date Type Department Care Team ([facility] Contact Info) Description 09/02/2023 Refill [facility] MEDICINE [address] [place], [place] [phone] Lauren Morgan FNP [address] [place], [place] [phone] Social History Tobacco Use Types Packs/Day Years [...] enough money to get more: Never True 10/ Transportation Answer Date Recorded In the past [...] documented as of this encounter Care Teams Health Care Facilities Inspector Relationship Specialty Start Date End Date Lauren Morgan FNP [address] [place] [address] PCP - General Family Medicine 06/07/22 12/05/23 Nadira Ospina NP 230 [place] [address] PCP - General Family Medicine 12/06/23 documented as of this encounter
--- OUTSIDE RECORDS SUMMARY | 2024-08-09 09:03 | XMS_ITS | Encounter Summary ---
Author Organization [employer] Address [address] [place] [address] 7t [place] [address] Care Team Providers Care Sales And Service Change Leader Name Role Phone Lauren MorganP Primary Care Provider [phone] Nadira Ospina NP Primary Care Provider [phone] Reason for Visit * Reason Comments Med Refill Encounter Details Date Type Department Care Team ([facility] st Contact Info) Description 04/12/2023 Refill [facility]INE [address] [place], [place] [phone] Lauren Morgan FNP [address] [place], [place] [phone] Vitamin D deficiency Social History Tobacco Use [...] deficiency documented in this encounter Care Teams Sales And Service Change Leader Relationship Specialty Start Date End Date Lauren Morgan FNP [address] [place] [address] PCP - General Family Medicine 06/07/22 12/05/23 Nadira Ospina NP 230 [place] [address] PCP - General Family Medicine 12/06/23 documented as of this encounter
== END 2024-08-09 08:45 | disposition home or self-care (01) ==
LOC: HO.HHCX 08:44
PROVIDERS: Visit Provider Nurse Practitioner Family
DX: M25.562 Pain in left knee (principal)
CPT/HCPCS: 73564

== ENCOUNTER → 2024-08-09 08:45 | Outpatient (BNV) | payer OTHER, SELFPAY | PROVIDERS: Visit Provider Radiology Diagnostic Radiology | DX: M25.562 Pain in left knee (principal) | CPT/HCPCS: 73564 ==

== ENCOUNTER → 2025-02-06 17:31 | Outpatient (BNV) | payer OTHER, SELFPAY | PROVIDERS: PCP Nurse Practitioner Family; Visit Provider Radiology Diagnostic Ultrasound | DX: M17.11 Unilateral primary osteoarthritis, right knee (principal); M25.461 Effusion, right knee; M71.21 Synovial cyst of popliteal space [Baker], right knee; M23.611 Other spontaneous disruption of anterior cruciate ligament of right knee | CPT/HCPCS: 73721 ==

== ENCOUNTER 2025-02-06 17:40 | Outpatient (REF) | payer OTHER, SELFPAY ==
--- NOTE | ~2025-02-06 | MR_ITS ---
EXAMINATION: MR KNEE WITHOUT CONTRAST, RIGHT CLINICAL INFORMATION: Instability, giving out, history of meniscal injury. Patient reports prior meniscal repair. COMPARISON: None available. TECHNIQUE: MRI of the knee without contrast was performed using routine sequences on a high-field scanner. FINDINGS: MENISCI: Medial Meniscus: Small caliber of the body and the posterior horn/body junction. There is some irregularity in the posterior horn/body junction. These findings could reflect postsurgical result, irregular fraying/ tearing, or a combination of these. Lateral Meniscus: Intact LIGAMENTS: Cruciate: ACL mucoid degeneration. Intact PCL. Collateral: Intact EXTENSOR MECHANISM: Intact. Focus of susceptibility anterior to the patella. ARTICULAR CARTILAGE/BONE: Patellofemoral Compartment: Foci of mild chondromalacia in the patella. Medial Compartment: Chondral thinning in the weightbearing tibial plateau and the medial aspect of the femoral condyle. Lateral Compartment: No high-grade chondral loss. No fracture. No aggressive marrow replacing lesion. JOINT FLUID AND BURSAE: Small effusion. Small Hart's cyst. MR/MR knee RT wo con IMPRESSION: * Findings in the body and the posterior horn/body junction of the medial meniscus could reflect postsurgical result or age-indeterminate fraying/tear, or a combination of these, as detailed above. Correlate with surgical history. * ACL mucoid degeneration. * Mild medial compartment arthritis. Minimal chondromalacia patella. * Small effusion. Small Hart's cyst. Electronically signed by: Zach Veras MD 02/07/2025 02:38 PM [facility]
--- OUTSIDE RECORDS SUMMARY | 2025-02-06 19:14 | XMS_ITS | Encounter Summary ---
Author Organization [employer] Address [address] [place] [address] 7 [place] [address] Care Team Providers Care Wood Room Hand Name Role Phone Lauren MorganP Primary Care Provider [phone] Nadira Ospina NP Primary Care Provider Encounter Details Date Type Department Care Team (Late st Contact Info) Description 09/02/2023 Orders Only [facility] CHC MED & PEDS [address] [place], [place] [phone] Lauren Morgan FNP 230 [facility] [place] [address] Social History Tobacco Use Types Packs/Day Years [...] as of this encounter Plan of Treatment Upcoming Encounters Date Type Department Care Team (Late st Contact Info) Description 04/10/2025 9:30 AM EST Office Visit [facility]INE 230 [place] [address] Nadira Ospina NP [address] [place] [address] documented as of this encounter Visit Diagnoses Not on filedocumented in this encounter Additional Health Concerns Assessment Noted Time PHQ-9 Depression Total Score: 3 05/09/19 24 10:30 AM EST documented as of this encounter Care Teams Wood Room Hand Relationship Specialty Start Date End Date Lauren Morgan FNP 230 [place] [address] PCP - General Family Medicine 06/07/22 12/05/23 Nadira Ospina NP [address] [place] [address] PCP - General Family Medicine 12/06/23 documented as of this encounter
--- OUTSIDE RECORDS SUMMARY | 2025-02-06 19:14 | XMS_ITS | Encounter Summary ---
Author Organization [employer] Address [address] [place] [address] 7 [place] [address] Care Team Providers Care Water Treatment Technician Name Role Phone Lauren MorganP Primary Care Provider [phone] Nadira Ospina NP Primary Care Provider [phone] Reason for Visit * Reason Comments Med Refill Encounter Details Date Type Department Care Team ([facility] st Contact Info) Description 08/20/2023 Refill [facility] MEDICINE [address] [place], [place] [phone] Lauren Morgan FNP [address] [place], [place] [phone] Vitamin D deficiency Social History Tobacco Use [...] Description 04/10/2025 9:30 AM EST Office Visit [facility]INE [address] [place] [address] Nadira Ospina NP [address] [place] [address] documented as of this encounter Visit Diagnoses Diagnosis Vitamin D deficiency documented in this encounter Additional Health Concerns Assessment Noted Time PHQ-9 Depression Total Score: 3 05/09/19 24 10:30 AM EST documented as of this encounter Care Teams Water Treatment Technician Relationship Specialty Start Date End Date Lauren Morgan FNP 230 [place] [address] PCP - General Family Medicine 06/07/22 12/05/23 Nadira Ospina NP [address] [place] [address] PCP - General Family Medicine 12/06/23 documented as of this encounter
--- OUTSIDE RECORDS SUMMARY | 2025-02-06 19:14 | XMS_ITS | Encounter Summary ---
Author Organization [employer] Address [address] [place] [address] 7 [place] [address] Care Team Providers Care Computer Aided Drafter Name Role Phone Nadira Ospina NP Primary Care Provider [phone] Reason for Visit * Reason Comments Med Refill Encounter Details Date Type Department Care Team ([facility] st Contact Info) Description 02/06/2025 Refill [facility] [address] [place], [place] [phone] Nadira Ospina NP 230 [place], [place] [phone] Chronic low back pain, unspecified back pain laterality, unspecified whether sciatica present Social History Tobacco Use Types Packs/Day Years Used Date Smoking Tobacco: Former Cigarettes Smokeless Tobacco: Never Alcohol Use Standard Drinks/Week Comments Never 0 (1 standard drink = 0.6 oz pur e alcohol) Depression Answer Date Recorded Patient Health Questionnaire-9 Score 8 01/04/2025 Patient Health Questionnaire-9 Score 8 01/04/2025 Last PHQ-9: Questionnaire Data Not on file 1 Housing Stability Answer Date Recorded What is your housing situation today? I have housing today, but I am worried about losing housing in the future 01/04/[address] you li ve. Do you have problems with any of the following? None of the above 01/04/2025 Food Insecurity Answer Date Recorded Within the [...] Answer Date Recorded Patient Health Questionnaire-2 Score 3 01/04/2025 Internet Access Answer Date Recorded Internet Access [...] Description 04/10/2025 9:30 AM EST Office Visit [facility] [address] [place] [address] Nadira Ospina NP [address] [place] [address] documented as of this encounter Visit Diagnoses Diagnosis Chronic low back pain, unspecified back pain laterality, unspecified whether sciatica present documented in this encounter Additional Health Concerns Assessment Noted Time PHQ-9 Depression Total Score: 8 01/05/20 25 10:57 AM EDT documented as of this encounter Care Teams Computer Aided Drafter Relationship Specialty Start Date End Date Nadira Ospina NP 230 [place] [address] PCP - General Family Medicine 12/06/23 documented as of this encounter
--- OUTSIDE RECORDS SUMMARY | 2025-02-06 19:14 | XMS_ITS | Encounter Summary ---
Author Organization [employer] Address [address] [place] [address] 7 [place] [address] Care Team Providers Care Intelligence Support Officer Name Role Phone Lauren MorganP Primary Care Provider [phone] Nadira Ospina NP Primary Care Provider [phone] Reason for Visit * Reason Comments Med Refill Encounter Details Date Type Department Care Team ([facility] st Contact Info) Description 08/30/2023 Refill [facility] MEDICINE 230 [place], [place] [phone] Lauren Morgan FNP 230 [place], [place] [phone] Vitamin D deficiency Social History Tobacco Use [...] Description 04/10/2025 9:30 AM EST Office Visit [facility] MEDICINE 230 [place] [address] Nadira Ospina NP 230 [place] [address] documented as of this encounter Visit Diagnoses Diagnosis Vitamin D deficiency documented in this encounter Additional Health Concerns Assessment Noted Time PHQ-9 Depression Total Score: 3 05/09/19 24 10:30 AM EST documented as of this encounter Care Teams Intelligence Support Officer Relationship Specialty Start Date End Date Lauren Morgan FNP 230 [place] [address] PCP - General Family Medicine 06/07/22 12/05/23 Nadira Ospina NP 230 [place] [address] PCP - General Family Medicine 12/06/23 documented as of this encounter
--- OUTSIDE RECORDS SUMMARY | 2025-02-06 19:14 | XMS_ITS | Encounter Summary ---
Author Organization [employer] Address [address] [place] [address] 7 [place] [address] Care Team Providers Care Television Technician Name Role Phone Lauren MorganP Primary Care Provider [phone] Nadira Ospina NP Primary Care Provider [phone] Reason for Visit * Reason Comments Med Refill Encounter Details Date Type Department Care Team ([facility] st Contact Info) Description 04/12/2023 Refill [facility] MEDICINE 230 [place], [place] [phone] Lauren Morgan FNP [address] [place], [place] [phone] Vitamin D deficiency Social History Tobacco Use [...] Description 04/10/2025 9:30 AM EST Office Visit [facility] MEDICINE [address] [place] [address] Nadira Ospina NP 230 [place] [address] documented as of this encounter Visit Diagnoses Diagnosis Vitamin D deficiency documented in this encounter Care Teams Television Technician Relationship Specialty Start Date End Date Lauren Morgan FNP [address] [place] [address] PCP - General Family Medicine 06/07/22 12/05/23 Nadira Ospina NP [address] [place] [address] PCP - General Family Medicine 12/06/23 documented as of this encounter
--- OUTSIDE RECORDS SUMMARY | 2025-02-06 19:14 | XMS_ITS | Data Portability ---
Author Organization [place] - [facility], [facility] [place] - INPATIENT Address [address] [place] [address] Care Team Providers Care Picker Name Role Phone KAI MATA Primary Care Provider Assessment Encounter Date Assessment Date Assessment LastModified by Organization Details LastModified Time 09/10/2013 09/10/2013 DATA: He comes with his outside arthroscopic views as noted above. Weight bearing views were obtained today and they do show some medial arthrosis and a genu varum with an anatomic axis measuring 4 degrees varus. He was also sent for long leg alignment views at the [facility] on his way out. These show his weight bearing axis to be significantly medial, almost to the medial joint line, whereas on contralateral left knee his weight bearing axis is just on the downslope of the medial spine. 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 PLAN: I would like to get an MRI scan to assess all his intraarticular structures to make determination of what the appropriate treatment alternatives are and whether it s meniscus transplant with osteotomy or just osteotomy alone. I will see him back with the MRI scan for planning. Not available 09/12/2013 15:26:17 10/22/2013 10/22/2013 DATA: Outside MR I scan is reviewed. It really does show marked thinning of the articular cartilage medially. There is actually areas of exposed bone that are fairly significant. PLAN: Based on this, I would certainly recommend against meniscus transplant. He will continue to use the puttying and calking supervisor brace. We did discuss osteotomy in the future if the brace ceases to work. I will see him back at that point. Not available 10/24/2013 11:51:40 Plan of Treatment Reminders Order Date Submit Date Provider Last Modified By Organization Details Last Modified Time Details Appointments None recorded. Lab None recorded. Referral None recorded. Procedures None recorded. Surgeries None recorded. Imaging x-ray, knee - Long Leg Alignment Views Bilateral DX: Medial Knee Pain Joint Survey 3FT Patient to arrive with Order in Hand 09.10.2013. Thank you 2013 014 [facility], [address] [facility], [place], [address], 4 15:26:17 MRI, knee - Right Knee DX: Pain Post Meniscectom y, ? SONK Please contact patient at to schedule Right Knee MRI at [facility]. Please provide patient with disc of Right Knee MRI images. Authorizati on Number: [id number] valid 09.10.2013 to 11.08.2013 per Shannon at [facility]. Thank you 2013 014 [facility] (Imaging), [address] [place] [address], [id number], 4 15:26:17 Medication Orders None recorded. Patient TargetsNo targets recorded. Patient InstructionsNo instructions recorded. Reason for Referral None Reported. Results Created Date Observation Date Name Description Value Unit Range Abnormal Flag Note LastModifiedBy Organization Detail LastModifiedTime 09/11/19 14 09/10/2013 knee right 4 views minim um Fin al Report EXAM#: [id number] PROCED URE: 8NB 0101 KNEE RIGHT [...] HAMMOND M.D. On: Sep 10 2013 3:19P [facility] [address] [facility], [place], [address], 03/12/2015 04:00:38 09/11/19 14 09/10/2013 leg2+ joint s surve y 3FT Fin al Report EXAM#: [id number] PROCED URE: RAD 0133 LEG2+ JOINTS [...] ROBLEDO M.D. On: Sep 10 2013 5:24P [facility]iology [address] [facility], [place], [address], 03/12/2015 04:00:38 10/09/19 14 imagi ng/di agnos tic resul t No observ ation record ed. [email or web address] Not Available 2013 10:58:32 Result Notes None recorded. Problems Name Problem SNOMED Code Status Onset Date Resolution Date Notes Provider Name and Address Organization Details Recorded Time Knee pain Active Jennifer tello [place] [facility] 4 12:23:40 Current tear of medial cartilage AND/OR meniscus of knee Active Ju tello [place] [facility] 4 15:26:17 Osteoarthritis of knee [id number] Active Ju tello [place] [facility] 4 11:51:40 Problem Notes None recorded. Procedures Surgical History Date Name Laterality Status Provider Name and Address Organization Details Recorded Time 03/20/201 4 Orthopaedic Surgery completed [facility] 09/10/2013 13:26:51 Imaging Results None recorded. Procedure Notes None recorded. Medical Equipment None [...] Details Last Updated DateTime 09/10/2013 177.8 cm 26050.92216 g 22.2 kg/m2 [facility] 09/10/2013 13:26:51 Date Recorded Body height Body mass index (BMI) Body weight Provider Name and Address Organization Details Last Updated DateTime 10/22/2013 177.8 cm 23 kg/m2 12692.7792 g Laurita Harrisgracia [facility] 10/22/2013 10:16:04 Social History Question Answer Notes LastModified by Organizat ion Details LastModified Time Tobacco Smoking Status Current Every Day Smoker quit Laurita Harrisgracia [facility] 10/22/2013 10:16:04 Auto Related Injury? No Information not available 09/10/2013 What Types Of Sporting Activities Do You Participate In? Weights Information not available 09/10/2013 Work Related Injury? No Information not available 09/10/2013 Sex: Unknown Functional Status Question Answer Note LastModified by Organization D etails LastModified Time What is your exercise level? Moderate Information not available 09/10/2013 Mental Status None recorded. Family History Nothing Reported. Medical History Condition Response HIV or AIDS N Blood Disorder: Anemia, clotting disorde r, etc. (please specify) N Weight Gain / Loss N Reaction to General/Local Anesthesia N Ulcer / Stomach Bleeding / Indigestion N Psoriasis / Skin Rash N High Blood Pressure N Night Sweats N Hepatitis / Jaundice N Hearing Loss N Blood Clots / Phlebitis N Asthma / Shortness of Breath / Sleep Barrel Drum Cutter ea (please specify) N Stroke N Visual Loss or Glaucoma N Kidney / Bladder Infections N Chemical Dependency / Alcoholism N Pulmonary Embolism N Seizures / Epilepsy N Heart Condition: Heart Attac k, Afib, Irregular Heartbeat, etc. (please specify) N Cancer N Emphysema / Chronic Bronchitis N Thyroid Disorder N Any Other Significant Medical Issues N Depression or Anxiety N Diabetes: Type I or II (please specify) N Past Encounters Encounter ID Performer Location Encounter Start Date Encounter Closed Date Diagnosis/Indication Diagnosis SNOMED-CT Code Diagnosis ICD10 Code Diagnosis IMO Codes Diagnosis Note [id number] Rod Alvarez MD [facility] Office [address] [place] [phone] 09/10/2013 12:13:28 09/10/2013 13:54:59 Current tear of medial cartilage AND/OR meniscus of knee [id number] Rod Alvarez MD [facility] Office [address] [place] [phone] 2 10/22/2013 10:07:47 10/22/2013 10:30:35 Osteoarthritis of knee [id number] Health Concerns Section Related Observation LastModified by Organization Detai ls LastModified Time None Recorded Concern Status LastModified by Organization Details LastModified Time None Recorded Advance Directives Directive None Recorded Payers Insurance Date Sequence Insurance Name Policy Number Policy Ivy Covered Member ID Ivy Member ID Guarantor Name 06/24/2015 1 [facility] [id number] Noreen Hastings [id number] Menezes Notes Date Note Type [...] characterize as far as location is concerned. It s probably more medial than lateral, but some of it is central within the joint. He does not have mechanical symptoms. PMH: Nicely summarized in his intake sheet, which was reviewed with him. He is otherwise healthy and active. He works out every other day. Rod Alvarez MD [address] [place] [address], [phone], [facility] 09/14/2013 04:28:18 10/22/2013 text/html HPI DX: Medial compartment arthrosis of the right knee. HX: Ishan is back. He has been in the puttying and calking supervisor brace for about 4 weeks and notes that it has completely eliminated his pain. Rod Alvarez MD [address] [place] [address], [phone], [facility] 10/24/2013 12:22:45
--- OUTSIDE RECORDS SUMMARY | 2025-02-06 19:14 | XMS_ITS | Encounter Summary ---
Author Organization [employer] Address [address] [place] [address] Care Team Providers Care Licensed Pesticide Applicator Name Role Phone Jordan Hagen Primary Care Provider Gilmer Mcadams Primary Care Provider Gilmer Bender Primary Care Provider Jordan Lacey Primary Care Provider Unavail Lauren Peterson Primary Care Provider [phone] Nadira Ospina NP Primary Care Provider [phone] Reason for Visit * Reason Comments Med Refill Encounter Details Date Type Department Care Team (Late st Contact Info) Description 04/30/2022 Refill [facility] MEDICINE [address] [place] [address] [phone] Marilou Riggs FNP Chronic low back pain, [...] Description 04/10/2025 9:30 AM EST Office Visit [facility] MEDICINE [address] [place], [place] [phone] Nadira Ospina NP [address] [place], [place] [phone] documented as of this encounter Visit Diagnoses Diagnosis Chronic low back pain, unspecified back pain laterality, unspecified whether sciatica present documented in this encounter Care Teams Licensed Pesticide Applicator Relationship Specialty Start Date End Date Jordan Hagen AGNP PCP - General Family Medicine 03/03/22 05/06/22 Gilmer Biggs FNP PCP - General Family Medicine 05/07/22 05/16/22 Gilmer Biggs FNP PCP - General Family Medicine 05/17/22 05/26/22 Jordan Hagen AGNP PCP - General Family Medicine 05/27/22 06/06/22 Lauren Morgan FNP [address] [place] [address] PCP - General Family Medicine 06/07/22 12/05/23 Nadira Ospina NP [address] [place] [address] PCP - General Family Medicine 12/06/23 documented as of this encounter
--- OUTSIDE RECORDS SUMMARY | 2025-02-06 19:14 | XMS_ITS | Encounter Summary ---
Author Organization [employer] Address [address] [place] [address] 7 [place] [address] Care Team Providers Care Forestry Pilot Name Role Phone Lauren MorganP Primary Care Provider [phone] Nadira Ospina NP Primary Care Provider [phone] Reason for Visit * Reason Onset Date Comments Nurse Triage 02/22/2023 Encounter Details Date Type Department Care Team ([facility] st Contact Info) Description 02/22/2023 Telephone [facility] MEDICINE [address] [place], [place] [phone] Lauren Morgan FNP [address] [place], [place] [phone] Nurse Triage Social History Tobacco Use Types [...] drainage, fever. Advised Pt to come to [facility] today, open until 8pm. [...] documented in this encounter Plan of Treatment Upcoming Encounters Date Type Department Care Team ([facility] st Contact Info) Description 04/10/2025 9:30 AM EST Office Visit [facility] MEDICINE [address] [place] [address] Nadira Ospina NP [address] [place] [address] documented as of this encounter Visit Diagnoses Not on filedocumented in this encounter Care Teams Forestry Pilot Relationship Specialty Start Date End Date Lauren Morgan FNP [address] [place] [address] PCP - General Family Medicine 06/07/22 12/05/23 Nadira Ospina NP [address] [place] [address] PCP - General Family Medicine 12/06/23 documented as of this encounter
--- OUTSIDE RECORDS SUMMARY | 2025-02-06 19:14 | XMS_ITS | Encounter Summary ---
Author Organization [employer] Address [address] [place] [address] [address] [place] [address] Care Team Providers Care Mule Spinner Name Role Phone Nadira Ospina NP Primary Care Provider [phone] Encounter Details Date Type Department Care Team ([facility] st Contact Info) Description 05/29/2024 Telephone [facility] MEDICINE [address] [place] [address] Nadira Ospina NP [address] [place], [place] [phone] Social History Tobacco Use Types Packs/Day Years [...] Description 04/10/2025 9:30 AM EST Office Visit [facility] MEDICINE [address] [place] [address] Nadira Ospina NP [address] [place] [address] documented as of this encounter Visit Diagnoses Not on filedocumented in this encounter Additional Health Concerns Assessment Noted Time PHQ-9 Depression Total Score: 3 05/09/19 24 10:30 AM EST documented as of this encounter Care Teams Mule Spinner Relationship Specialty Start Date End Date Nadira Ospina NP [address] [place] [address] PCP - General Family Medicine 12/06/23 documented as of this encounter
--- OUTSIDE RECORDS SUMMARY | 2025-02-06 19:14 | XMS_ITS | Encounter Summary ---
Author Organization [employer] Address [address] [place] [address] 7 [place] [address] Care Team Providers Care Luggage Repairer Name Role Phone Lauren MorganP Primary Care Provider [phone] Nadira Ospina NP Primary Care Provider [phone] Reason for Visit * Reason Comments Med Change Request Encounter Details Date Type Department Care Team ([facility] Contact Info) Description 09/02/2023 Refill [facility] MEDICINE [address] [place], [place] [phone] Lauren Morgan FNP [address] [place], [place] [phone] Social History Tobacco Use Types Packs/Day Years [...] 9:30 AM EST Office Visit [facility] MEDICINE [address] [place] [address] Nadira Ospina NP [address] [place] [address] documented as of this encounter Visit Diagnoses Not on filedocumented in this encounter Additional Health Concerns Assessment Noted Time PHQ-9 Depression Total Score: 3 05/09/19 24 10:30 AM EST documented as of this encounter Care Teams Luggage Repairer Relationship Specialty Start Date End Date Lauren Morgan FNP [address] [place] [address] PCP - General Family Medicine 06/07/22 12/05/23 Nadira Ospina NP [address] [place] [address] PCP - General Family Medicine 12/06/23 documented as of this encounter
--- OUTSIDE RECORDS SUMMARY | 2025-02-06 19:14 | XMS_ITS | Encounter Summary ---
Author Organization [employer] Address [address] [place] [address] [address] [place] [address] Care Team Providers Care Farmworkers Name Role Phone Lauren MorganP Primary Care Provider [phone] Nadira Ospina NP Primary Care Provider [phone] Reason for Visit * Reason Comments Med Change Request Encounter Details Date Type Department Care Team ([facility] st Contact Info) Description 03/26/2023 Refill [facility] MEDICINE [address] [place], [place] [phone] Lauren Morgan FNP [address] [place], [place] [phone] Herniation of intervertebral disc between L4 and [...] Description 04/10/2025 9:30 AM EST Office Visit [facility] MEDICINE [address] [place] [address] Nadira Ospina, DAVID [address] [place] [address] documented as of this encounter Visit Diagnoses Diagnosis Herniation of intervertebral disc between L4 and L5 documented in this encounter Care Teams Farmworkers Relationship Specialty Start Date End Date Lauren Morgan FNP [address] [place] [address] PCP - General Family Medicine 06/07/22 12/05/23 Nadira Ospina NP [address] [place] [address] PCP - General Family Medicine 12/06/23 documented as of this encounter
--- OUTSIDE RECORDS SUMMARY | 2025-02-06 19:14 | XMS_ITS | Encounter Summary ---
Author Organization [employer] Address [address] [place] [address] [address] [place] [address] Care Team Providers Care Marketing Developer Name Role Phone Lauren Morgan CNC WOOD LATHE OPERATOR Primary Care Provider [phone] Nadira Ospina NP Primary Care Provider [phone] Reason for Visit * Reason Comments Med Refill Encounter Details Date Type Department Care Team ([facility] st Contact Info) Description 08/30/2023 Refill [facility] MEDICINE [address] [place], [place] [phone] [facility] [address] [place], [place] [phone] Herniation of intervertebral disc between L4 and [...] Description 04/10/2025 9:30 AM EST Office Visit [facility] MEDICINE [address] [place] [address] Nadira Ospina NP [address] [place] [address] documented as of this encounter Visit Diagnoses Diagnosis Herniation of intervertebral disc between L4 and L5 documented in this encounter Additional Health Concerns Assessment Noted Time PHQ-9 Depression Total Score: 3 05/09/19 24 10:30 AM EST documented as of this encounter Care Teams Marketing Developer Relationship Specialty Start Date End Date Lauren Morgan FNP [address] [place] [address] PCP - General Family Medicine 06/07/22 12/05/23 Nadira Ospina NP [address] [place] [address] PCP - General Family Medicine 12/06/23 documented as of this encounter
--- OUTSIDE RECORDS SUMMARY | 2025-02-06 19:14 | XMS_ITS | Encounter Summary ---
Author Organization [employer] Address [address] [place] [address] [address] [place] [address] Care Team Providers Care Online Program Coordinator Name Role Phone Gilmer Biggs Primary Care Provider Gilmer Bender Primary Care Provider Jordan Lacey Primary Care Provider Lauren AmesP Primary Care Provider [phone] Nadira Ospina NP Primary Care Provider [phone] Encounter Details Date Type Department Care Team (Late st Contact Info) Description 05/10/2022 Orders Only [facility] MEDICINE [address] [place], [place] [phone] Lauren Morgan FNP [address] [place], [place] [phone] IFG (impaired fasting glucose) (Primary Dx) Social [...] Description 04/10/2025 9:30 AM EST Office Visit [facility] MEDICINE [address] [place] [address] Nadira Ospina NP [address] [place] [address] documented as of this encounter Procedures Procedure [...] A1c 5.3 <5.7 % of total Hgb [facility] Comment: For the purpose of screening for the presence of diabetes: <5.7% Consistent with the absence of diabetes 5.7-6.4% Consistent with increased risk for diabetes (prediabetes) > or =6.5% Consistent with diabetes This assay result is consistent with a decreased risk of diabetes. Currently, no consensus exists regarding use of hemoglobin A1c for diagnosis of diabetes in children. According to [place] Diabetes Association (ADA) guidelines, hemoglobin A1c <7.0% represents optimal control in non- diabetic patients. Different metrics may apply to specific patient populations. Standards of Medical Care in Diabetes(ADA). Blood Venous blood specimen / Unknown 05/10/2022 9:25 AM EST 05/10/2022 9:25 AM EST Narrative [facility] - 05/10/2022 9:11 PM EST FASTING:YES FASTING: YES us Lauren Morgan [facility] LAB BLOOD ORDERABLES Final Resu lt [facility] [address] [place] [address] [facility] [address] [facility], (Nl2) [place] [address] * (ABNORMAL) Lipid Panel, Standard (05/10/2022 9:25 AM EST) Cholesterol, Total 187 <200 mg/dL [facility] [place] [facility] HDL Cholesterol 37(L) > OR = 40 mg/dL [facility] [place] [facility] Triglycerides 184(H) <150 mg/dL [facility] [place] [facility] LDL Cholesterol 119(H) mg/dL (calc) [facility] [place] [facility] Comment: Reference range: <100 Desirable range <100 mg/dL for primary prevention; <70 mg/dL for patients with CHD or diabetic patients with > or = 2 CHD risk factors. LDL-C is now calculated using the Joao calculation, which is a validated novel method providing better accuracy than the Friedewald equation in the estimation of LDL-C. Darek SANTOS et al. JEANNE. 2013;310(19): 8524-6660 (http://education.ViaView/faq/UZN471) Chol/HDLC Ratio 5.1(H) <5.0 (calc) [facility] [place] [facility] Non-HDL Cholesterol 150(H) <130 mg/dL (calc) [facility] [place] [facility] Comment: For patients with diabetes plus 1 major ASCVD risk factor, treating to a non-HDL-C goal of <100 mg/dL (LDL-C of <70 mg/dL) is considered a therapeutic option. Blood Venous blood specimen / Unknown 05/10/2022 9:25 AM EST 05/10/2022 9:25 AM EST Narrative [facility] - 05/10/2022 9:11 PM EST FASTING:YES FASTING: YES us Lauren FOURNIER LAB BLOOD ORDERABLES Final Resu lt SATHISH Garces [facility], [address] [place] [address] [facility] [place] [facility] [address] [facility], (Nl2) [place] [address] * (ABNORMAL) Comprehensive Metabolic Panel (05/10/2022 9:25 AM EST) Glucose 101(H) 65 - 99 mg/dL [facility] [place] [facility] Comment: Fasting reference interval For someone without known diabetes, a glucose value between 100 and 125 mg/dL is consistent with prediabetes and should be confirmed with a follow-up test. Urea Nitrogen (BUN) 9 7 - 25 mg/dL [facility] [place] [facility] Creatinine, Serum 0.81 0.70 - 1.30 mg/dL [facility] [place] [facility] [employer] eGFR 107 > OR = 60 mL/min/1 .73m2 [facility] [place] [facility] Comment: The eGFR is based on the CKD-EPI 2020 equation. To calculate the new eGFR from a previous Creatinine or Cystatin C result, go to https://www.kidney.org/professionals/ kdoqi/gfr%5Fcalculator BUN/Creatinine Ratio NOT APPLICABLE 6 - 22 (calc) [facility] [place] [facility] [employer] Sodium 139 135 - 146 mmol/L [facility] [place] [facility] [employer] [employer] Potassium 4.6 3.5 - 5.3 mmol/L [facility] [place] [facility] [employer] Chloride 101 98 - 110 mmol/L [facility] [place] [facility] [employer] Carbon Dioxide 26 20 - 32 mmol/L [facility] [place] [facility] [employer] [employer] Calcium 9.7 8.6 - 10.3 mg/dL [facility] [place] [facility] [employer] Protein, Total 7.5 6.1 - 8.1 g/dL [facility] [place] [facility] [employer] [employer] Albumin 4.9 3.6 - 5.1 g/dL [facility] [place] [facility] [employer] [employer] Globulin 2.6 1.9 - 3.7 g/dL (calc) [facility] [place] [facility] [employer] [employer] Albumin/Globul in Ratio 1.9 1.0 - 2.5 (calc) [facility] [place] [facility] [employer] [employer] Bilirubin, Total 0.4 0.2 - 1.2 mg/dL [facility] [place] [facility] [employer] [employer] Alkaline Phosphatase 77 35 - 144 U/L [facility] [place] [facility] [employer] [employer] AST 24 10 - 35 U/L [facility] [place] [facility] [employer] [employer] ALT 31 9 - 46 U/L [facility] [place] [facility] [employer] [employer] Blood Venous blood specimen / Unknown 05/10/2022 9:25 AM EST 05/10/2022 9:25 AM EST Narrative [facility] - 05/10/2022 9:11 PM EST FASTING:YES FASTING: YES Lauren FOURNIER LAB BLOOD ORDERABLES Final Resu lt [facility] [address] [facility], [address] [place] [address] [facility] [facility] [address] [facility], (N[address]) [place] [address] documented in this encounter Visit Diagnoses Diagnosis IFG (impaired fasting glucose)- Primary documented in this encounter Care Teams Online Program Coordinator Relationship Specialty Start Date End Date Gilmer Biggs FNP PCP - General Family Medicine 05/07/22 05/16/22 Gilmer Biggs FNP PCP - General Family Medicine 05/17/22 05/26/22 Jordan Hagen AGNP PCP - General Family Medicine 05/27/22 06/06/22 Lauren Morgan FNP [address] [place] [address] PCP - General Family Medicine 06/07/22 12/05/23 Nadira Ospina NP [address] [place] [address] PCP - General Family Medicine 12/06/23 documented as of this encounter
--- OUTSIDE RECORDS SUMMARY | 2025-02-06 19:14 | XMS_ITS | Patient Health Record ---
Author Organization [facility] Address [address] [facility] [place] [address] Care Team Providers Care Rn Cardiovascular Icu Name Role Phone Nadira Ospina Primary Care Provider Jayden Negro Unavailable [phone] AlissonCassandra aguirre Unavailable [phone] Allergies No Known Allergies Reason For Referral No Information Medications Medication SIG (Take, Route, Frequency, Duration) Notes Start Date End Date Status Ciclopirox Olamine 0.77 % 1 application Externally Twice a day to skin of feet including between the toes; Duration: 30 days Active Lisinopril Active Cyclobenzaprine HCl Active Ketoconazole 2 % 1 application Externally Once a day; Duration: 30 days Pt using Ciclopirox and is not working. Active Gabapentin Active Nabumetone Active Immunizations Vaccine Route Administration Date Status Comme nts Influenza Unknown 01/19/2024 Administered Social History Tobacco Use: Social History Observation Description Date Details (start date - stop date) Never Smoker NA - NA Tobacco use other than smoking: Question Answer Notes Are you an other tobacco user? No Tobacco Control (Standard) Question Answer Notes Tobacco use: Nonsmoker Additional Findings: Tobacco non-user Current no nsmoker AUDIT-C (Standard) Question Answer Notes Did you have a drink containing alcohol in the p ast year? No Points 0 Interpretation Negative Vital Signs Blood pressure diastolic 80 mm Hg 12/17/2024 Height 5ft 9in in 12/17/2024 Blood pressure systolic 120 mm Hg 12/17/2024 Weight 142 lbs 12/17/2024 BMI 20.97 kg/m2 12/17/2024 Procedures Procedure Date Ordered Date Performed Result Body Sit e 65013-LAHLSPL NAIL, 1-5 06/12/2024 N/A Encounters Encounter Location Date Provider Diagnosis [address] [address] 06/12/2024 Jayden Rogers Tinea pedis of both feet B35.3 ; Onychomycosis B35.1 ; Pain in right toe(s) M79.674 and Pain in left toe(s) M79.[address] [address] 09/27/2024 Cassandra Perica Tinea pedis of both feet B35.3 ; Onychomycosis B35.1 and Pain in right toe(s) M79.[address] [address] 12/17/2024 Cassandra Perica Tinea pedis of both feet B35.3 ; Onychomycosis B35.1 ; Pain in right toe(s) M79.674 and Toe pain, left M79.[address] [address] 04/18/2024 Jayden Rogers [address] [address] 06/07/2024 Jayden Rogers [address] [address] 07/13/2024 Jayden Rogers [address] [address] 09/27/2024 Jayden Rogers [address] [address] 12/17/2024 Jayden Rogers Assessments Encounter Date Diagnosis (ICD Code) Assessment Notes Treatment Notes Treatment Clinical Notes Section Notes 06/12/2024 Onychomycosis (ICD-10 - B35.1) 06/12/2024 Tinea pedis of both feet (ICD-10 - B35.3) 09/27/2024 Onychomycosis (ICD-10 - B35.1) 09/27/2024 Tinea pedis of both feet (ICD-10 - B35.3) 12/17/2024 Onychomycosis (ICD-10 - B35.1) 12/17/2024 Tinea pedis of both feet (ICD-10 - B35.3) 12/17/2024 Pain in right toe(s) (ICD-10 - M79.674) 09/27/2024 Pain in right toe(s) (ICD-10 - M79.674) 06/12/2024 Pain in right toe(s) (ICD-10 - M79.674) 06/12/2024 Pain in left toe(s) (ICD-10 - M79.675) 12/17/2024 Toe pain, left (ICD-10 - M79.675) Plan Of Treatment Pending Test Test Name Order Date [id number] NAIL, 1-5 06/12/2024 Next Appt Details Provider Name:Cassandra aguirre, 06/17/2025 09:00:00 AM, [address] [facility], [place], [address], Insurance Providers Payer Name Payer Address Payer Phone Subscriber Number Group Number Insured Name Patient Relationship to Insured Coverage Start Date Coverage End Date [facility] [employer] Claims [address] [place] [id number] [id number] Cristobal Menezes Self - patient is the insured Medical (General) History Medical History History ICD Code Anxiety Back,Hip,and Knee pain Broken bones Headaches/Migraines nerve disorder Osteoporosis Poor circulation Warts Chicken pox Joint implants/screws Transfusions TBI Hearing impaired Brain Injury Surgical History Surgery Date(Month/Year) Broken/Fracture Leg knee replacement Hospitalization History Reason Date(Month/Year) fell 06/26
--- OUTSIDE RECORDS SUMMARY | 2025-02-06 19:14 | XMS_ITS | Encounter Summary ---
Author Organization [employer] Address [address] [place] [address] [address] [place] [address] Care Team Providers Care Pals Nurse Name Role Phone Lauren MorganP Primary Care Provider [phone] Nadira Ospina NP Primary Care Provider [phone] Reason for Visit * Reason Onset Date Comments Med Refill 08/31/2023 Encounter Details Date Type Department Care Team (Late st Contact Info) Description 08/31/2023 Refill [facility] MED[facility]INE [address] [place], [place] [phone] Lauren Morgan FNP [address] [place], [place] [phone] Chronic low back pain, unspecified back pain [...] 9:30 AM EST Office Visit [facility] [address] [place] [address] Nadira Ospina NP [address] [place] [address] documented as of this encounter Visit Diagnoses Diagnosis Chronic low back pain, unspecified back pain laterality, unspecified whether sciatica present Herniation of intervertebral disc between L4 and L5 documented in this encounter Additional Health Concerns Assessment Noted Time PHQ-9 Depression Total Score: 3 05/09/19 10:30 AM EST documented as of this encounter Care Teams Pals Nurse Relationship Specialty Start Date End Date Lauren Morgan FNP [address] [place] [address] PCP - General Family Medicine 06/07/22 12/05/23 Nadira Ospina NP [address] [place] [id number] PCP - General Family Medicine 12/06/23 documented as of this encounter
--- OUTSIDE RECORDS SUMMARY | 2025-02-06 19:14 | XMS_ITS | Encounter Summary ---
Author Organization [employer] Address [address] [place] [address] [address] Care Team Providers Care Storage Center Manager Name Role Phone Jordan Hagen Primary Care Provider Gilmer Mcadams Primary Care Provider Gilmer Bender Primary Care Provider Jordan Lacey Primary Care Provider Unavail Lauren PetersonP Primary Care Provider [phone] Nadira Ospina NP Primary Care Provider [phone] Reason for Visit * Reason Comments Med Refill Encounter Details Date Type Department Care Team ([facility] st Contact Info) Description 04/19/2022 Refill [facility] [address] [place], [place] [phone] Barry Ott MD [address] [place], [place] [phone] Herniation of intervertebral disc between L4 and [...] Description 04/10/2025 9:30 AM EST Office Visit [facility] MEDICINE [address] [place] [address] Nadira Ospina, DAVID [address] [place] [address] documented as of this encounter Visit Diagnoses Diagnosis Herniation of intervertebral disc between L4 and L5 documented in this encounter Care Teams Storage Center Manager Relationship Specialty Start Date End Date Jordan Hagen AGNP PCP - General Family Medicine 03/03/22 05/06/22 Gilmer Biggs FNP PCP - General Family Medicine 05/07/22 05/16/22 Gilmer Biggs FNP PCP - General Family Medicine 05/17/22 05/26/22 Jordan Hagen AGNP PCP - General Family Medicine 05/27/22 06/06/22 Lauren Morgan FNP [address] [place] [address] PCP - General Family Medicine 06/07/22 12/05/23 Nadira Ospina, DAVID [address] [place] [address] PCP - General Family Medicine 12/06/23 documented as of this encounter
--- OUTSIDE RECORDS SUMMARY | 2025-02-06 19:14 | XMS_ITS | Clinical Summary ---
Author Organization [facility] Address [address] [place] [address] Phone Care Team Providers Care Professional Architect Name Role Phone Nadira Ospina IRLANDA Primary Care Provider [phone] Allergies No known active allergies Social History Tobacco Use Types Packs/Day Years [...] 110 05/28/2024 4:23 AM EST Temperature 36.3 C (97.3 F) 05/28/2024 4:23 AM EST Respiratory Rate 18 05/28/2024 4:23 AM EST Oxygen Saturation 100% 05/28/2024 4:23 AM EST Inhaled Oxygen Concentration - - Weight 64.6 kg (142 lb 8 oz) 05/28/2024 4:23 AM EST Height 175.3 cm (5' 9 ) 05/28/2024 4:23 AM EST Body Mass Index 21.04 05/28/2024 4:23 AM EST Plan of Treatment Health Maintenance Due Date Last Done Comments Colorectal Cancer Screening: Colonoscopy 1970 Diabetes: Annual GFR (Glomerular Filtration Rate) 1970 Diabetes: Annual Foot Exam 1980 Diabetes: Annual Retina Eye Exam 1980 Hepatitis B Vaccines (1 of 3 - 19+ 3-dose series) 1989 HIV Screening 11/28/2023 Medicare Annual Wellness Visit 11/28/2023 Social Influencers of Health Screening 11/28/2023 Zoster Vaccines (2 of 2) 12/08/2023 10/13/2023 Depression Screening 04/04/2024 Diabetes: Annual Urine Albumin-Creatinine Ratio (uACR) 05/28/2024 Diabetes: Blood Sugar Control Test (HGBA1C) 05/28/2024 05/10/2022 Hypertension/CHF/CAD Annual BMP Blood Test 05/28/2024 Pneumococcal Vaccine: 50+ Years (2 of 2 - PCV) 10/12/2024 10/13/2023 COVID-19 Vaccine (3 - 2024- season) 2024 09/12/2020, 08/15/2020 Influenza Vaccine (#1) 2024 , 03/16/2022, 01/31/2020, Additional history exists Cholesterol Screening (Lipid Panel) 05/10/2027 05/10/2022 DTaP,Tdap,and Td Vaccines (2 - Td or Tdap) 10/12/2033 10/13/2023 RSV Immunization Adult Patients (1 - 1-dose 75+ series) 2045 Hepatitis C Screening Completed 09/27/2022 HIB Vaccines Aged Out No longer eligi [...] on patient's age to complete this topic Insurance [employer] MEDICARE Member Subscriber Plan / Payer (Ef fective 2024-Present) Name:Cristobal Menezes [employer] Relation to Subscriber:Self Name:Cristobal Menezes Payer ID:[id number] Group ID:Not on file Type:Not on file Address: [address] [facility] [place] [phone] Care Teams Professional Architect Relationship Specialty Start Date End Date Nadira Ospina FNP [address] [place] [id number] PCP - General Nurse Practitioner 05/28/24
--- OUTSIDE RECORDS SUMMARY | 2025-02-06 19:14 | XMS_ITS | Clinical Summary ---
Author Organization [email or web address] Address [address] [place] [address] [address] [place] [address] Care Team Providers Care Hospice Spiritual Care Coordinator Name Role Phone Nadira Ospina NP Primary Care Provider [phone] Allergies No known active allergies Medications Multiple Vitamins-Minerals (Mens Daily Formula/Lycopene) capsule Take 1 capsule by mouth in the morning. 021 Active gabapentin (Neurontin) 600 MG tablet TAKE 1 AND 1/2 TABLETS BY MOUTH 3 TIMES A DAY 023 Active omega-3 (fish oil) 1000 MG capsule TAKE 1 CAPSULE (1,000 MG) BY MOUTH 2 TIMES DAILY. 180 capsule 2 024 Active Additional Information Patient taking differently: 1 capsule Oral Daily, Informant: Self, Reported on 01/04/2024 miconazole (Micotin) 2 % cream Apply 1 Application. topically 2 times daily. to affected area 024 Active lisinopril 20 MG tablet TAKE 1 TABLET BY MOUTH EVERY DAY IN THE MORNING 90 tablet 1 025 Active D-1000 Extra Strength 25 MCG (1000 UT) tabletIndications :Vitamin D deficiency TAKE 1 TABLET BY MOUTH EVERY DAY 90 tablet 1 025 Active nabumetone (Relafen) 750 MG tabletIndications :Herniation of intervertebral disc between L4 and L5 TAKE 1 TABLET BY MOUTH TWICE A DAY 180 tablet 3 025 Active rosuvastatin (Crestor) 10 MG tablet TAKE 1 TABLET BY MOUTH EVERY DAY 90 tablet 3 025 Active cyclobenzaprine (Flexeril) 10 MG tabletIndications :Chronic low back pain, unspecified back pain laterality, unspecified whether sciatica present TAKE 1 TABLET BY MOUTH TWICE A DAY (EVERY MORNING AND AT BEDTIME) NEEDED FOR MUSCLE SPASM 60 tablet Active mineral oil-hydrophilic petrolatum (Aquaphor) ointment Apply topically if needed for dry skin. 396 g 1 024 2024 cyclobenzaprine (Flexeril) 10 MG tabletIndications :Chronic low back pain, unspecified back pain laterality, unspecified whether sciatica present TAKE 1 TABLET BY MOUTH TWICE A DAY (EVERY MORNING AND AT BEDTIME) NEEDED FOR SPASMS 60 tablet 025 2024 Discontinued cyclobenzaprine (Flexeril) 10 MG tabletIndications :Chronic low back pain, unspecified back pain laterality, unspecified whether sciatica present TAKE 1 TABLET BY MOUTH TWICE A DAY (EVERY MORNING AND AT BEDTIME) NEEDED FOR SPASMS 60 tablet 025 2024 Discontinued Active Problems Problem Noted Date Diagnosed Date Recurrent right knee instability 01/04/2025 Assessment & Plan (01/04/2025 6:51 PM EDT): Orders: Referral to Orthopaedic Surgery; Future MR Knee w/o Contrast Right; Future Screening for colon cancer 01/04/2025 Assessment & Plan (01/04/2025 6:51 PM EDT): Orders: Cologuard colon cancer screening Healthcare maintenance 01/04/2025 Assessment & Plan (01/04/2025 6:51 PM EDT): Orders: Lipid Panel, Standard; Future Comprehensive Metabolic Panel; Future CBC auto differential; Future Encounter for immunization 01/04/2025 Assessment & Plan (01/04/2025 6:51 PM EDT): Orders: FLU VACCINE TRIVALENT [id number] (Fluarix) 19 yrs + Conductive hearing loss of left ear 01/31/2024 Speech delay 01/31/2024 Pain in both hands 01/31/2024 Assessment & Plan (02/04/2024 3:30 PM EDT): Referral to ortho Hyperlipidemia 01/31/2024 Assessment & Plan (01/04/2025 6:51 PM EDT): Assessment & Plan (02/04/2024 3:31 PM EDT): [...] PM EDT): Cyclobenzaprine beneficial Cervicalgia 05/07/2022 Convulsions (CMS/HCC) 05/07/2022 Excessive falling 05/07/2022 Osteoarthritis of knee 05/07/2022 Bipolar disorder 05/07/2022 Varicose veins of lower extremity 04/16/2022 IFG (impaired fasting glucose) 08/01/2018 Assessment & Plan (01/04/2025 6:51 PM EDT): Abnormal MRI, thoracic spine 08/08/2017 Chronic low back pain 08/08/2017 Herniation of intervertebral disc between L5 and S1 08/08/2017 Knee pain 10/13/2016 Post-traumatic osteoarthritis of both knees 10/02 Adult attention deficit hyperactivity disorder 0 08/10/2016 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 Assessment & Plan (02/04/2024 3:32 PM EDT): Stable, in remission Active Denies mh concerns Concerned re speech delay referral to speech therapy Resolved Problems Problem Noted Date Diagnosed Date Resolved Date Diabetes due to undrl condit ion w oth diabetic neuro comp 02/04/2024 01/04/2025 Assessment & Plan (01/04/2025 6:51 PM EDT): Orders: POCT Glucose POCT Hgb A1c Encounters Date Type Department Care Team Description 02/06/2025 Refill [facility] [place] [address] Nadira Ospina NP Chronic low back pain, unspecified back pain laterality, unspecified whether sciatica present 01/28/[address] [address] Nadira Ospina NP APR RECALL 01/18/2025 Results Follow-Up [address] [address] Nadira Ospina NP POCT Glucose, POCT Hgb A1c, Cologuard colon cancer screening 01/09/[address] [address] Name, MD Mega Chronic low back pain, unspecified back pain laterality, unspecified whether sciatica present 01/04/2025 10:30 AM EDT Office Visit [address] [address] Nadira Ospina NP Recurrent right knee instability (Primary Dx); 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); Encounter for immunization; Healthcare maintenance; Moderate mixed hyperlipidemia not requiring statin therapy; Screening for colon cancer; IFG (impaired fasting glucose) 01/04/2025 Travel 01/03/[address] [address] Nadira Ospina NP CHARTPREP 12/11/[address] [address] Nadira Ospina NP Chronic low back pain, unspecified back pain laterality, unspecified whether sciatica present 11/14/[address] [address] Cristal Neal NP Chronic low back pain, unspecified back pain laterality, unspecified whether sciatica present from Last 3 Months Immunizations Immunization Administration Dates Next Due INFLUENZA VACCINE QUADRIVALE NT RECOMBINANT PRESERVATIVE FREE RIV4 01/31/2020 Influenza Injectable Quadriv alant Preservative Free IIV4 MDCK 03/16/2022,05/13/2017 Influenza injectable quadriv alent preservative free 03/16/2019,02/03/2018 Influenza, seasonal, injecta ble, preservative free 01/04/2025,01/31/2024,11/25/2014 Moderna Covid-19 Vaccine 12+ 09/12/2020,08/16/19 21 Pneumococcal [...] Sign Reading Time Taken Comments Blood Pressure 134/80 01/04/2025 10:43 AM EDT Pulse 88 01/04/2025 10:43 AM EDT Temperature 36.6 C (97.8 F) 01/04/2025 10:43 AM EDT Respiratory Rate 18 01/04/2025 10:43 AM EDT Oxygen Saturation 98% 06/01/2024 11:16 AM EST Inhaled Oxygen Concentration - - Weight 61.7 kg (136 lb) 01/04/2025 10:43 AM EDT Height 175.3 cm (5' 9 ) 01/04/2025 10:43 AM EDT Body Mass Index 20.08 01/04/2025 10:43 AM EDT Plan of Treatment Upcoming Encounters Date Type Department Care Team (Late st Contact Info) Description 04/10/2025 9:30 AM EST Office Visit [facility] [address] [place] [address] Nadira Ospina NP [address] [place] [address] Health Maintenance Due Date Last Done Comments CT Colonography 1970 Colonoscopy 1970 FIT 1970 Sigmoidoscopy 1970 Disability Screening 1970 Diabetes: Foot Exam 1980 Eye Exam 1980 Diabetes: Urine Protein Screening 1989 Hepatitis B Vaccines (1 of 3 - 19+ 3-dose series) 1989 Lipid Panel 05/10/2023 05/10/2022, 06/2 07/2020, 09/19/2020 Zoster Vaccines (2 of 2) 12/08/2023 10/13/2023 Pneumococcal Vaccine: 50+ Years (2 of 2 - PCV) 10/12/2024 10/13/2023 COVID-19 Vaccine (3 - season) 2024 09/12/2020, 08/15/2020 Diabetes: Hemoglobin A1C 07/05/2025 025, 05/10/2022, 09/19/2020 Alcohol/Substance Use Screening 01/04/2026 01/04/2025 Depression Screening 01/04/2026 01/04/2025, 01/05/20 25 SDOH Screening 01/04/2026 01/04/2025 Tobacco Screening 01/04/2026 01/04/2025 Colorectal Cancer Screening 01/12/2026 FOBT 01/12/2026 01/12/2025 FIT DNA/Cologuard 01/13/2028 01/12/2025 DTaP/Tdap/Td Vaccines (2 - Td or Tdap) 10/12/2033 10/13/2023 RSV Patients and Patients Aged 60 years or older (1 - 1-dose 75+ series) 2045 HIV Screening Completed 09/27/2022 Hepatitis C Screening Completed 09/27/2022 Influenza Vaccine Completed 01/04/2025, , 01/19/2024, Additional history exists HIB Vaccines Aged Out [...] Procedure Name Priority Date/Time Associated Diagnosis Comments LAB COLOGUARD COLON CANCER SCREEN Routine 01/12/2025 7:00 AM EDT Screening for colon cancer POCT GLYCATED HEMOGLOBIN, TOTAL Routine 01/04/2025 12:08 PM EDT 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) POCT GLUCOSE Routine 01/04/2025 10:54 AM EDT 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 colon cancer screening (01/12/2025 7:00 AM EDT) Cologuard Result Negative Negative 01/19/20 5:12 AM EDT [facility] (CLIA #:[id number]) Comment: The Cologuard (TM) test was performed on this specimen. NEGATIVE TEST RESULT. A negative Cologuard result indicates a low likelihood that a colorectal cancer (CRC) or advanced adenoma (adenomatous polyps with more advanced pre-malignant features) is present. The chance that a person with a negative Cologuard test has a colorectal cancer is less than 1 in 1500 (negative predictive value >99.9%) or has an advanced adenoma is less than 5.3% (negative predictive value 94.7%). These data are based on a prospective cross-sectional study of 10,000 individuals at average risk for colorectal cancer who were screened with both Cologuard and colonoscopy. (Karlee Belle al, N Engl J Med 2014;370(14):1286- 1297) The normal value (reference range) for this assay is negative. COLOGUARD RE-SCREENING RECOMMENDATION: Periodic colorectal cancer screening is an important part of preventive healthcare for asymptomatic individuals at average risk for colorectal cancer. Following a negative Cologuard result, the [place] [employer] Society and U.S. Multi-Society Task Force screening guidelines recommend a Cologuard re-screening interval of 3 years. References: [place] [employer] Guideline for Colorectal Cancer Screening: https://www.cancer.org/cancer/uvwdv-tabmis-hlwfso/pptruheht-gaasglnwv-megzvkj/ac s-rec ommendations.html.; Pelon DK, Fidel PIMENTEL, Biju GoreK, Colorectal Cancer Screening: Recommendations for Physicians and Patients from the U.S. Multi-Society Task Force on Colorectal Cancer Screening , Am J Gastroenterology 2017; 112:0379-0284. TEST DESCRIPTION: Composite algorithmic analysis of stool DNA-biomarkers with hemoglobin immunoassay. Quantitative values of individual biomarkers are not reportable and are not associated with individual biomarker result reference ranges. Cologuard is intended for colorectal cancer screening of adults of either sex, 45 years or older, who are at average-risk for colorectal cancer (CRC). Cologuard has been approved for use by the U.S. FDA. The performance of Cologuard was established in a cross sectional study of average-risk adults aged 50-84. Cologuard performance in patients ages 45 to 49 years was estimated by sub-group analysis of near-age groups. Colonoscopies performed for a positive result may find as the most clinically significant lesion: colorectal cancer [4.0%], advanced adenoma (including sessile serrated polyps greater than or equal to 1cm diameter) [20%] or non- advanced adenoma [31%]; or no colorectal neoplasia [45%]. These estimates are derived from a prospective cross-sectional screening study of 10,000 individuals at average risk for colorectal cancer who were screened with both Cologuard and colonoscopy. (Karlee Belle al, N Engl J Med 2014;370(14):3880-9006.) Cologuard may produce a false negative or false positive result (no colorectal cancer or precancerous polyp present at colonoscopy follow up). A negative Cologuard test result does not guarantee the absence of CRC or advanced adenoma (pre-cancer). The current Cologuard screening interval is every 3 years. ([place] [employer] Society and U.S. Multi-Society Task Force). Cologuard performance data in a 10,000 patient pivotal study using colonoscopy as the reference method can be accessed at the following location: www.RNDOMN.[employer]/results. Additional description of the Cologuard test process, warnings and precautions can be found at www.[employer].[email or web address]. Stool specimen (specimen) 01/12/2025 7:00 AM EDT 01/14/2025 10:49 AM EDT Nadira Ospina NP LAB MOLECULAR DIAGNOSTICS ORDERA BLES Final Result [facility] (CLIA #:[id number]) [address] [place] [address], * POCT Hgb A1c (01/04/2025 12:08 PM EDT) Hemoglobin A1C 5.3 4.0 - 5.7 % Blood 01/04/2025 12:0 8 PM EDT Nadira Ospina [employer] POINT OF CARE TEST ENTER/EDIT OR DERABLES Final Result * POCT Glucose (01/04/2025 10:54 AM EDT) Glucose Blood, POC 100 60 - 200 mg/dL Blood Capillary blood specimen / Unknown 01/04/2025 10:54 AM EDT Nadira Ospina NP POINT OF CARE TEST ENTER/EDIT OR DERABLES Final Result * Referral to Neurology (01/03/2025) Lauren Morgan FRAME REPAIRER OUTPATIENT REFERRAL ORDERABLES Final Result * HIV-1 RNA, Quantitative, Real-Time PCR with Reflex to Genotype (RTI, PI, Integrase) (09/27/2022 8:32 AM EDT) Pathologist [facility] HIV 1 RNA, QN PCR NOT DETECTED copies/mL [facility], HIV 1 RNA, QN PCR NOT DETECTED Log copies/mL [facility], Comment: REFERENCE RANGE: NOT DETECTED copies/mL NOT DETECTED Log copies/mL This test was performed using Real-Time Polymerase Chain Reaction. Reportable range is 20 to 10,000,000 copies/mL (1.30-7.00 Log copies/mL). 09/27/2022 8:32 AM EDT 09/27/2022 8:33 AM EDT Narrative [facility] - 09/30/2022 7:15 PM EDT FASTING:NO FASTING: NO us Lauren Morgan FRAME REPAIRER LAB BLOOD ORDERABLES Final Resu lt [facility] [address], [place] [address] [facility], [address] [place] [address] * Hepatitis C Antibody with Reflex to HCV, RNA, Quantitative, Real-Time PCR (09/27/2022 8:32 AM EDT) [facility] Hepatitis C Antibody NON-REACT ANA MARÍA NON-REACT ANA MARÍA [facility] Comment: HCV antibody was non-reactive. There is no laboratory evidence of HCV infection. In most cases, no further action is required. However, if recent HCV exposure is suspected, a test for HCV RNA (test code 85397) is suggested. For additional information please refer to http://education.[employer]/faq/BER39c2 (This link is being provided for informational/ educational purposes only.) Blood Venous blood specimen / Unknown 09/27/2022 8:32 AM EDT 09/27/2022 8:33 AM EDT Narrative [facility] - 09/30/2022 7:15 PM EDT FASTING:NO FASTING: NO us LaurenRanovus [facility] LAB BLOOD ORDERABLES Final Resu lt Performing Organization Address City/[facility]/ZIP Co de Phone Number SATHISH Garces [address], [facility] [place] [address] [facility] [place] [employer] [address] [place] [address] * (ABNORMAL) Lipid Panel, Standard (05/10/2022 9:25 AM EST) Cholesterol, Total 187 <200 mg/dL [facility] [place] [employer] HDL Cholesterol 37(L) > OR = 40 mg/dL [facility] [place] [facility] Triglycerides 184(H) <150 mg/dL [facility] [place] [facility] [facility] LDL Cholesterol 119(H) mg/dL (calc) [facility] [place] [employer] [facility] Comment: Reference range: <100 Desirable range <100 mg/dL for primary prevention; <70 mg/dL for patients with CHD or diabetic patients with > or = 2 CHD risk factors. LDL-C is now calculated using the Darek-Ann calculation, which is a validated novel method providing better accuracy than the Friedewald equation in the estimation of LDL-C. Darek SS et al. JEANNE. 2013;310(19): 8002-2540 (http://education.Gist/faq/CTZ538) Chol/HDLC Ratio 5.1(H) <5.0 (calc) [facility] [place] [facility] Non-HDL Cholesterol 150(H) <130 mg/dL (calc) [facility] [place] [employer] Comment: For patients with diabetes plus 1 major ASCVD risk factor, treating to a non-HDL-C goal of <100 mg/dL (LDL-C of <70 mg/dL) is considered a therapeutic option. Blood Venous blood specimen / Unknown 05/10/2022 9:25 AM EST 05/10/2022 9:25 AM EST Narrative [facility] - 05/10/2022 9:11 PM EST FASTING:YES FASTING: YES Lauren [employer] [facility] LAB BLOOD ORDERABLES Final Resu lt Performing Organization Address City/[facility]/ZIP Co de Phone Number SATHISH Garces [address], [place] [address] [facility] [address] [facility], ([address]) [place] [address] from Last 3 Months or Most Recently Relevant to Health Maintenance Insurance [facility] < [address] [id number] Care Teams Hospice Spiritual Care Coordinator Relationship Specialty Start Date End Date Nadira Ospina NP [address] [place] [id number] PCP - General Family Medicine 12/06/23
== END 2025-02-06 17:41 | disposition home or self-care (01) ==
LOC: HO.MRI 17:40
PROVIDERS: PCP Nurse Practitioner Family; Visit Provider Nurse Practitioner Family
DX: M23.51 Chronic instability of knee, right knee (principal)
CPT/HCPCS: 73721

== ENCOUNTER 2025-03-18 08:19 | Outpatient (AMB) | payer OTHER, SELFPAY ==
[2025-03-18 08:32] VITALS: BMI 19.9
--- NOTE | 2025-03-18 08:32 | A.OFFVIS_ITS ---
Vital Signs 03/18/25 08:32 Height 5 ft 9 in Weight 135 lb BMI 19.9 Intake Visit Reasons: OV-Right Knee Pain-follow up Intake Note: Cristobal is a 54 year old male who presents today for a follow up of his Right Knee. The right knee was last injected on 04/13/24. Patient reports that he has had an MRI that shows torn meniscus and cartilage. He reports that he did many neurological tests that shows that the symptoms of his leg is not neurological. He explains that he would like a Right TKA as he feels that his symptoms are limiting his daily activities. Allergies No Known Allergies (No Known Allergies*) Allergy (Verified 03/18/25 08:36) HPI HPI OV-Right Knee Pain-follow up: Details: Cristobal is a 54 year old male who presents today for a follow up of his Right Knee. The right knee was last injected on 04/13/24. Patient reports that he has had an MRI that shows torn meniscus and cartilage. He reports that he did many neurological tests that shows that the symptoms of his leg is not neurological. He explains that he would like a Right TKA as he feels that his symptoms are limiting his daily activities. MRI @ [facility] – [place]: IMPRESSION: * Findings in the body and the posterior horn/body junction of the medial meniscus could reflect postsurgical result or age-indeterminate fraying/tear, or a combination of these, as detailed above. Correlate with surgical history. * ACL mucoid degeneration. * Mild medial compartment arthritis. Minimal chondromalacia patella. * Small effusion. Small Hart's cyst. HPI Comments Details: Interval History The patient is a 54-year-old male presenting with follow-up for right knee pain management. The patient reports persistent right knee pain, particularly under the kneecap, exacerbated by twisting movements. He describes a lack of balance and equilibrium, which has significantly impacted his ability to engage in physical activities such as gym workouts and hiking, which he has ceased for the past month due to knee pain. The patient notes that a previous knee injection provided relief for only a couple of days. He expresses frustration over the inability to perform a knee replacement due to insufficient arthritis severity, despite being informed of moderate arthritis by MRI results. The patient has a history of knee surgery with post-surgical changes and an old meniscal tear, which he believed had been resolved. He has been advised to consult with pain management specialists for further evaluation and potential genicular nerve block treatment. Results - MRI of the right knee shows mild to moderate patellofemoral arthritis and post-surgical changes Of the medial meniscus [facility] Medical History Traumatic brain injury Impingement syndrome, shoulder, left Anxiety Elevated cholesterol ADHD, adult residual type Bipolar 1 disorder Patellar disorder Post-traumatic osteoarthritis of left knee Graves disease Surgical History History of right knee surgery Hx of surgical procedure History of left knee surgery H/O vasectomy Family History Father CVD (cardiovascular disease) Mother Hypertension Son No problems noted. 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 He has a unsteady gait that appears neurologic in origin. He has a history of closed head injury. Vital Signs: BMI result Body Mass Index 19.9 Assessment & Plan Assessment & Plan (1) Osteoarthritis of patellofemoral joint: Code(s): M17.10 - Unilateral primary osteoarthritis, unspecified knee Category: Medical Plan Plan 1. Right Knee Pain With Mild To Moderate Patellofemoral Arthritis The plan includes referral to pain management for evaluation and consideration of a genicular nerve block to alleviate knee pain. The patient is advised to continue with conservative management, including physical therapy and activity modification, to manage symptoms. Follow-up is recommended in three months to assess the effectiveness of the pain management strategies and to reevaluate the need for further interventions. 2. Post-Surgical Changes In The Right Knee With Old Meniscal Tear No surgical intervention is planned at this time due to the absence of signifi cant arthritis or mechanical symptoms that would warrant knee replacement. The patient is encouraged to maintain communication with orthopedic and pain management teams to monitor any changes in symptoms or functional status. Discussion Notes The discussion focused on the patient's right knee pain and the findings from the recent MRI, which showed mild to moderate patellofemoral arthritis and post- surgical changes. The patient expressed concern about the severity of his arthritis, as he was informed it was moderate, but was advised that it was not severe enough to warrant knee replacement surgery. The risks and benefits of conservative management versus surgical intervention were discussed, with emphasis on the potential benefits of pain management strategies such as a genicular nerve block. The patient was advised to follow up with pain management specialists and to return for reevaluation in three months. Coding Level of Care Code Est Pt Level 4 (99260) Diagnoses Osteoarthritis of patellofemoral joint M17.10
== END 2025-03-18 09:17 | disposition home or self-care (01) ==
LOC: HO.HOS 08:20
PROVIDERS: PCP Nurse Practitioner Family; Visit Provider Orthopaedic Surgery
DX: M17.11 Unilateral primary osteoarthritis, right knee (principal)
CPT/HCPCS: 99214

== ENCOUNTER → 2025-03-18 08:19 | Outpatient (BNVA) | payer OTHER, SELFPAY | PROVIDERS: PCP Nurse Practitioner Family; Visit Provider Orthopaedic Surgery | DX: M17.11 Unilateral primary osteoarthritis, right knee (principal) | CPT/HCPCS: 99212 ==